=== PATIENT | female | born 1955 | race Caucasian/White ===

== ENCOUNTER 2024-03-03 15:13 | Emergency (ER) | payer MEDICARE, SELFPAY ==
[2024-03-03] VITALS (14 sets, daily range): BP systolic 80–101; BP diastolic 52–59; PULSE 56–80; RESP 18–20; TEMP 36.2–36.9; O2SAT 87–100; BMI 20.2
--- NOTE | 2024-03-03 17:17 | ED_ITS ---
HPI - General Adult General Time Seen by Provider: 17:17 Date Seen: 03/03/24 Chief complaint: Nausea/Vomiting Stated complaint: Vomiting blood, cough Time Seen by Provider: 03/03/24 17:17 Source: patient and RN notes reviewed Mode of arrival: ambulatory Limitations: no limitations History of Present Illness HPI narrative: Мария is a very pleasant 69-year-old female with a history of anxiety, hiatal hernia status post repair who comes to the emergency room for evaluation of vomiting of blood, epigastric pain and blood in stool. Patient notes the onset of vomiting and diarrhea 48 hours ago. She notes that she also has a cough and some phlegm when coughing. She states that she has had blood in her vomit and stool but when pressed for more details about how much she has a challenging historian. She states that she has had a history of surgeries for a hiatal hernia and even had to have her esophagus stretched. She notes that the discomfort in her upper abdomen is worse with lying down. She recently moved to [place] from [place]. She sees Dr. Dye and has been did [facility] 1 time. This is her 1st visit to [place]. She is supposed to follow-up with GI specialist in the next 2 weeks. Related Data Home Medications ?Medication ?Instructions ?Recorded ?Confirmed buspirone PO BID 03/03/24 levothyroxine 50 mcg capsule 50 mcg PO DAILY 03/03/24 03/03/24 metoprolol succinate PO DAILY 03/03/24 Allergies Allergy/AdvReac Type Severity Reaction Status Date / Time copper Allergy Mild rash Verified 03/03/24 15:35 rubén Allergy Mild rash Uncoded 03/03/24 15:34 Review of Systems Status of ROS: Reports: 10 or more systems reviewed and unremarkable except as noted in History and below Const: Reports: chills and fatigue; Denies: fever Eyes: Denies: change in vision ENMT: Denies: throat pain, neck pain, throat swelling or nasal congestion Cardio: Reports: chest pain and lightheadedness; Denies: swelling of feet/ankles or shortness of breath with exertion Resp: Reports: cough; Denies: shortness of breath GI: Reports: abdominal pain, nausea, vomiting, diarrhea and blood in stool : Denies: painful urination Musculo: Denies: back pain or neck pain Endo: Reports: fatigue Allergy/Immuno: Denies: throat swelling PFSH PFS Social History Smoking Status: Never smoker Do you use any of these nicotine containing products: None How often do you have a drink containing alcohol: never AUDIT-C Alcohol total score: 0 Non-prescribed substance use: denies use Exam Narrative: Exam Narrative: Мария is alert and oriented. She has good color in the room. External ears eyes nose clear. Oral cavity with moist mucous membranes. Neck is supple. Heart with regular rate and rhythm and lungs are clear. Abdomen is soft without significant tenderness. Lower extremities without edema or calf tenderness. Const: Vital Signs, click to edit/add: Vital Signs - 24 hr 03/03/24 15:28 03/03/24 17:22 03/03/24 17:24 Temperature 98.4 F 98.2 F Pulse Rate 56 L Pulse Rate [Pulse Oximeter] 66 67 Respiratory Rate 20 20 Blood Pressure 97/59 L Blood Pressure [Ri ght Upper Arm] 91/54 L 80/58 L Pulse Oximetry 97 96 97 Oxygen Delivery Me thod Room Air Room Air 03/03/24 17:25 03/03/24 17:27 03/03/24 18:00 Temperature Pulse Rate 74 57 L Pulse Rate [Pulse Oximeter] Respiratory Rate Blood Pressure Blood Pressure [Ri ght Upper Arm] 97/59 L Pulse Oximetry 98 97 Oxygen Delivery Me thod 03/03/24 18:13 03/03/24 18:15 03/03/24 19:00 Temperature Pulse Rate 59 L 62 57 L Pulse Rate [Pulse Oximeter] Respiratory Rate Blood Pressure 92/52 L Blood Pressure [Ri ght Upper Arm] Pulse Oximetry 97 97 98 Oxygen Delivery Me thod 03/03/24 19:15 03/03/24 19:39 03/03/24 19:43 Temperature 97.2 F L Pulse Rate 80 62 Pulse Rate [Pulse Oximeter] 57 L Respiratory Rate 18 Blood Pressure Blood Pressure [Ri ght Upper Arm] 88/57 L Pulse Oximetry 93 87 L 99 Oxygen Delivery Me thod Room Air 03/03/24 20:00 03/03/24 22:31 Temperature Pulse Rate 59 L 59 L Pulse Rate [Pulse Oximeter] Respiratory Rate Blood Pressure 101/59 L Blood Pressure [Ri ght Upper Arm] Pulse Oximetry 95 100 Oxygen Delivery Me thod Room Air Room Air Documenting provider has reviewed patient's vital signs: yes Course Course ED Course: Differential diagnosis includes but is not limited to or influenza, gastroenteritis, esophageal rupture, anxiety, will place IV give 1 L normal saline, Protonix 80 mg and Zofran 4 mg. Reevaluation(s) Reevaluation #1: Patient noted to have persistent low blood pressures 88 without any evidence of tachycardia. Patient is feeling better after morphine 4 mg. In fact she wants to eat and drink. We have not seen any vomiting while in the ER. Upon further discussion she notes that she only had some loose stools briefly and that normally she deals with constipation. She has not had any further stools in the ED. after CT of the chest abdomen and pelvis which is reassuring I do a rectal exam with significant stool in the rectal vault. Fecal occult test is accomplished. Awaiting 2nd hemoglobin check as it was 9.2 at 1744 hours. Chemistry panel reassuring as are LFTs. Patient is negative for RSV influenza and COVID and troponin is negative. Vital Signs Vital signs: Initial Vital Signs Temperature 98.4 F 03/03/24 15:28 Temperature Source Temporal Artery Scan 03/03/24 15:28 Pulse Rate 66 03/03/24 15:28 Respiratory Rate 20 03/03/24 15:28 Blood Pressure 91/54 L 03/03/24 15:28 Blood Pressure Mean 66 L 03/03/24 15:28 Blood Pressure Position Sitting 03/03/24 15:28 Pulse Oximetry 97 03/03/24 15:28 Oxygen Delivery Method Room Air 03/03/24 15:28 Vital Signs Temperature 98.4 F 03/03/24 15:28 Pulse Rate 66 03/03/24 15:28 Respiratory Rate 20 03/03/24 15:28 Blood Pressure 91/54 L 03/03/24 15:28 Pulse Oximetry 97 03/03/24 15:28 Oxygen Delivery Method Room Air 03/03/24 15:28 Temperature 97.2 F L 03/03/24 19:43 Pulse Rate 59 L 03/03/24 22:31 Respiratory Rate 18 03/03/24 19:43 Blood Pressure 101/59 L 03/03/24 22:31 Pulse Oximetry 100 03/03/24 22:31 Oxygen Delivery Method Room Air 03/03/24 22:31 Medications Administered Medications: Discontinued Medications Generic Name Dose Route Start Last Admin Trade Name Micheal PRN Reason Stop Dose Admin Sodium Chloride 1,000 mls @ 1,000 mls/hr 03/03/24 17:33 03/03/24 19:14 0.9 % Sodium Chloride 1000 Ml IV 03/03/24 18:32 Infused .Q1H MATHIEU Infusion Morphine Sulfate 4 mg 03/03/24 18:53 03/03/24 18:59 Morphine 4 Mg/Ml Inj IVP 03/03/24 18:54 4 mg ONCE ONE Administration Ondansetron HCl 4 mg 03/03/24 17:46 03/03/24 18:11 Ondansetron 2 Mg/Ml Inj IVP 03/03/24 17:47 4 mg ONCE ONE Administration Pantoprazole Sodium 80 mg 03/03/24 17:32 03/03/24 18:08 Pantoprazole Sodium 40 Mg Inj IVP 03/03/24 17:33 80 mg ONCE ONE Administration Medical Decision Making MDM Narrative Medical decision making narrative: 1. Anemia-patient describes 2 days of blood in vomit and stool but has not had any vomiting or diarrhea while in the ED. she had a fecal occult test of the stool which was negative. Hemoglobin in mid January 08 0.3 and upon arrival here today 9.2. Post 1 L of normal saline administration patient's hemoglobin was 8.7. Did recheck hemoglobin once again and a was 8.5 essentially unchanged. During her time here she never had any evidence of tachycardia. She does describe dizziness earlier today that has now resolved. Initial plan was to admit patient for serial hemoglobin checks. Hospitalist was able to look at past records in this does appear to be more of a chronic problem. Even though she was describing 2 days of vomiting we have not seen any thing here and again, fecal occult test negative. There was some low blood pressures noted but nursing staff states that patient was lying on that side or moving about. A recheck of blood pressure was 101/59. Patient certainly notes that she is feeling better at this time. 2. Nausea vomiting-patient describes significant GERD at times. Did give her Protonix 40 mg IV. Plan on Zofran 4 mg ODT Q 8 hours p.r.n. 10. With no refill via [facility] at this time. Also recommend continuing omeprazole 20 mg daily over the counter until seen by GI. Able to tolerate p.o. while in the ED. note EKG and troponin reassuring with no evidence of cardiac ischemia. 3. Disposition-home at this time. Patient agree she feels comfortable going home. No evidence of bleeding while in the ED. recommend follow-up with primary MD. May want to consider iron infusions while awaiting GI consult on March 16. Patient will return for worsening symptoms and as needed. Lab Data Lab results reviewed: Yes I reviewed the patient's lab results Labs: Lab Results 03/03/24 03/03/24 03/03/24 Range/Units 17:32 17:44 20:40 WBC 6.48 (4.50-11.00) K/uL RBC 4.76 (4.00-5.20) m/uL Hgb 9.2 L (12.0-16.0) gm/dL Hct 31.9 L (33.0-51.0) % MCV 67 L (80-100) fL MCH 19 L (26-34) pg MCHC 29 L (32-36) gm/dL RDW Coeff of Krissy 17.8 H (11.5-15.5) % Plt Count 344 (140-440) K/uL Neut % (Auto) 53.2 (42.0-72.0) % Lymph % (Auto) 36.1 (20-44) % Braxton % (Auto) 7.3 (0.0-11.0) % Eos % (Auto) 3.2 (0.0-7.0) % Baso % (Auto) 0.2 (0.0-3.0) % Neut # (Auto) 3.45 (1.7-7.0) K/uL Lymph # (Auto) 2.34 (0.90-2.90) K/uL Braxton # (Auto) 0.50 (0.00-0.90) K/UL Eos # (Auto) 0.21 (0.00-0.50) K/uL Baso # (Auto) 0.01 (0.00-0.30) K/uL Abs Immat Gran (auto) 0.00 (0.00-0.30) K/uL Imm/Tot Granulo (auto) 0.0 % Sodium 137 (135-149) mmol/L Potassium 3.9 (3.6-5.1) mmol/L Chloride 107 (96-114) mmol/L Carbon Dioxide 24 (20-32) mmol/L Anion Gap 6 L (7-15) mEq/L BUN 21 (7-30) mg/dL Creatinine 0.7 (0.5-1.5) mg/dL Estimated Creat Clear 48.19 Estimated GFR 94 ml/min Glucose 100 (60-115) mg/dL Lactate 0.7 (0.5-1.9) mmol/L Calcium 8.8 (8.4-10.6) mg/dL Magnesium 1.9 (1.5-2.6) mg/dL Total Bilirubin 0.4 (0.1-1.5) mg/dL AST 17 (12-35) U/L ALT 13 (4-35) U/L Alkaline Phosphatase 97 (40-150) U/L Total Protein 6.3 (6.0-8.3) g/dL Albumin 3.8 (3.3-5.0) g/dL Stool Occult Blood Negative (Negative) SARS-CoV-2 (PCR) Negative SARS-CoV-2 (Negative) Influenza Type A (PCR) Negative PCR FLU A (Negative) Influenza Type B (PCR) Negative PCR FLU B (Negative) RSV (PCR) Negative PCR RSV (Negative) POC Troponin I 0.00 L (0.01-0.04) ng/ml Blood Type Antibody Screen 03/03/24 03/03/24 Range/Units 20:45 23:36 WBC (4.50-11.00) K/uL RBC (4.00-5.20) m/uL Hgb 8.7 L 8.5 L (12.0-16.0) gm/dL Hct (33.0-51.0) % MCV (80-100) fL MCH (26-34) pg MCHC (32-36) gm/dL RDW Coeff of Krissy (11.5-15.5) % Plt Count (140-440) K/uL Neut % (Auto) (42.0-72.0) % Lymph % (Auto) (20-44) % Braxton % (Auto) (0.0-11.0) % Eos % (Auto) (0.0-7.0) % Baso % (Auto) (0.0-3.0) % Neut # (Auto) (1.7-7.0) K/uL Lymph # (Auto) (0.90-2.90) K/uL Braxton # (Auto) (0.00-0.90) K/UL Eos # (Auto) (0.00-0.50) K/uL Baso # (Auto) (0.00-0.30) K/uL Abs Immat Gran (auto) (0.00-0.30) K/uL Imm/Tot Granulo (auto) % Sodium (135-149) mmol/L Potassium (3.6-5.1) mmol/L Chloride (96-114) mmol/L Carbon Dioxide (20-32) mmol/L Anion Gap (7-15) mEq/L BUN (7-30) mg/dL Creatinine (0.5-1.5) mg/dL Estimated Creat Clear Estimated GFR ml/min Glucose (60-115) mg/dL Lactate (0.5-1.9) mmol/L Calcium (8.4-10.6) mg/dL Magnesium (1.5-2.6) mg/dL Total Bilirubin (0.1-1.5) mg/dL AST (12-35) U/L ALT (4-35) U/L Alkaline Phosphatase (40-150) U/L Total Protein (6.0-8.3) g/dL Albumin (3.3-5.0) g/dL Stool Occult Blood (Negative) SARS-CoV-2 (PCR) (Negative) Influenza Type A (PCR) (Negative) Influenza Type B (PCR) (Negative) RSV (PCR) (Negative) POC Troponin I (0.01-0.04) ng/ml Blood Type O Positive Antibody Screen NEGATIVE Imaging Data CT Chest/Ab/Pelvis: Attestation: I have reviewed the pertinent imaging results. Radiologist's impression: Cardiovascular structures: Heart size is normal. Thoracic aorta and main pulmonary artery are normal in caliber. Mediastinum and juliocesar: No mass or adenopathy. Moderate hiatal hernia. Lungs and pleura: Lungs and pleural spaces are clear. No suspicious nodules, infiltrates, or effusions. Chest wall and axilla: No mass or adenopathy. Bones: No suspicious bone lesions. Unremarkable for age. ABDOMEN AND PELVIS: Liver: Unremarkable. Gallbladder and bile ducts: Cholelithiasis without CT evidence of cholecystitis. Pancreas: Unremarkable. Spleen: Unremarkable. Adrenal glands: Unremarkable. Kidneys: Unremarkable. GI tract: Sigmoid diverticulosis without evidence of diverticulitis. Above average colonic stool volume. Appendix is within normal limits. No bowel obstruction. Moderate hiatal hernia. Vascular structures: Unremarkable. Lymph nodes: Unremarkable. Miscellaneous: Unremarkable. No free air or significant free fluid. Pelvic Organs: Unremarkable. Bones: No suspicious bone lesions. Unremarkable for age. IMPRESSION: 1. moderate hiatal hernia. Otherwise, no acute intra-abdominal process identified. 2. Cholelithiasis without CT evidence of cholecystitis. 3. Above average colonic stool volume, can be seen the setting of constipation. 4. Sigmoid diverticulosis without evidence of diverticulitis. ECG Data Attestation: I personally reviewed and interpreted this ECG as follows: Interpretation: EKG by my read shows sinus bradycardia at a rate of 53. I do not note any acute ST or T-wave changes. TX and QT intervals within normal limits. Discharge Plan Discharge Clinical Impression: Anemia, History of gastrointestinal bleeding Patient Disposition: Home, Self-Care Condition: Improved Additional Instructions: Zofran as needed for nausea. This was sent to [facility]. Omeprazole is an [id number] medication that inhibits acid production in the stomach. You should be taking this daily. 20 mg or 1 tablet. Follow-up with your primary MD to start iron infusions prior to seeing GI later this month. Return to the emergency room for worsening symptoms. Prescriptions: No Action levothyroxine 50 mcg capsule 50 mcg PO DAILY buspirone PO BID metoprolol succinate PO DAILY Follow Up/Referrals: Provider,Not a Local [Primary Care Provider] - Stand Alone Forms: [employer] Info Instructions
[2024-03-03 17:52] LABS: Lactate* 0.7 mmol/L (0.5-1.9)
[2024-03-03 17:55] LABS: Basophils Absolute Auto 0.01 K/uL (0.00-0.30); Basophils Percent Auto 0.2 % (0.0-3.0); Eosinophils Absolute Auto 0.21 K/uL (0.00-0.50); Eosinophils Percent Auto 3.2 % (0.0-7.0); Hematocrit 31.9 % (33.0-51.0); Hemoglobin* 9.2 gm/dL (12.0-16.0); Lymphocytes Absolute Auto 2.34 K/uL (0.90-2.90); Lymphocytes Percent Auto 36.1 % (20-44); Mean Corpuscular HGB Conc 29 gm/dL (32-36); Mean Corpuscular Hemoglobin 19 pg (26-34); Mean Corpuscular Volume 67 fL (80-100); Monocytes Percent Auto 7.3 % (0.0-11.0); Neutrophils Absolute Auto 3.45 K/uL (1.7-7.0); Neutrophils Percent Auto 53.2 % (42.0-72.0); Platelet Count* 344 K/uL (140-440); RDW Coefficient of Variation % 17.8 % (11.5-15.5); Red Blood Count 4.76 m/uL (4.00-5.20); White Blood Count* 6.48 K/uL (4.50-11.00)
[2024-03-03 17:56] LABS: Slide Review Reflex No
[2024-03-03] MEDS: 0.9 % SODIUM CHLORIDE 1000 ml 1,000 ML IV (18:07)
[2024-03-03] MEDS: PANTOPRAZOLE SODIUM 40 MG INJ 80 MG IVP (18:08)
[2024-03-03] MEDS: ONDANSETRON 2 MG/ML inj 4 MG IVP (18:11)
[2024-03-03 18:12] LABS: Albumin* 3.8 g/dL (3.3-5.0)
[2024-03-03 18:13] LABS: Chloride* 107 mmol/L (96-114); Potassium* 3.9 mmol/L (3.6-5.1); Sodium* 137 mmol/L (135-149)
[2024-03-03 18:15] LABS: Anion Gap 6 mEq/L (7-15); Aspartate Amino Transferase* 17 U/L (12-35); Bilirubin Total* 0.4 mg/dL (0.1-1.5); Carbon Dioxide* 24 mmol/L (20-32); Creatinine* 0.7 mg/dL (0.5-1.5); Est. Creatinine Clearance* 48.19; Estimated Glomerular Filt Rate 94 ml/min; Total Protein* 6.3 g/dL (6.0-8.3)
[2024-03-03 18:16] LABS: Alanine Aminotransferase* 13 U/L (4-35); Alkaline Phosphatase* 97 U/L (40-150); Blood Urea Nitrogen* 21 mg/dL (7-30); Calcium* 8.8 mg/dL (8.4-10.6); Glucose* 100 mg/dL (60-115)
[2024-03-03 18:30] LABS: Magnesium* 1.9 mg/dL (1.5-2.6)
[2024-03-03 18:31] LABS: PCR FLU A Negative PCR FLU A (Negative); PCR FLU B Negative PCR FLU B (Negative); PCR RSV Negative PCR RSV (Negative); SARS PCR* Negative SARS-CoV-2 (Negative)
--- OUTSIDE RECORDS SUMMARY | 2024-03-03 18:51 | XMS_ITS | Clinical Summary ---
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 4 Active ferrous sulfate 325 mg delayed release tablet Take 325 mg by mouth once daily. Active levothyroxine (SYNTHROID) 50 mcg tabletIndications:A cquired hypothyroidism Take 1 Tablet (50 mcg) by mouth once daily. 90 Tablet 2 4 Active escitalopram oxalate (LEXAPRO) 20 mg tabletIndications:A nxiety,Major depressive disorder with current active episode, unspecified depression episode severity, unspecified whether recurrent,Bipolar affective disorder in remission (HC) Take 1 Tablet (20 mg) by mouth once daily. 90 Tablet 4 Active ARIPiprazole (Abilify) 5 mg tabletIndications:A nxiety,Major depressive disorder with current active episode, unspecified depression episode severity, unspecified whether recurrent,Bipolar affective disorder in remission (HC) Take 1 Tablet (5 mg) by mouth once daily. 90 Tablet 4 Active busPIRone (BUSPAR) 30 mg tabletIndications:A nxiety Take 1 Tablet (30 mg) by mouth two times daily. 180 Tablet 4 Active sucralfate (CARAFATE) 1 gram tabletIndications:E sophageal stricture Take 1 Tablet (1 g) by mouth four times daily before meals and at bedtime. 120 Tablet 2 Active propranoloL (INDERAL) 20 mg tabletIndications:A nxiety,HTN (hypertension) Take 0.5 Tablets (10 mg) by mouth two times daily. 90 Tablet Active Active Problems Problem Noted Date Diagnosed Date Anxiety 01/04/2024 Hiatal hernia 01/04/2024 Iron deficiency anemia 01/04/2024 Major depressive disorder with current active ep isode 01/04/2024 HTN (hypertension) 01/04/2024 Paroxysmal atrial fibrillation 01/04/2024 Esophageal stricture 01/04/2024 History of repair of hiatal hernia 01/04/2024 Lactic acidosis 09/15/2023 Upper GI bleed 09/15/2023 Bipolar affective disorder in remission 09/15/19 24 Acquired hypothyroidism 09/15/2023 Encounters Date Type Department Care Team Description 02/07/2024 Telephone [facility] [address] [facility] [address] [place] [address] Kailash Batista MD Appointment Reminder (previsit intake call ) 01/10/2024 Telephone [facility] [address] [place] [address] Nancy Lucero NP Appointment 01/09/2024 3:04 PM WHOLESALE BUYER - 01/09/2024 7:11 PM WHOLESALE BUYER Emergency [facility] [address] [place] [address] Kevin Garcia PA Gastritis with hemorrhage, unspecified chronicity, unspecified gastritis type (Primary Dx); Esophagitis; Urinary tract infection with hematuria, site unspecified Discharge Disposition: Home Self Care 01/09/2024 Travel 01/06/2024 Refill [facility] [address] [place] [phone] Chelsea Dye NP Refill Request (Cephalexin) 01/06/2024 Nurse Triage [facility] Centralized Nurse Triage Pcp, No Error-please disregard 01/06/2024 Telephone [facility] [address] [place] [phone] Chelsea Dye NP Medication Management 01/05/[address] [phone] Chelsea Dye NP Results 01/04/2024 2:20 PM WHOLESALE BUYER Office Visit [address] [phone] Chelsea Dye NP Establish Care (renew medications, upcoming surgery) 01/04/2024 Travel 12/12/2023 Telephone [facility] [address] [place] [phone] Aleisha Paulino NP 12/10/2023 3:45 PM CDT Office Visit [facility] [address] [place] [phone] Katie Broderick NP UTI (x 1 day) 12/10/2023 Travel from Last 3 Months Family History Medical History Relation Name Comments Heart attack Brother Congenital heart disease Father Hypertension Father Arthritis Mother Cancer-breast Mother Cancer-ovarian Mother Relation Name Status Comments Brother Father Mother Social History Tobacco Use Types Packs/Day Years Used Date Smoking Tobacco: Never Smokeless Tobacco: Never Tobacco Cessation:Counseling Given: Not Answered Alcohol Use Standard Drinks/Week Comments Not Currently 0 (1 standard drink = 0.6 oz pur e alcohol) [facility] Utilities Answer Date Recorded Do you have trouble paying f or utilities (for example, heat, electricity, water, phone)? Yes 01/04/2024 PHQ-2 Answer Date Recorded PHQ-2 TOTAL SCORE 4 01/04/2024 Social Connections Answer Date Recorded Do you often feel lonely or isolated from those around you? 0 01/04/2024 Financial Resource Strain Answer Date R ecorded Difficulty of Paying Living Expenses 3 01/04/2024 Difficulty of Paying Living Expenses Not on file 01/04/2024 Food Insecurity Answer Date Recorded Do you worry your food will run out before you are able to buy more? 1 01/04/2024 Transportation Needs Answer Date Record ed Does lack of transportation keep you from medica l appointments? 1 01/04/2024 Does lack of transportation keep you from work, meetings or getting things that you need? 1 01/04/2024 Housing Stability Answer Date Recorded What is your housing situation today? 1 01/04/2024 Interpersonal Safety Answer Date Record ed Are you being hit, kicked, p ushed or yelled at (see row info)? No 01/09/2024 Interpersonal Safety Abuse 12 - 18 Not on file 01/09/2024 Interpersonal Safety Ambulatory Vulnerability No t on file 01/09/2024 Comments No Sex and Gender Information Value Date Recorded Sex Assigned at Not on file Legal Sex Female 1:31 PM CDT Gender Identity Not on file Sexual Orientation Not on file Occupation Industry Job Start Date Job End Date Not on file Not on file Not on file Not on file Obstetrics History Last Filed Vital Signs Vital Sign Reading Time Taken Comments Blood Pressure 110/61 01/09/2024 7:10 PM WHOLESALE BUYER Pulse 68 01/09/2024 7:10 PM WHOLESALE BUYER Temperature 36.9 C (98.4 F) 01/09/2024 3:16 PM WHOLESALE BUYER Respiratory Rate 16 01/09/2024 3:16 PM WHOLESALE BUYER Oxygen Saturation 98% 01/09/2024 7:10 PM WHOLESALE BUYER Inhaled Oxygen Concentration - - Weight 59.4 kg (130 lb 14.4 oz) 01/09/2024 3:16 PM WHOLESALE BUYER Height 167.6 cm (5' 6) 01/09/2024 3:16 PM WHOLESALE BUYER Body Mass Index 21.13 01/09/2024 3:16 PM WHOLESALE BUYER Plan of Treatment Upcoming Encounters Date Type Department Care Team (Late st Contact Info) Description 03/16/2024 2:30 PM WHOLESALE BUYER Office Visit [facility] [address] [place] [address] Didier Brink MD [address] [place] [address] Health Maintenance Due Date Last Done Comments Tdap 01/14/1967 Hepatitis C screening for ag e 18-79 01/14/1974 Pneumococcal series for age 50+ (1 of 2 - PCV) 01/14/1975 Tetanus booster 1976 Colonoscopy through age 75 01/14/2001 Lipids for age 45-75 01/14/2001 Mammogram for age 45-75 01/14/2001 Zoster (shingles) series for age 50+ (1 of 2) 01/14/2006 RSV vaccine for adults or (1 - Risk 60-74 years 1-dose series) 2016 DEXA/DXA scan for age 65+ 01/14/2021 Medicare Wellness for age 65+ 01/14/2021 COVID-19 vaccine series (1 - 2023- season) 2023 Influenza for age 65+ 10/31/2023 BMI (ht and wt on same day) for age 18+ 01/03/2025 01/04/2024 Depression screening for age 12+ 01/05/2025 01/06/2024, 01/06/2024, 01/05/2024, Additional history exists Procedures Procedure Name Priority Date/Time Associated Diagnosis Comments CT CHEST ABDOMEN PELVIS W STAT 01/09/2024 5:49 PM WHOLESALE BUYER TROPONIN T (HS) ONE TIME Timed 01/09/2024 5:49 PM WHOLESALE BUYER XR CHEST 2 VIEWS PA AND LATERAL STAT 01/09/2024 4:40 PM WHOLESALE BUYER EKG 12 LEAD STAT 01/09/2024 4:25 PM WHOLESALE BUYER URINE CULTURE TAYLOR 01/09/2024 4:07 PM WHOLESALE BUYER URINALYSIS MICROSCOPIC STAT 4:07 PM WHOLESALE BUYER UA W/ SEDIMENT EXAM REFLEXED PER CRITERIA STAT 01/09/2024 4:07 PM WHOLESALE BUYER TYPE & SCREEN STAT 01/09/2024 3:45 PM WHOLESALE BUYER CWS PATH REVIEW HEMATOLOGY STAT 01/09/2024 3:45 PM WHOLESALE BUYER RED CELL MORPHOLOGY STAT 01/09/2024 3 :45 PM WHOLESALE BUYER PLATELET ESTIMATE STAT 01/09/2024 3:4 5 PM WHOLESALE BUYER MANUAL DIFFERENTIAL STAT 01/09/2024 3 :45 PM WHOLESALE BUYER TROPONIN T (HS) ACUTE W/2HR REFLEX STAT 01/09/2024 3:45 PM WHOLESALE BUYER CBC WITH AUTO DIFFERENTIAL STAT 01/09/2024 3:45 PM WHOLESALE BUYER LIPASE STAT 01/09/2024 3:45 PM WHOLESALE BUYER CBC WITH AUTO DIFFERENTIAL STAT 01/09/2024 3:45 PM WHOLESALE BUYER COMP METABOLIC PANEL STAT 01/09/2024 3:45 PM WHOLESALE BUYER RETICULOCYTES Routine 01/04/2024 4:00 PM WHOLESALE BUYER Iron deficiency anemia, unspecified iron deficiency anemia type FERRITIN Routine 01/04/2024 4:00 PM WHOLESALE BUYER Iron deficiency anemia, unspecified iron deficiency anemia type IRON PLUS IRON BINDING CAP Routine 01/04/2024 4:00 PM WHOLESALE BUYER Iron deficiency anemia, unspecified iron deficiency anemia type BASIC METABOLIC PANEL Routine 01/04/2024 4:00 PM WHOLESALE BUYER HTN (hypertension) CBC WITH AUTO DIFFERENTIAL Routine 01/04/2024 4:00 PM WHOLESALE BUYER Iron deficiency anemia, unspecified iron deficiency anemia type URINALYSIS MICROSCOPIC STAT 4:00 PM CDT Dysuria URINE CULTURE STAT 12/10/2023 4:00 PM CDT Dysuria UA W/ SEDIMENT EXAM REFLEXED PER CRITERIA STAT 12/10/2023 4:00 PM CDT Dysuria from Last 3 Months Results * CT CHEST ABDOMEN PELVIS W (01/09/2024 5:49 PM WHOLESALE BUYER) Anatomical Region Laterality Modality Abdomen, Pelvis, AORTA, LIVER, SPLEEN, CHEST Computed Tomography 01/09/2024 6:16 PM WHOLESALE BUYER Impressions 01/09/2024 6:16 PM WHOLESALE BUYER 1. Small 4 millimeter pulmonary nodule follow-up per Fleischner society guidelines 2. Diffuse wall thickening of the esophagus could be seen with reflux or esophagitis. Moderate hiatal hernia. No free air in the upper abdomen or inflammatory changes. 3. There is bilateral urothelial thickening extending along the ureters. This can be seen with UTI. There is marked wall thickening and inflammatory stranding with mucosal enhancement of the urinary bladder. This could be correlated for possible cystitis. Please note that all CT scans at this facility use dose modulation, iterative reconstruction, and/or weight-based dosing when appropriate to reduce radiation dose to as low as reasonably achievable. Dictated by Kathi Veliz MD @ 01/09/2024 6:16:55 PM (Electronically Signed) Narrative 01/09/2024 6:16 PM WHOLESALE BUYER For Patients: As a result of the Cures Act, medical imaging exams and procedure reports are released immediately into your electronic medical record. You may view this report before your referring provider. If you have questions, please contact your health care provider. INDICATION: . Epigastric pain history of hiatal hernia and peptic ulcers TECHNIQUE: CT chest, abdomen and pelvis acquired with 100 mL Omnipaque 300 COMPARISON: None. FINDINGS: CHEST: Cardiovascular structures: Heart size is normal. Thoracic aorta and main pulmonary artery are normal in caliber. No pulmonary emboli. Mediastinum and juliocesar: No mass or adenopathy. Lungs and pleura: 4 millimeter peripheral right upper lobe nodule 3/78. Chest wall and axilla: No mass or adenopathy. ABDOMEN AND PELVIS: Liver: Unremarkable. Gallbladder and bile ducts: Cholelithiasis Pancreas: Unremarkable. Spleen: Unremarkable. Adrenal glands: Unremarkable. Kidneys: Urothelial thickening of both renal pelves and ureters slight prominence of the renal pelves series no obstructing calculi seen GI tract: Diffuse esophageal wall thickening moderate hiatal hernia. No free air or inflammatory change. Diverticulosis normal appendix bowel appears unremarkable Vascular structures: Abdominal aorta is normal in caliber. Lymph nodes: Unremarkable. Pelvic Organs: There is marked wall thickening of the urinary bladder with diffuse pericystic inflammatory change there is mucosal enhancement. Bones: No suspicious bone lesions. Procedure Note Kathi Veliz MD - 01/09/2024 For Patients: As a result of the Cures Act, medical imagingexams and procedure reports are released immediately into your electronicmedical record. You may view this report before your referring provider.If you have questions, please contact your health care provider. INDICATION: . Epigastric pain history of hiatal hernia and peptic ulcers TECHNIQUE: CT chest, abdomen and pelvis acquired with 100 mL Omnipaque 300 COMPARISON: None. FINDINGS: CHEST: Cardiovascular structures: Heart size is normal. Thoracic aorta and mainpulmonary artery are normal in caliber. No pulmonary emboli. Mediastinum and juliocesar: No mass or adenopathy. Lungs and pleura: 4 millimeter peripheral right upper lobe nodule . Chest wall and axilla: No mass or adenopathy. ABDOMEN AND PELVIS: Liver: Unremarkable. Gallbladder and bile ducts: Cholelithiasis Pancreas: Unremarkable. Spleen: Unremarkable. Adrenal glands: Unremarkable. Kidneys: Urothelial thickening of both renal pelves and ureters slightprominence of the renal pelves series no obstructing calculi seen GI tract: Diffuse esophageal wall thickening moderate hiatal hernia. Nofree air or inflammatory change. Diverticulosis normal appendix bowelappears unremarkable Vascular structures: Abdominal aorta is normal in caliber. Lymph nodes: Unremarkable. Pelvic Organs: There is marked wall thickening of the urinary bladder withdiffuse pericystic inflammatory change there is mucosal enhancement. Bones: No suspicious bone lesions. IMPRESSION: 1. Small 4 millimeter pulmonary nodule follow-up per Fleischner societyguidelines 2. Diffuse wall thickening of the esophagus could be seen with reflux oresophagitis. Moderate hiatal hernia. No free air in the upper abdomen or inflammatorychanges. 3. There is bilateral urothelial thickening extending along the ureters.This can be seen with UTI. There is marked wall thickening andinflammatory stranding with mucosal enhancement of the urinary bladder.This could be correlated for possible cystitis. Please note that all CT scans at this facility use dose modulation,iterative reconstruction, and/or weight-based dosing when appropriate toreduce radiation dose to as low as reasonably achievable. Dictated by Kathi Veliz MD @ 01/09/2024 6:16:55 PM (Electronically Signed) us Kevinyarely FONG CT Final Re sult * TROPONIN T (HS) ONE TIME (01/09/2024 5:49 PM WHOLESALE BUYER) TROPONIN T HS <6 6-10 ng/L ng/L 01/09/2024 6:12 PM WHOLESALE BUYER [facility] Blood BLOOD SPECIMEN / Unknown Venipuncture / Unknown 01/09/2024 5:49 PM WHOLESALE BUYER 01/09/2024 5:52 PM WHOLESALE BUYER us Kevin Liang Garcia PA CHEMISTRY Final Re sult [facility] [address] [place] [address] * XR CHEST 2 VIEWS PA AND LATERAL (01/09/2024 4:40 PM WHOLESALE BUYER) Anatomical Region Laterality Modality CHEST, THORAX, Lung, HEART Digit al Radiography 01/09/2024 5:07 PM WHOLESALE BUYER Impressions 01/09/2024 5:07 PM WHOLESALE BUYER 1. No focal consolidation. 2. Hyperinflated lungs, may reflect component of underlying emphysema. Dictated by Faustino Francois MD @ 01/09/2024 5:07:55 PM (Electronically Signed) Narrative 01/09/2024 5:07 PM WHOLESALE BUYER For Patients: As a result of the Cures Act, medical imaging exams and procedure reports are released immediately into your electronic medical record. You may view this report before your referring provider. If you have questions, please contact your health care provider. INDICATION: Chest pain. TECHNIQUE: Chest 2 view(s) COMPARISON: None available. FINDINGS: Cardiomediastinal silhouette and pulmonary vasculature are normal. Hyperinflated lungs, may reflect component of underlying emphysema. Peripheral calcifications in the central airways are noted. No focal consolidation. No layering pleural effusion. No pneumothorax. Multilevel degenerative changes of the visualized spine. Procedure Note Faustino Francois MD - 01/09/2024 For Patients: As a result of the Cures Act, medical imagingexams and procedure reports are released immediately into your electronicmedical record. You may view this report before your referring provider.If you have questions, please contact your health care provider. INDICATION: Chest pain. TECHNIQUE: Chest 2 view(s) COMPARISON: None available. FINDINGS: Cardiomediastinal silhouette and pulmonary vasculature are normal. Hyperinflated lungs, may reflect component of underlying emphysema.Peripheral calcifications in the central airways are noted. No focalconsolidation. No layering pleural effusion. No pneumothorax. Multilevel degenerative changes of the visualized spine. IMPRESSION: 1. No focal consolidation. 2. Hyperinflated lungs, may reflect component of underlying emphysema. Dictated by Faustino Francois MD @ 01/09/2024 5:07:55 PM (Electronically Signed) Kevin FONG GENERAL IMAGING Final Re sult * EKG 12 LEAD (01/09/2024 4:25 PM WHOLESALE BUYER) Pathologist [facility] Interpretation Normal sinus rhythm Normal ECG No stemi, No prior BEYOND NOW Ventricular Rate 76 BPM BEYOND NOW Atrial Rate 76 BPM BEYOND NOW P-R Interval 144 ms BEYOND NOW QRS Duration 76 ms BEYOND NOW QT 424 ms BEYOND NOW QTc 477 ms BEYOND NOW P [place] 61 degrees BEYOND NOW R [place] 67 degrees BEYOND NOW T [place] 62 degrees BEYOND NOW 01/09/2024 4:25 PM WHOLESALE BUYER 01/09/2024 9:15 PM WHOLESALE BUYER Kevin FONG EKG ORD Final Re sult BEYOND NOW [place], [place] * (ABNORMAL) URINALYSIS MICROSCOPIC (01/09/2024 4:07 PM WHOLESALE BUYER) Only the most recent of2 resultswithin the time period is included. RBC 6-10(A) 0-2, None Seen /HPF 01/09/2024 4:41 PM WHOLESALE BUYER [facility] WBC >100(A) 0-2, 3-5, None Seen /HPF 01/09/2024 4:41 PM WHOLESALE BUYER [facility] BACTERIA Many(A) None Seen, Rare, Few Bacteria/ HPF 01/09/2024 4:41 PM WHOLESALE BUYER [facility] EPITHELIAL CELLS Many(A) None Seen, Few Epi/HPF 01/09/2024 4:41 PM WHOLESALE BUYER [facility] WHITE CELL CLUMPS Present(A) (none) 01/09/2024 4:41 PM WHOLESALE BUYER [facility] Urine URINE SPECIMEN / Unknown Non-Blood / Unknown 01/09/2024 4:07 PM WHOLESALE BUYER 01/09/2024 4:33 PM WHOLESALE BUYER us Kevinyarely FONG URINE Final Re sult [facility] [address] [place] [address] * (ABNORMAL) URINE CULTURE (01/09/2024 4:07 PM WHOLESALE BUYER) Only the most recent of2 resultswithin the time period is included. CULTURE RESULT(A) 01/11/2024 12:45 PM WHOLESALE BUYER [facility] CULTURE >100,000 CFU/mL Klebsiella pneumoniae 01/11/2024 12:45 PM WHOLESALE BUYER [facility] Urine URINE SPECIMEN / Unknown Non-Blood / Unknown 01/09/2024 4:07 PM WHOLESALE BUYER 01/09/2024 4:33 PM WHOLESALE BUYER Narrative Organism Antibiotic Method Susceptibility Klebsiella pneumoniae TRIMETHOPRIM/SULF <=/19: S Klebsiella pneumoniae AMPICILLIN >=32: R Klebsiella pneumoniae CEFAZOLIN 2: S Klebsiella pneumoniae CEFAZOLIN-UC 2: S Comment:Cefazolin-UC interpretations are for therapy of uncomplicated UTIs due to E.coli, K.pneumoniae, or P.mirablis. Cefazolin breakpoint is used as a surrogate to predict results for the oral agents - cefdinir, cefuroxime, and cephalexin, when used for therapy of uncomplicated UTIs due to E coli, K, pneumoniae, and P. mirabilis. The FDA recommends cefadroxil susceptibility can be deduced from cefazolin. Klebsiella pneumoniae GENTAMICIN <=1: S Klebsiella pneumoniae CEFTRIAXONE <=0.25: S Klebsiella pneumoniae CEFTAZIDIME <=0.5: S Klebsiella pneumoniae LEVOFLOXACIN <=0.12: S Klebsiella pneumoniae CIPROFLOXACIN <=0.06: S Klebsiella pneumoniae PIPERACILLIN/TAZO <=4: S Klebsiella pneumoniae AMPICILLIN/SULBACTAM 4: S Klebsiella pneumoniae CEFEPIME <=0.12: S Klebsiella pneumoniae MEROPENEM <=0.25: S Klebsiella pneumoniae NITROFURANTOIN 128: R us Kevin FONG MICROBIOLOGY Final Re sult [facility] [address] [place] [address], [place] * (ABNORMAL) UA W/ SEDIMENT EXAM REFLEXED PER CRITERIA (01/09/2024 4:07 PM WHOLESALE BUYER) Only the most recent of2 resultswithin the time period is included. COLOR Yellow Yellow Color 01/09/2024 4:41 PM [facility] CLARITY Cloudy(A) Clear Clarity 01/09/2024 4:41 PM [facility] SPECIFIC GRAVITY,URINE 1.025 1.010, 1.015, 1.020, 1.025 01/09/2024 4:41 PM [facility] PH,URINE 6.5 6.0, 7.0, 8.0, 5.5, 6.5, 7.5, 8.5 01/09/2024 4:41 PM [facility] UROBILINOGEN, QUALITATIVE Normal Normal EU/dl 01/09/2024 4:41 PM [facility] PROTEIN, URINE 100(A) Negative mg/dL 01/09/2024 4:41 PM [facility] GLUCOSE, URINE Negative Negative mg/dL 01/09/2024 4:41 PM [facility] KETONES,URINE Trace(A) Negative mg/dL 01/09/2024 4:41 PM [facility] BILIRUBIN,URI NE Negative Negative 01/09/2024 4:41 PM [facility] OCCULT BLOOD,URINE Small(A) Negative 01/09/2024 4:41 PM [facility] NITRITE Negative Negative 01/09/2024 4:41 PM [facility] LEUKOCYTE ESTERASE Large(A) Negative 01/09/2024 4:41 PM [facility] Urine URINE SPECIMEN / Unknown Non-Blood / Unknown 01/09/2024 4:07 PM WHOLESALE BUYER 01/09/2024 4:33 PM WHOLESALE BUYER us Kevin FONG URINE Final Re sult Performing Organization Address City/[facility]/ZIP Co de Phone Number [facility] [address] [place] [address] * CWS PATH REVIEW HEMATOLOGY (01/09/2024 3:45 PM WHOLESALE BUYER) PATH COMMENT Reviewed by BB on 01/11/2024 01/11/2024 11:00 AM WHOLESALE BUYER [facility] Blood BLOOD SPECIMEN / Unknown Venipuncture / Unknown 01/09/2024 3:45 PM WHOLESALE BUYER 01/09/2024 3:51 PM WHOLESALE BUYER us Kevin FONG LABORATORY Final Re sult Performing Organization Address City/[facility]/ZIP Co de Phone Number [facility] [address] [address], * TROPONIN T (HS) ACUTE W/2HR REFLEX (01/09/2024 3:45 PM WHOLESALE BUYER) TROPONIN T HS <6 6-10 ng/L ng/L 01/09/2024 4:12 PM WHOLESALE BUYER [facility] Blood BLOOD SPECIMEN / Unknown Venipuncture / Unknown 01/09/2024 3:45 PM WHOLESALE BUYER 01/09/2024 3:51 PM WHOLESALE BUYER Narrative [facility] - 01/09/2024 4:12 PM WHOLESALE BUYER hs-cTnT (Elecsys Troponin T Gen 5) concentration (s) above the sex-specific 99th percentile (16 ng/L or greater for males or 11 ng/L or greater for females) are indicative of myocardial injury. If initial hs-cTnT <=100 ng/L at presentation, a 0h/2h ABSOLUTE (ng/L) delta change (rising or falling) of >=10 ng/L suggests a significant change, whereas a 0h/2h delta change <=3 ng/L suggests no significant change. If initial hs-cTnT >100 ng/L at presentation, a 0h/2h/ RELATIVE (percent, %) delta change of 20% is suggested to distinguish patients with acute vs. chronic myocardial injury. There are multiple etiologies that can cause hs-cTnT increases above the 99th percentile (myocardial injury) other than acute myocardial infarction. Clinical context and careful clinical evaluation are critical for diagnosis and risk-stratification. The diagnosis of acute myocardial infarction requires a rising and/or falling pattern in hs-cTnT concentrations with at least one value above the sex-specific 99th percentile PLUS at least one of the following clinical criteria: ischemic symptoms, new or presumed new significant ST-T wave changes or new LBBB, development of pathological Q waves, imaging evidence of new loss of viable myocardium or new regional wall motion abnormality, or identification of intracoronary atherothrombosis or an acute angiographic culprit on coronary angiography. In appropriate low-risk patients with a non-ischemic electrocardiogram without active chest pain with a symptom onset >3-hours without recurrence, a single initial hs-cTnT<6 ng/L identifies patient with a very low risk in emergency department patient population. Kevin FONG CHEMISTRY Final Re sult [facility] [address] [place] [address] * (ABNORMAL) CBC WITH AUTO DIFFERENTIAL (01/09/2024 3:45 PM WHOLESALE BUYER) Pathologist [facility] WHITE BLOOD COUNT 8.1 4.5 - 11.0 thou/cu mm 01/09/2024 4:30 PM [facility] RED BLOOD COUNT 5.25(H) 4.00 - 5.20 mil/cu mm 01/09/2024 4:30 PM [facility] HEMOGLOBIN 10.3(L) 12.0 - 16.0 g/dL 01/09/2024 4:30 PM [facility] HEMATOCRIT 34.7 33.0 - 51.0 % 01/09/2024 4:30 PM [facility] MCV 66(L) 80 - 100 fL 01/09/2024 4:30 PM [facility] MCH 19.6(L) 26.0 - 34.0 pg 01/09/2024 4:30 PM [facility] MCHC 29.7(L) 32.0 - 36.0 g/dL 01/09/2024 4:30 PM [facility] RDW 19.6(H) 11.5 - 15.5 % 01/09/2024 4:30 PM [facility] PLATELET COUNT 349 140 - 440 thou/cu mm 01/09/2024 4:30 PM [facility] MPV 9.8 6.5 - 11.0 fL 01/09/2024 4:30 PM [facility] Blood BLOOD SPECIMEN / Unknown Venipuncture / Unknown 01/09/2024 3:45 PM WHOLESALE BUYER 01/09/2024 3:51 PM WHOLESALE BUYER Kevin FONG HEMATOLOGY Final Re sult Performing Organization Address City/[facility]/ZIP Co de Phone Number [facility] [address] [place] [address] * (ABNORMAL) RED CELL MORPHOLOGY (01/09/2024 3:45 PM WHOLESALE BUYER) ELLIPTOCYTES Few 01/09/2024 4:30 PM [facility] RBC COMMENT Present(A ) RBC morphology appears normal, RBC morphology within normal limits for newborns. 01/09/2024 4:30 PM [facility] Blood BLOOD SPECIMEN / Unknown Venipuncture / Unknown 01/09/2024 3:45 PM WHOLESALE BUYER 01/09/2024 3:51 PM WHOLESALE BUYER Kevin FONG HEMATOLOGY Final Re sult [facility] [address] [place] [address] * PLATELET ESTIMATE (01/09/2024 3:45 PM WHOLESALE BUYER) PLATELET ESTIMATE Adequate Adequate, No estimate 01/09/2024 4:30 PM [facility] Blood BLOOD SPECIMEN / Unknown Venipuncture / Unknown 01/09/2024 3:45 PM WHOLESALE BUYER 01/09/2024 3:51 PM WHOLESALE BUYER Kevin FONG HEMATOLOGY Final Re sult [facility] [address] [place] [address] * MANUAL DIFFERENTIAL (01/09/2024 3:45 PM WHOLESALE BUYER) % NEUTROPHILS 62.0 % 01/09/2024 4:30 PM WHOLESALE BUYER [facility] % LYMPHOCYTES 29.0 % 01/09/2024 4:30 PM WHOLESALE BUYER [facility] % MONOCYTES 6.0 % 01/09/2024 4:30 PM [facility] % EOSINOPHILS 3.0 % 01/09/2024 4:30 PM [facility] % BASOPHILS 0.0 % 01/09/2024 4:30 PM [facility] NEUTROPHILS ABSOLUTE 5.0 1.7 - 7.0 thou/cu mm 01/09/2024 4:30 PM [facility] LYMPHOCYTES ABSOLUTE 2.3 0.9 - 2.9 thou/cu mm 01/09/2024 4:30 PM [facility] MONOCYTES ABSOLUTE 0.5 <0.9 thou/cu mm 01/09/2024 4:30 PM [facility] EOSINOPHILS ABSOLUTE 0.2 <0.5 thou/cu mm 01/09/2024 4:30 PM [facility] BASOPHILS ABSOLUTE 0.0 <0.3 thou/cu mm 01/09/2024 4:30 PM [facility] Blood BLOOD SPECIMEN / Unknown Venipuncture / Unknown 01/09/2024 3:45 PM WHOLESALE BUYER 01/09/2024 3:51 PM WHOLESALE BUYER Kevin FONG HEMATOLOGY Final Re sult [facility] [address] [place] [address] * TYPE AND SCREEN ONLY (01/09/2024 3:45 PM WHOLESALE BUYER) ABORH O Rh Positive 01/09/2024 4:43 PM WHOLESALE BUYER [facility] BLOOD BANK ANTIBODY SCREEN Negative Negative 01/09/2024 4:43 PM WHOLESALE BUYER [facility] BLOOD BANK SPECIMEN EXPIRATION DATE/TIME 01/12/24 23:59 01/09/2024 4:43 PM WHOLESALE BUYER [facility] BLOOD BANK Blood BLOOD SPECIMEN / Unknown Venipuncture / Unknown 01/09/2024 3:45 PM WHOLESALE BUYER 01/09/2024 3:51 PM WHOLESALE BUYER Kevin FONG BLOOD BANK Final Re sult Performing Organization Address City/[facility]/ZIP Co de Phone Number [facility] BLOOD BANK [address] [place] [address] * LIPASE (01/09/2024 3:45 PM WHOLESALE BUYER) Pathologist [facility] LIPASE 30.7 13.0 - 60.0 IU/L 01/09/2024 4:12 PM WHOLESALE BUYER [facility] Blood BLOOD SPECIMEN / Unknown Venipuncture / Unknown 01/09/2024 3:45 PM WHOLESALE BUYER 01/09/2024 3:51 PM WHOLESALE BUYER us Kevin FONG CHEMISTRY Final Re sult [facility] [address] [place] [address] * (ABNORMAL) COMP METABOLIC PANEL (01/09/2024 3:45 PM WHOLESALE BUYER) Pathologist [facility] SODIUM 141 136 - 145 mmol/L 01/09/2024 4:50 PM [facility] POTASSIUM 3.5 3.5 - 5.1 mmol/L 01/09/2024 4:50 PM [facility] CHLORIDE 103 98 - 107 mmol/L 01/09/2024 4:50 PM [facility] CO2,TOTAL 27 22 - 29 mmol/L 01/09/2024 4:50 PM [facility] ANION GAP 11 5 - 18 01/09/2024 4:50 PM [facility] GLUCOSE 115(H) 70 - 99 mg/dL 01/09/2024 4:50 PM [facility] CALCIUM 9.3 8.8 - 10.4 mg/dL 01/09/2024 4:50 PM [facility] Comment: Reference ranges for this test were updated on 01/04/2024 to reflect our healthy population more accurately. Reference range changes are not retroactively applied to results, but previous results using the same methodology can be interpreted in the context of the new reference range. BUN 14 8 - 23 mg/dL 01/09/2024 4:50 PM [facility] CREATININE 0.61 0.50 - 0.90 mg/dL 01/09/2024 4:50 PM [facility] BUN/CREAT RATIO 23(H) 10 - 20 4:50 PM [facility] eGFR >90 >90 mL/min/1. 73m2 01/09/2024 4:50 PM [facility] Comment:As of 2021, eG FR is calculated by the CKD-EPI creatinine equation without race adjustment. eGFR can be influenced by muscle mass, exercise, and diet. The reported eGFR is an estimation only and is only applicable if the renal function is stable. ALBUMIN 4.1 4.0 - 4.9 g/dL 01/09/2024 4:50 PM [facility] PROTEIN,TOTAL 6.8 6.0 - 8.0 g/dL 01/09/2024 4:50 PM [facility] BILIRUBIN,TOTAL 0.6 0.0 - 1.2 mg/dL 01/09/2024 4:50 PM [facility] ALK PHOSPHATASE 103 35 - 104 IU/L 01/09/2024 4:50 PM [facility] ALT (SGPT) <5(L) 10 - 35 IU/L 01/09/2024 4:50 PM [facility] AST (SGOT) 13 10 - 35 IU/L 01/09/2024 4:50 PM [facility] Blood BLOOD SPECIMEN / Unknown Venipuncture / Unknown 01/09/2024 3:45 PM WHOLESALE BUYER 01/09/2024 3:51 PM WHOLESALE BUYER Kevin FONG CHEMISTRY Final Re sult Performing Organization Address City/[facility]/ZIP Co de Phone Number [facility] [address] [place] [address] * (ABNORMAL) IRON PLUS IRON BINDING CAP (01/04/2024 4:00 PM WHOLESALE BUYER) IRON, TOTAL 13(L) 45 - 160 mcg/dL [facility] IRON BINDING CAPACITY 405 250 - 450 mcg/dL (calc) [facility] % SATURATION 3(L) 16 - 45 % (calc) [facility] Blood BLOOD SPECIMEN / Unknown 01/04/2024 4:00 PM WHOLESALE BUYER 01/04/2024 4:00 PM WHOLESALE BUYER Narrative [facility] - 01/05/2024 5:30 AM WHOLESALE BUYER FASTING:NO FASTING: NO us Chelsea Dye NP CHEMISTRY Final Result Performing Organization Address [facility] Co de Phone Number [facility] [address] [place] [address], [facility] [address] [place] [address] * RETICULOCYTES (01/04/2024 4:00 PM WHOLESALE BUYER) RETICULOCYTE COUNT, AUTOMATED 1.2 % [facility] RETICULOCYTE, ABSOLUTE 66,480 20,000 - 80,000 cells/uL [facility] Blood BLOOD SPECIMEN / Unknown 01/04/2024 4:00 PM WHOLESALE BUYER 01/04/2024 4:00 PM WHOLESALE BUYER Narrative [facility] - 01/05/2024 4:28 AM WHOLESALE BUYER FASTING:NO FASTING: NO us Chelsea Dye NP HEMATOLOGY Final Result [facility] [address] [place] [address], [facility] [address] [place] [address] * (ABNORMAL) CBC AND DIFFERENTIAL (01/04/2024 4:00 PM WHOLESALE BUYER) [facility] WHITE BLOOD CELL COUNT 8.6 3.8 - 10.8 Thousand/u L [facility] RED BLOOD CELL COUNT 5.54(H) 3.80 - 5.10 Million/uL [facility] HEMOGLOBIN 11.1(L) 11.7 - 15.5 g/dL [facility] HEMATOCRIT 38.6 35.0 - 45.0 % [facility] MCV 69.7(L) 80.0 - 100.0 fL [facility] MCH 20.0(L) 27.0 - 33.0 pg [facility] MCHC 28.8(L) 32.0 - 36.0 g/dL [facility] Comment: For adults, a slight decrease in the calculated MCHC value (in the range of 30 to 32 g/dL) is most likely not clinically significant; however, it should be interpreted with caution in correlation with other red cell parameters and the patient's clinical condition. RDW 17.0(H) 11.0 - 15.0 % [facility] PLATELET COUNT 427(H) 140 - 400 Thousand/u L [facility] MPV 9.7 7.5 - 12.5 fL [facility] ABSOLUTE NEUTROPHILS 4,051 1,500 - 7,800 cells/uL [facility] ABSOLUTE LYMPHOCYTES 3,621 850 - 3,900 cells/uL [facility] ABSOLUTE MONOCYTES 817 200 - 950 cells/uL [facility] ABSOLUTE EOSINOPHILS 77 15 - 500 cells/uL [facility] ABSOLUTE BASOPHILS 34 0 - 200 cells/uL [facility] NEUTROPHILS 47.1 % [facility] LYMPHOCYTES 42.1 % [facility] MONOCYTES 9.5 % [facility] EOSINOPHILS 0.9 % [facility] BASOPHILS 0.4 % [facility] CBC (INCLUDES DIFF/PLT) COMMENTS [facility] Comment: Review of peripheral smear confirms automated results. Blood BLOOD SPECIMEN / Unknown 01/04/2024 4:00 PM WHOLESALE BUYER 01/04/2024 4:00 PM WHOLESALE BUYER Narrative [facility] - 01/05/2024 4:28 AM WHOLESALE BUYER FASTING:NO FASTING: NO us Chelsea Dye NP HEMATOLOGY Final Result Performing Organization Address [facility]/ZIP Co de Phone Number [facility] [address] [place] [address], [place] [phone] [facility] [address] [place] [address] * (ABNORMAL) FERRITIN (01/04/2024 4:00 PM WHOLESALE BUYER) Pathologist [facility] FERRITIN 4(L) 16 - 288 ng/mL [facility] Blood BLOOD SPECIMEN / Unknown 01/04/2024 4:00 PM WHOLESALE BUYER 01/04/2024 4:00 PM WHOLESALE BUYER Narrative [facility] - 01/05/2024 4:12 AM WHOLESALE BUYER FASTING:NO FASTING: NO us Chelsea Dye NP CHEMISTRY Final Result [facility] [address] [place] [address], [place] [phone] [facility] [address] [place] [address] * BASIC METABOLIC PANEL (01/04/2024 4:00 PM WHOLESALE BUYER) GLUCOSE 99 65 - 139 mg/dL [facility] Comment: Non-fasting reference interval UREA NITROGEN (BUN) 14 7 - 25 mg/dL [facility] CREATININE 0.64 0.50 - 1.05 mg/dL [facility] EGFR 97 > OR = 60 mL/min/1. 73m2 [facility] BUN/CREATININE RATIO SEE NOTE: 6 - 22 (calc) [facility] Comment: Not Reported: BUN and Creatinine are within reference range. SODIUM 137 135 - 146 mmol/L [facility] POTASSIUM 4.3 3.5 - 5.3 mmol/L [facility] CHLORIDE 100 98 - 110 mmol/L [facility] CARBON DIOXIDE 29 20 - 32 mmol/L [facility] ELECTROLYTE BALANCE 8 7 - 17 mmol/L (calc) [facility] CALCIUM 9.5 8.6 - 10.4 mg/dL [facility] Blood BLOOD SPECIMEN / Unknown 01/04/2024 4:00 PM WHOLESALE BUYER 01/04/2024 4:00 PM WHOLESALE BUYER Narrative [facility] - 01/05/2024 5:30 AM WHOLESALE BUYER FASTING:NO FASTING: NO Chelsea Dye NP CHEMISTRY Final Result Performing Organization Address City/State/[facility] Co de Phone Number [facility] [address] [place] [address], [facility] [address] [place] [address] from Last 3 Months Insurance [facility] Care Teams [employer] Operator Relationship Specialty Start Date End Date Chelsea Dye NP [address] [place] [id number] PCP - General Nurse Practitioner - Family 01/09/24
[2024-03-03] MEDS: MORPHINE 4 MG/ML INJ IVP (18:59)
--- NOTE | 2024-03-03 19:10 | CRLHL7_ITS ---
For Patients: As a result of the Century Cures Act, medical imaging exams and procedure reports are released immediately into your electronic medical record. You may view this report before your referring provider. If you have questions, please contact your health care provider. INDICATION: PAIN IN LOWER CHEST, EPIGASTRUM, BLOOD IN STOOL TECHNIQUE: CT chest, abdomen and pelvis acquired with 62 milliliters of Isovue 370 IV contrast. COMPARISON: None. FINDINGS: CHEST: Cardiovascular structures: Heart size is normal. Thoracic aorta and main pulmonary artery are normal in caliber. Mediastinum and juliocesar: No mass or adenopathy. Moderate hiatal hernia. Lungs and pleura: Lungs and pleural spaces are clear. No suspicious nodules, infiltrates, or effusions. Chest wall and axilla: No mass or adenopathy. Bones: No suspicious bone lesions. Unremarkable for age. ABDOMEN AND PELVIS: Liver: Unremarkable. Gallbladder and bile ducts: Cholelithiasis without CT evidence of cholecystitis. Pancreas: Unremarkable. Spleen: Unremarkable. Adrenal glands: Unremarkable. Kidneys: Unremarkable. GI tract: Sigmoid diverticulosis without evidence of diverticulitis. Above average colonic stool volume. Appendix is within normal limits. No bowel obstruction. Moderate hiatal hernia. Vascular structures: Unremarkable. Lymph nodes: Unremarkable. Miscellaneous: Unremarkable. No free air or significant free fluid. Pelvic Organs: Unremarkable. Bones: No suspicious bone lesions. Unremarkable for age. IMPRESSION: 1. moderate hiatal hernia. Otherwise, no acute intra-abdominal process identified. 2. Cholelithiasis without CT evidence of cholecystitis. 3. Above average colonic stool volume, can be seen the setting of constipation. 4. Sigmoid diverticulosis without evidence of diverticulitis. Please note that all CT scans at this facility use dose modulation, iterative reconstruction, and/or weight-based dosing when appropriate to reduce radiation dose to as low as reasonably achievable. Dictated by Aminta Blair MD @ 03/03/2024 8:27:36 PM (Electronically Signed)
[2024-03-03 20:50] LABS: Hemoglobin* 8.7 gm/dL (12.0-16.0)
[2024-03-03 21:14] LABS: Fecal Occult Blood* Negative (Negative)
--- NOTE | 2024-03-03 23:18 | PC.NURSE ---
Pt asking for more food-sandwich. Primary RN said it was of. Also wanted some muscle milk. 2nd sandwich provided with a juice box.
[2024-03-03 23:38] LABS: Hemoglobin* 8.5 gm/dL (12.0-16.0)
== END 2024-03-04 00:23 | disposition home or self-care (01) ==
PROVIDERS: Emergency Provider Family Medicine
DX: D64.9 Anemia, unspecified (principal); Z87.19 Personal history of other diseases of the digestive system
CPT/HCPCS: 36415; 71260; 74177; 80053; 82270; 83605; 83735; 84484; 85018; 85025; 86850; 86900; 86901; 87631; 93005; 96361; 96374; 96375; 99284; 99285; J2270; J2405; J2470; J7030; Q9967

== ENCOUNTER 2024-08-14 08:10 | Outpatient (CLI) | payer MEDICARE, SELFPAY | END 2024-08-14 08:11 | disposition home or self-care (01) | LOC: AMB 08-16 08:43 | PROVIDERS: Visit Provider Emergency Medicine | DX: R42 Dizziness and giddiness (principal) | CPT/HCPCS: A0425; A0427 ==

== ENCOUNTER 2024-08-14 08:35 | Emergency (ER) | payer MEDICARE, SELFPAY ==
--- OUTSIDE RECORDS SUMMARY | 2015-04-22 10:50 | XMS_ITS | Continuity of Care Document ---
Author Organization [facility] Address [address] [place] [address] Phone Care Team Providers Care Analytics Analyst Name Role Phone Field Rudy OD, Sandra [...] Date Provider Providers Copied on Encounter [facility], [address] [place], [id number], [place] tel:[phone] [place] dilated exam (chief complaint) Age-related nuclear cataract, bilateralOther subjective visual disturbances 6 Field Rudy Flores. [address], [place], [place], [address] , . tel:[phone] Referring Provider: Sandramarlo Tena, [address], [place], [address] . tel:[phone] [facility] [place], [facility] [address] [place], [id number], tel:[phone] [place] Senile nuclear sclerosisDiplop iaConjunctiviti s, unspecified 4 Field Rudy Flores. [address], [place], [place], [address] , [place]. tel:[phone] Referring Provider: Sandra Tena, [address], [place], [address] . tel:[phone] [facility] [place], [address] [place] [address] [place], [id number], tel:[phone] [place] Senile nuclear sclerosisConjun ctivitis, unspecified 1 Field Rudy Flores. [address], [place], [place], [address] , . tel:[phone] [facility] [place], [address] [place] [address] [place], [id number], tel:[phone] [place] Foreign body in conjunctival sac 0200 9 Field Rudy Flores. [address], [place], [place], [address] , . tel:[phone] Family History Family Member Type Diagnosis Age At Onset Father Problem (finding) degenerative disorder o f macula Multiple Problem (finding) heart problems Problem (finding) cancer Multiple Problem (finding) mental problmes Payers Payer name Insurance type Covered green party ID Mehul canales(s) [employer] CI [id number] [facility] Health Choice [id number] Pa per Referral Social History Type Description [...]
--- OUTSIDE RECORDS SUMMARY | 2024-08-14 08:38 | XMS_ITS | Clinical Summary ---
Author Organization [employer] [facility] Address [address] [place] [id number] Care Team Providers Care Tumbling Instructor Name Role Phone Chelsea Dye NP Primary Care Provider [phone] Nancy Lucero CARDIO CLINICIAN Unavailable Allergies Active Allergy Reactions Criticality Noted Date Comments Copper Rash,Fever 01/04/2024 Medications pantoprazole (PROTONIX) 40 mg delayed-release tabletIndications: Esophagitis determined by endoscopy Take 1 Tablet (40 mg) by mouth two times daily before meals. 180 Tablet 3 03/27/19 25 Active levothyroxine (SYNTHROID) 50 mcg tabletIndications: Acquired hypothyroidism Take 1 Tablet (50 mcg) by mouth once daily. 90 Tablet 2 03/27/19 25 Active aluminum-magnesium hydroxide-simethic one (MAALOX PLUS) 200-200-20 mg/5 mL suspensionIndicati ons:Gastroesophage al reflux disease, unspecified whether esophagitis present Take 15 mL by mouth 4 times daily if needed for GI Upset. Shake Well. 355 mL 5 9:01 PM CDT 05/11/19 25 Active ondansetron (ZOFRAN ODT) 4 mg disintegrating tabletIndications: Nausea and vomiting, unspecified vomiting type,Gastroesophag eal reflux disease, unspecified whether esophagitis present Place 1 Tablet (4 mg) on the tongue every 8 hours if needed for Nausea/Vomitin g. 15 Tablet 05/11/19 25 Active sucralfate (CARAFATE) 100 mg/mL suspensionIndicati ons:Esophagitis determined by endoscopy Take 10 mL (1,000 mg) by mouth three times daily before meals. Take on empty stomach. 420 mL 05/13/19 25 Active magic mouthwash 1:1:1 (diphen 12.5mg/5mL-lidocai ne 2%-maalox 449-782-26gv/5ml) (AMB MIX)Indications:Ca nker sore Swish and spit 5-10 mL by mouth 4 times daily if needed for Mouth Sores. 240 mL 07/23/19 25 Active sennosides 8.6 mg tabletIndications: Constipation, unspecified constipation type Take 2 Tablets (17.2 mg) by mouth once daily if needed for Constipation. 180 Tablet 1 07/26/19 25 Active srfdi-7-scm-epa-dp a-fish oil 1,050-1,200 mg cap capsule Take 1 Capsule by mouth once daily. 07/26/19 25 Active zinc gluconate 50 mg tablet Take 1 Tablet (50 mg) by mouth once daily. 07/26/19 25 Active cyanocobalamin (Vitamin B-12) 1,000 mcg tablet Take 1 Tablet (1,000 mcg) by mouth once daily. 07/26/19 25 Active Coenzyme Q10 10 mg cap Take 1 Capsule (10 mg) by mouth once daily. 07/26/19 25 Active sodium chloride 0.65 % nasal solutionIndication s:Stuffy nose Inhale 2 Sprays in both nostrils every hour if needed for Nasal Dryness or Nasal Congestion. 45 mL 1 07/26/19 25 Active carboxymethylcellu lose 0.5% (Refresh Tears) 0.5 % drop ophthalmic dropsIndications:D ry eye of left side,Dry eye of right side Place 1-2 Drops into both eyes every 2 hours if needed for Dry Eyes (dry itchy eyes). 30 mL 1 07/26/19 25 Active QUEtiapine 25 mg tabletIndications: Generalized anxiety disorder with panic attacks,Moderate episode of recurrent major depressive disorder (HC),Insomnia, unspecified type Take 1 tablet -25 mg -by mouth in the morning and take 2 tabs -50 mg at bedtime 90 Tablet 1 08/02/19 25 Active PARoxetine 30 mg tabletIndications: Generalized anxiety disorder with panic attacks,Moderate episode of recurrent major depressive disorder (HC) Take 1 Tablet (30 mg) by mouth once daily in the morning. 30 Tablet 1 08/02/19 25 Active busPIRone 15 mg tabletIndications: Generalized anxiety disorder with panic attacks Take 1 Tablet (15 mg) by mouth two times daily. 60 Tablet 1 08/15/19 25 Active polyethylene glycoL (MIRALAX) 17 gram/scoop powderIndications: Constipation, unspecified constipation type Take 1 scoop (17 g) in 8oz liquid by mouth or nasogastric tube once daily if needed for Constipation. 510 g 5 1:54 PM ACCOUNT RESOLUTION ANALYST 03/19/19 25 025 Discontinu ed(Duplica te therapy (E-cancel not sent)) sennosides (SENNA) 8.6 mg tabletIndications: Constipation, unspecified constipation type Take 2 Tablets (17.2 mg) by mouth 2 times daily if needed for Constipation. 60 Tablet 5 1:54 PM ACCOUNT RESOLUTION ANALYST 03/19/19 25 025 Discontinu ed(Reorder (E-cancel not sent)) bjysr-2-qof-epa-dp a-fish oil (FISH OIL) 1,050-1,200 mg cap capsule Take 1 Capsule by mouth once daily. 025 Discontinu ed(Reorder (E-cancel not sent)) cyanocobalamin (Vitamin B-12) 1,000 mcg tablet Take 1,000 mcg by mouth once daily. 025 Discontinu ed(Reorder (E-cancel not sent)) aluminum-magnesium hydroxide-simethic one (MAALOX PLUS) 200-200-20 mg/5 mL suspensionIndicati ons:Nausea and vomiting, unspecified vomiting type,Gastroesophag eal reflux disease, unspecified whether esophagitis present Take 15 mL by mouth 4 times daily if needed for GI Upset. Shake Well. 355 mL 05/11/19 25 025 Discontinu ed(Duplica te therapy (E-cancel not sent)) polyethylene glycoL (MIRALAX) 17 gram/scoop powderIndications: Nausea and vomiting, unspecified vomiting type Mix 1 capful (17 Gm) in liquid then take by mouth once daily. 510 g 5 9:01 PM CDT 05/11/19 Discontinu ed(*Med complete/R egimen complete/L evel of care change) zinc gluconate 50 mg tablet Take 50 mg by mouth once daily. Discontinu ed(Reorder (E-cancel not sent)) diphenhydrAMINE (ZzzQuiL) 50 mg/30 mL oral liquid Take 50 mg by mouth at bedtime if needed. Discontinu ed(*IP Discontinu ed) busPIRone 30 mg tabletIndications: Anxiety Take 1 Tablet (30 mg) by mouth two times daily. 180 Tablet 06/09/19 Discontinu ed(*IP Discontinu ed) metoprolol succinate 50 mg sustained-release tabletIndications: SVT (supraventricular tachycardia) (HC) Take 1 Tablet (50 mg) by mouth once daily. 90 Tablet 2 06/13/19 Discontinu ed(*IP Discontinu ed) PARoxetine 30 mg tabletIndications: Generalized anxiety disorder with panic attacks,Moderate episode of recurrent major depressive disorder (HC) Take 1 Tablet (30 mg) by mouth once daily in the morning. 30 Tablet 1 06/30/19 25 Discontinu ed(Reorder (E-cancel not sent)) nortriptyline 10 mg capsuleIndications :Generalized anxiety disorder with panic attacks,Insomnia, unspecified type Take 1 Capsule (10 mg) by mouth at bedtime. 30 Capsule 1 06/30/19 Discontinu ed(*IP Discontinu ed) hydrOXYzine HCL 10 mg tabletIndications: Anxiety Take 1 Tablet (10 mg) by mouth every 6 hours if needed for Anxiety. 20 Tablet 07/21/19 25 Discontinu ed(*Med complete/R egimen complete/L evel of care change) QUEtiapine 25 mg tabletIndications: Bipolar affective disorder, remission status unspecified (HC),Moderate cognitive impairment,Polypha rmacy,Acute encephalopathy 12.5 mg by mouth twice daily as needed for anxiety and 50 mg at bedtime for sleep. 30 Tablet 07/21/19 25 Discontinu ed(Reorder (E-cancel not sent)) escitalopram oxalate 20 mg tablet Take 1 Tablet by mouth once daily. 07/05/19 Discontinu ed(*Med complete/R egimen complete/L evel of care change) amoxicillin 500 mg tabletIndications: Canker sore Take 1 Tablet (500 mg) by mouth two times daily for 7 days. 14 Tablet 07/23/19 sodium chloride 0.65 % nasal solutionIndication s:Stuffy nose Inhale 2 Sprays in both nostrils every 2 hours. 45 mL 11 07/23/19 25 Discontinu ed(Reorder (E-cancel not sent)) QUEtiapine 25 mg tabletIndications: Bipolar affective disorder, remission status unspecified (HC),Moderate cognitive impairment,Polypha rmacy,Acute encephalopathy 25 mg by mouth in the morning and 50 mg at bedtime 30 Tablet 07/26/19 Discontinu ed(Reorder (E-cancel not sent)) Active Problems Problem Noted Date Diagnosed Date Moderate cognitive impairment 07/18/2024 Polypharmacy 07/18/2024 Bipolar disorder 07/18/2024 Overview (07/18/2024): AI Summary: As of 07/18/24: The patient has a history of bipolar affective disorder, mentioned in remission on multiple occasions from 09/15/2023 to 07/18/2024. The patient was prescribed escitalopram oxalate (LEXAPRO) 20 mg tablet for bipolar affective disorder in remission on 03/27/2024. The patient also has a history of anxiety and major depressive disorder, with medications including buspirone, escitalopram, and gabapentin mentioned in the context of home medications. 07/17/24: TSH 1.94 uIU/mL Recent encounter dx: 03/27/24: Support OP Encounter - [facility] 03/27/24: Appointment - [facility] 01/04/24: Appointment - [facility] 09/15/23: Hospital Encounter - Med/Surg, [facility] S[facility] 4 Oncology (from [facility]) Recent notes: 07/18/24: Consults - [facility] Telepsychiatry Consult Note by Keyon Sullivan, DO ... [+] ? Bipolar depression (HC) 07/18/24: Initial Assessments - SPEECH LANGUAGE PATHOLOGY EVALUATION by Aye Weeks, MIKE ... [-] ? Bipolar depression (HC) 05/12/24: H&P - Preoperative Consultation by Mary Nelson MD ... [+] Мария Miller is a 69 y.o. female with known HTN, hypothyroidism, afib CHADsVASC of 3, hiatal hernia, upper GI bleed, esophagitis, bipolar depression ... [+] ? Bipolar affective disorder in remission (HC) F31.70 05/10/24: ED Provider Note by Tha Chakraborty MD ... [+] Bipolar affective disorder in remission (HC) 05/09/24: Progress Notes by Sindi Prasad MD ... [+] ? Bipolar affective disorder in remission (HC) 09/15/2023 Depression 07/17/2024 Acute encephalopathy 07/17/2024 UTI (urinary tract infection) 07/17/2024 Gastroesophageal reflux dise ase with esophagitis and hemorrhage 05/23/2024 Esophagitis 04/01/2024 Acute on chronic anemia 03/17/2024 Anxiety 01/04/2024 Hiatal hernia 01/04/2024 Iron deficiency anemia 01/04/2024 Major depressive disorder with current active ep isode 01/04/2024 HTN (hypertension) 01/04/2024 Paroxysmal atrial fibrillation 01/04/2024 Esophageal stricture 01/04/2024 History of repair of hiatal hernia 01/04/2024 Upper GI bleed 09/15/2023 Acquired hypothyroidism 09/15/2023 Resolved Problems Problem Noted Date Diagnosed Date Resolved Date Lactic acidosis 09/15/2023 03/28/2024 Encounters Date Type Department Care Team Description 08/14/2024 7:30 AM CDT Office Visit [facility] [address] [place] [address] Lily Silva NP Medication Management (Very tired/Mood is good, anxiety is good, sleep is good/Hospital took her off Buspar approx 1.5 month ago) 08/14/2024 Travel 08/07/2024 Telephone [facility] [address] [place] [address] Lily Silva NP Concerns (Tired/) 08/07/2024 Telephone [facility] [address] [place] [address] Netta Dawson MD Error-please disregard 08/01/2024 2:00 PM CDT Office Visit [facility] [address] [place] [address] Lily Silva NP Medication Management (F/u hospital stay in [place], nortiptyline stopped, buspar was stopped, /Was put on seroquel, has really helped anxiety, would like buspar back for energy) 08/01/2024 Travel 07/26/[address] [phone] Chelsea Dye NP Results 07/25/2024 2:20 PM CDT Office Visit [address] [phone] Chelsea Dye NP Medicare ANNUAL (subsequent) Visit (Psychiatrist is requesting an EKG.); Hospital F/U (Fell last Wednesday, broke nose, concussion, in pain 8/10 on pain scale. Has been taking a large amount of Aleve (16-20 tablets a day). Has been having migraines headaches since.); Immunization/Injectio n 07/25/2024 Orders Only [address] [phone] Chelsea Dye NP <No scans attached> 07/25/2024 Travel 07/22/2024 12:40 PM CDT Office Visit [facility] [address] [place] [phone] Emily Ayala NP Palpitations 07/22/2024 Travel 07/21/2024 Patient Outreach [address] [phone] Chayo Squires, RN Primary RN Care Management (Hospital DC: 07/20/24/LACE: 64/Acute Encephalopathy ); Hospital F/U 07/17/2024 7:18 PM CDT - 07/20/2024 11:14 AM CDT Hospital Encounter [facility] [address] [facility] [address] Jordan Hernandez, Hospitalist, Wilfredo Galo Md, MD Drevlow, Kris Wempen, DO Altered mental status, unspecified altered mental status type (Primary Dx); Hypomagnesemia; Hypokalemia; Urinary tract infection without hematuria, site unspecified; Bipolar affective disorder, remission status unspecified (HC); Moderate cognitive impairment; Polypharmacy; Acute encephalopathy; Anxiety Discharge Disposition: Home Self Care 07/17/2024 Travel 07/03/[address] [address] Lily Silva NP Follow Up 06/29/2024 1:00 PM CDT Office Visit [facility] [address] [place] [address] Lily Silva NP Medication Management ( would like something to help anxiety and sleep); Follow Up 06/29/2024 Travel 06/18/[address] [phone] Chelsea Dye NP Medicare ANNUAL (subsequent) Visit 06/16/2024 Telephone [facility] [address] [place] [address] Lily Silva NP Questions 06/09/2024 Telephone [facility] [address] [place] [address] Lily Silva NP Questions 06/08/2024 Telephone [facility] [address] [place] [address] Lily Silva NP Follow Up 06/08/2024 Telephone [facility] [address] [place] [address] Lily Silva NP Appointment 06/05/2024 3:06 PM CDT - 06/05/2024 11:59 PM CDT Hospital Encounter [facility] [address] [place] [address] Iron deficiency anemia, unspecified iron deficiency anemia type [D50.9] 06/05/2024 2:45 PM CDT Office Visit [facility] [address] [place] [phone] Nancy Lucero, CARDIO CLINICIAN Follow Up (Iron deficiency anemia) 06/05/2024 Travel 06/02/2024 Telephone [facility] [address] [place] [address] Nancy Lucero, CARDIO CLINICIAN Appointment 06/01/2024 Telephone [place] [phone] [place] [address] Sb Concepcion MD Medication Management 06/01/2024 Telephone [facility] [address] [place] [address] Lily Silva NP Questions 05/29/2024 Telephone [facility] [address] [place] [phone] Nancy Lucero CARDIO CLINICIAN Appointment 05/26/2024 Telephone [facility] [address] [place] [address] Care Coordination- Post-op Call 05/25/2024 Phone Office Visit [facility] [address] [place] [address] Chelo Reinoso NP Surgical Followup 05/25/2024 Telephone [facility] [address] [place] [address] Chelo Reinoso NP 05/25/2024 Telephone [facility] [address] [place] [address] Chelo Reinoso NP Post-op 05/24/2024 Telephone [facility] [address] [place] [address] Nhung Rey MD Refill Request 05/23/2024 8:03 AM CDT Anesthesia Event [facility] [address] [place] [address] Nate Erickson MD Forbes, Fiona B, CLINICAL TRIALS MANAGER Student 05/23/2024 7:30 AM CDT - 05/23/2024 11:06 AM CDT Surgery [facility] [address] [place] [address] Nhung Rey MD Robotic assisted hiatal hernia repair, Toupet fundoplication, esophagopexy, upper endoscopy 05/23/2024 5:27 AM CDT - 05/23/2024 2:35 PM CDT Hospital Encounter [facility] [address] [place] [address] Nhung Rey MD Esophagitis (Primary Dx); Gastroesophageal reflux disease with esophagitis and hemorrhage Discharge Disposition: Home Self Care 05/22/2024 Travel 05/18/2024 9:00 AM CDT Office Visit [facility] [address] [place] [address] Lily Silva NP Mental Health Intake (lots of loss recently, mom and dad, brother, . lost home. all in the past 5 years or so.) 05/18/2024 Travel 05/16/2024 11:00 AM CDT Office Visit [facility] at [address] [address] Sb Concepcion MD Establish Care (July 23 [facility]- surgery) 05/16/[address] [place] [address] Sb Concepcion MD Medication Management 05/16/2024 Orders Only [facility] [address] [place] [phone] Mary Nelson MD 1 scan: (1-Ord) 05/12/2024 05/16/2024 Telephone [facility] - [address] [address] Nancy Lucero NP Appointment from Last 3 Months Immunizations Immunization Administration Dates Next Due Pneumococcal Conj 20-valent (Prevnar 20) 025 Family History Medical History Relation Name Comments Heart attack Brother Congenital heart disease Father Hypertension Father Arthritis Mother Cancer-breast Mother Cancer-ovarian Mother Cancer-breast Paternal Grandmother Relation Name Status Comments Brother Father Mother Paternal Grandmother Social History Tobacco Use Types Packs/Day Years Used Date Smoking Tobacco: Never Smokeless Tobacco: Never Tobacco Cessation:Counseling Given: Not Answered Alcohol Use Standard Drinks/Week Comments Not Currently 0 (1 standard drink = 0.6 oz pur e alcohol) PHQ-2 Answer Date Recorded PHQ-2 TOTAL SCORE 3 08/14/2024 Social Connections Answer Date Recorded Do you often feel lonely or isolated from those around you? 0 07/18/2024 Financial Resource Strain Answer Date R ecorded Difficulty of Paying Living Expenses 3 01/04/2024 Difficulty of Paying Living Expenses Not on file 01/04/2024 Food Insecurity Answer Date Recorded Do you worry your food will run out before you are able to buy more? 1 07/18/2024 Transportation Needs Answer Date Record ed Does lack of transportation keep you from medica l appointments? 1 07/18/2024 Does lack of transportation keep you from work, meetings or getting things that you need? 1 07/18/2024 Housing Stability Answer Date Recorded What is your housing situation today? 1 07/18/2024 Interpersonal Safety Answer Date Record ed Are you being hit, kicked, p ushed or yelled at (see row info)? No 07/18/2024 Interpersonal Safety Abuse 12 - 18 Not on file 07/18/2024 Interpersonal Safety Ambulatory Vulnerability No t on file 07/18/2024 Utilities Answer Date Recorded Do you have trouble paying f or utilities (for example, heat, electricity, water, phone)? 1 07/18/2024 Comments No Sex and Gender Information Value Date Recorded Sex Assigned at Female 03/14/2024 1:48 PM ACCOUNT RESOLUTION ANALYST Legal Sex Female 1:31 PM CDT Gender Identity Female 03/14/2024 1:48 PM ACCOUNT RESOLUTION ANALYST Sexual Orientation Straight 05/06/2024 5: 03 PM ACCOUNT RESOLUTION ANALYST Occupation Industry Job Start Date Job End Date Not on file Not on file Not on file Not on file Obstetrics History Last Filed Vital Signs Vital Sign Reading Time Taken Comments Blood Pressure 104/65 08/14/2024 8:02 AM CDT Pulse 46 08/14/2024 8:27 AM CDT Temperature 36.8 C (98.3 F) 07/22/2024 12:56 PM CDT Respiratory Rate 14 07/22/2024 12:56 PM CDT Oxygen Saturation 98% 07/25/2024 2:48 PM CDT Inhaled Oxygen Concentration - - Weight 64.5 kg (142 lb 4.8 oz) 08/14/2024 7:30 A M CDT Height 167.6 cm (5' 6) 07/25/2024 2:48 PM CDT Body Mass Index 22.97 07/25/2024 2:48 PM CDT Plan of Treatment Upcoming Encounters Date Type Department Care Team (Late st Contact Info) Description 09/18/2024 2:30 PM CDT Appointment [facility] [address] [place] [address] 09/19/2024 2:00 PM CDT Office Visit [facility] [address] [place] [address] Lily Silva NP [address] [place] [address] 09/20/2024 3:15 PM CDT Office Visit [facility] [address] [place] [phone] Nancy Lucero, CARDIO CLINICIAN [address] [place] [address] Health Maintenance Due Date Last Done Comments Tdap 01/14/1967 Tetanus booster 1976 Colonoscopy through age 75 01/14/2001 Zoster (shingles) series for age 50+ (1 of 2) 01/14/2006 RSV vaccine for adults or (1 - Risk 60-74 years 1-dose series) 2016 DEXA/DXA scan for age 65+ 01/14/2021 COVID-19 vaccine series ( season) 2023 Influenza Vaccine (Season Ended) 2024 BMI (ht and wt on same day) for age 18+ 07/25/2025 07/25/2024, 05/18/2024, 04/13/2024, Additional history exists Medicare Wellness for age 65+ 07/26/2025 07/25/2024 Depression screening for age 12+ 08/14/2025 08/14/2024, 08/01/2024, 07/25/2024, Additional history exists Lipids for age 45-75 07/25/2029 07/25/2024 Hepatitis C screening for age 18-79 Completed 07/25/2024 Pneumococcal series for age 50+ Completed 07/25/2024 Hepatitis B series for 19+ Aged Out N o longer eligible based on patient's age to complete this topic Mammogram for age 45-75 Discontinued Procedures Procedure Name Priority Date/Time Associated Diagnosis Comments LIPID PANEL W REFLEX MEASURED LDL Routine 07/25/2024 4:01 PM CDT Screening for cardiovascular condition MAGNESIUM Routine 07/25/2024 4:01 PM CDT Hypomagnesemia HEMOGLOBIN A1C Routine 07/25/2024 4:01 PM CDT Encounter for medication monitoring Other trimming press operator (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) drug therapy ANTI HCV Routine 07/25/2024 4:01 PM CDT Encounter for hepatitis C screening test for low risk patient URINALYSIS MICROSCOPIC STAT 1:29 PM CDT UTI symptoms URINE CULTURE Routine 07/22/2024 1:29 PM CDT UTI symptoms UA W/ SEDIMENT EXAM REFLEXED PER CRITERIA STAT 07/22/2024 1:29 PM CDT UTI symptoms WHITE BLOOD COUNT Early AM 07/20/2024 5:2 7 AM CDT MAGNESIUM Early AM 07/20/2024 5:27 AM CDT POTASSIUM Early AM 07/20/2024 5:[address] HEAD BRAIN WO STAT 07/19/2024 1:[address] FACIAL BONES WO STAT 07/19/2024 1: 55 PM CDT POTASSIUM Early AM 07/19/2024 4:59 AM CDT MAGNESIUM Early AM 07/19/2024 4:59 AM CDT C-REACTIVE PROTEIN STAT 07/18/2024 1: 04 PM CDT BLOOD GAS,VENOUS STAT 07/18/2024 1:04 PM CDT PROCALCITONIN STAT 07/18/2024 1:04 PM CDT AMMONIA STAT 07/18/2024 1:04 PM CDT POTASSIUM STAT 07/18/2024 1:04 PM CDT MAGNESIUM Early AM 07/18/2024 5:45 AM CDT MAGNESIUM Timed 07/18/2024 12:37 AM CDT POTASSIUM STAT 07/18/2024 12:37 AM CDT GLUCOSE METER Routine 07/18/2024 12:[address] CHEST ABDOMEN PELVIS W STAT 07/17/2024 9:[address] SPINE CERVICAL WO STAT 07/17/2024 9:[address] HEAD BRAIN WO STAT 07/17/2024 9:05 PM CDT BLOOD CULTURE STAT 07/17/2024 9:03 PM CDT BLOOD CULTURE STAT 07/17/2024 8:00 PM CDT LACTATE VENOUS STAT 07/17/2024 8:00 PM CDT URINE CULTURE TAYLOR 07/17/2024 7:44 PM CDT DRUG SCREEN RAPID URINE INHOUSE STAT 07/17/2024 7:44 PM CDT URINALYSIS MICROSCOPIC STAT 7:43 PM CDT UA W/ SEDIMENT EXAM REFLEXED PER CRITERIA STAT 07/17/2024 7:43 PM CDT EKG 12 LEAD STAT 07/17/2024 7:28 PM CDT CBC WITH AUTO DIFFERENTIAL STAT 07/17/2024 7:26 PM CDT ETHANOL SERUM OR PLASMA STAT 07/18/19 7:26 PM CDT T4,FREE STAT 07/17/2024 7:26 PM CDT TSH STAT 07/17/2024 7:26 PM CDT MAGNESIUM STAT 07/17/2024 7:26 PM CDT COMP METABOLIC PANEL STAT 07/17/2024 7:26 PM CDT CBC WITH AUTO DIFFERENTIAL STAT 07/17/2024 7:26 PM CDT CBC WITH AUTO DIFFERENTIAL Timed 06/05/2024 3:15 PM CDT Iron deficiency anemia, unspecified iron deficiency anemia type [D50.9] IRON PLUS IRON BINDING CAP Today 06/05/2024 3:15 PM CDT Iron deficiency anemia, unspecified iron deficiency anemia type [D50.9] FERRITIN Today 06/05/2024 3:15 PM CDT Iron deficiency anemia, unspecified iron deficiency anemia type [D50.9] CBC WITH AUTO DIFFERENTIAL Today 06/05/2024 3:15 PM CDT Iron deficiency anemia, unspecified iron deficiency anemia type [D50.9] ENDOTRACHEAL TUBE Routine 05/23/2024 8:2 1 AM CDT ENDOSCOPY Tier 3 05/23/2024 7:30 AM CDT Upper GI bleed ROBOTIC ASSISTED PARAESOPHAGEAL HIATAL HERNIORRHAPHY XI Tier 3 05/23/2024 7:30 AM CDT Upper GI bleed OR IMAGE CAPTURE Routine 05/23/2024 7:07 AM CDT SCAN-CARDIAC STRIP 05/23/2024 12 :00 AM CDT AMB CONSULT TO GASTROENTEROLOGY Routine 05/18/2024 7:34 PM CDT Hiatal hernia Anemia, unspecified type Esophagitis Gastroesophageal reflux disease with esophagitis, unspecified whether hemorrhage from Last 3 Months Results * HEMOGLOBIN A1C (07/25/2024 4:01 PM CDT) HEMOGLOBIN A1C 5.6 <5.7 % [facility] Wiseman Comment: For the purpose of screening for the presence of diabetes: <5.7% Consistent with the absence of diabetes 5.7-6.4% Consistent with increased risk for diabetes (prediabetes) > or =6.5% Consistent with diabetes This assay result is consistent with a decreased risk of diabetes. Currently, no consensus exists regarding use of hemoglobin A1c for diagnosis of diabetes in children. According to [place] [employer] (ADA) guidelines, hemoglobin A1c <7.0% represents optimal control in non- diabetic patients. Different metrics may apply to specific patient populations. Standards of Medical Care in Diabetes(ADA). Blood BLOOD SPECIMEN / Unknown 07/25/2024 4:01 PM CDT 07/25/2024 4:01 PM CDT Narrative [facility] - 07/26/2024 4:18 AM CDT FASTING:NO FASTING: NO Chelsea Dye NP CHEMISTRY Final Result [employer] [facility] [address] [place] [address], [facility] [address] [place] [address] * (ABNORMAL) LIPID PANEL W REFLEX MEASURED LDL [[id number]] (07/25/2024 4:01 PM CDT) [facility] CHOLESTEROL, TOTAL 250(H) <200 mg/dL [facility] HDL CHOLESTEROL 60 > OR = 50 mg/dL [facility] TRIGLYCERIDES 187(H) <150 mg/dL [facility] LDL-CHOLESTEROL 156(H) mg/dL (calc) [facility] Comment: Reference range: <100 Desirable range <100 mg/dL for primary prevention; <70 mg/dL for patients with CHD or diabetic patients with > or = 2 CHD risk factors. LDL-C is now calculated using the Jeane calculation, which is a validated novel method providing better accuracy than the Friedewald equation in the estimation of LDL-C. Didier SS et al. TATYANA. 2013;310(19): 5709-4107 (http://education.[employer]faq/XRL812) CHOL/HDLC RATIO 4.2 <5.0 (calc) [facility] NON HDL CHOLESTEROL 190(H) <130 mg/dL (calc) [facility] Comment: For patients with diabetes plus 1 major ASCVD risk factor, treating to a non-HDL-C goal of <100 mg/dL (LDL-C of <70 mg/dL) is considered a therapeutic option. Blood BLOOD SPECIMEN / Unknown 07/25/2024 4:01 PM CDT 07/25/2024 4:01 PM CDT Narrative [facility] - 07/26/2024 4:49 AM CDT FASTING:NO FASTING: NO Chelsea Dye NP CHEMISTRY Final Result Performing Organization Address [facility] Co de Phone Number [employer] [facility] [address] [place] [address], [facility] [address] [place] [address] * ANTI HCV (07/25/2024 4:01 PM CDT) HEPATITIS C ANTIBODY NON-REACTI VE NON-REACT JUNIOR [facility] Comment: HCV antibody was non-reactive. There is no laboratory evidence of HCV infection. In most cases, no further action is required. However, if recent HCV exposure is suspected, a test for HCV RNA (test code 94918) is suggested. For additional information please refer to http://education.broadbandchoices/faq/MAI65l2 (This link is being provided for informational/ educational purposes only.) Blood BLOOD SPECIMEN / Unknown 07/25/2024 4:01 PM CDT 07/25/2024 4:01 PM CDT Narrative [facility] - 07/26/2024 12:40 PM CDT FASTING:NO FASTING: NO Chelsea Dye NP SEND OUTS Final Result Performing Organization Address [facility] de Phone Number [employer] [facility] [address] [place] [address], [facility] [address] [place] [address] * MAGNESIUM (07/25/2024 4:01 PM CDT) Only the most recent of6 resultswithin the time period is included. Pathologist [facility] MAGNESIUM 1.8 1.5 - 2.5 mg/dL [facility] Blood BLOOD SPECIMEN / Unknown 07/25/2024 4:01 PM CDT 07/25/2024 4:01 PM CDT Narrative [facility] - 07/26/2024 4:49 AM CDT FASTING:NO FASTING: NO Chelsea Lorenzahue CARDIO CLINICIAN CHEMISTRY Final Result [facility] [address] [place] [address], [place] [phone] [facility] [address] [place] [address] * URINALYSIS MICROSCOPIC (07/22/2024 1:29 PM CDT) Only the most recent of2 resultswithin the time period is included. RBC 0-2 0-2, None Seen /HPF 07/22/2024 1:46 PM CDT [facility] WBC 0-2 0-2, 3-5, None Seen /HPF 07/22/2024 1:46 PM CDT [facility] BACTERIA Rare None Seen, Rare, Few Bacteria/H PF 07/22/2024 1:46 PM CDT [facility] EPITHELIAL CELLS Few None Seen, Few Epi/HPF 07/22/2024 1:46 PM CDT [facility] Urine URINE SPECIMEN / Unknown Non-Blood / Unknown 07/22/2024 1:29 PM CDT 07/22/2024 1:33 PM CDT Emily Netimoteo Radha Casillas CARDIO CLINICIAN URINE Final Resu lt [facility] [address] [place] [address] * URINE CULTURE [11635.2] - routine (07/22/2024 1:29 PM CDT) Only the most recent of2 resultswithin the time period is included. CULTURE <10,000 CFU/mL multiple organisms 07/23/2024 7:19 PM CDT [facility] Urine URINE SPECIMEN / Unknown Non-Blood / Unknown 07/22/2024 1:29 PM CDT 07/22/2024 1:33 PM CDT Emily Casillas CARDIO CLINICIAN MICROBIOLOGY Final Resu lt [facility] [address] [place] [address], [place] * (ABNORMAL) UA W/ SEDIMENT EXAM REFLEXED PER CRITERIA [57125.2] - STAT (07/22/2024 1:29 PM CDT) Only the most recent of2 resultswithin the time period is included. COLOR Yellow Yellow Color 07/22/2024 1:42 PM [facility] CLARITY Clear Clear Clarity 07/22/2024 1:42 PM [facility] SPECIFIC GRAVITY,URINE 1.015 1.010, 1.015, 1.020, 1.025 07/22/2024 1:42 PM [facility] PH,URINE 8.5 6.0, 7.0, 8.0, 5.5, 6.5, 7.5, 8.5 07/22/2024 1:42 PM [facility] UROBILINOGEN, QUALITATIVE Normal Normal EU/dl 07/22/2024 1:42 PM [facility] PROTEIN, URINE Trace(A) Negative mg/dL 07/22/2024 1:42 PM [facility] GLUCOSE, URINE Negative Negative mg/dL 07/22/2024 1:42 PM [facility] KETONES,URINE Negative Negative mg/dL 07/22/2024 1:42 PM [facility] BILIRUBIN,URI NE Negative Negative 07/22/2024 1:42 PM [facility] OCCULT BLOOD,URINE Negative Negative 07/22/2024 1:42 PM [facility] NITRITE Negative Negative 07/22/2024 1:42 PM [facility] LEUKOCYTE ESTERASE Small(A) Negative 07/22/2024 1:42 PM [facility] Urine URINE SPECIMEN / Unknown Non-Blood / Unknown 07/22/2024 1:29 PM CDT 07/22/2024 1:33 PM CDT Emily Alcocer Radha Vinny CARDIO CLINICIAN URINE Final Resu lt Performing Organization Address [facility] Co de Phone Number [facility] [address] [place] [address] * (ABNORMAL) WHITE BLOOD COUNT (07/20/2024 5:27 AM CDT) WHITE BLOOD COUNT 3.6(L) 4.5 - 11.0 thou/cu mm 07/20/2024 6:[address] [facility] Blood BLOOD SPECIMEN / Unknown Venipuncture / Unknown 07/20/2024 5:27 AM CDT 07/20/2024 6:06 AM CDT Deshawn Paredes DO HEMATOLOGY Final Res ult Performing Organization Address [facility] Co de Phone Number [facility] [address] [address] * POTASSIUM (07/20/2024 5:27 AM CDT) Only the most recent of4 resultswithin the time period is included. POTASSIUM 4.5 3.5 - 5.1 mmol/L 07/20/2024 6:[address] [facility] Blood BLOOD SPECIMEN / Unknown Venipuncture / Unknown 07/20/2024 5:27 AM CDT 07/20/2024 6:05 AM CDT Deshawn Quirosvsherie DO CHEMISTRY Final Res ult Performing Organization Address [facility] Co de Phone Number [facility] [address] [address] * CT HEAD BRAIN WO (07/19/2024 1:55 PM CDT) Only the most recent of2 resultswithin the time period is included. Anatomical Region Laterality Modality HEAD, BRAIN Computed Tomogra phy Deshawn Wempen Drevlow DO CT Final Res ult * CT FACIAL BONES WO (07/19/2024 1:55 PM CDT) Anatomical Region Laterality Modality FACIAL BONES Computed Tomogra phy us Deshawn Wempen Drevlow DO CT Final Res ult * PROCALCITONIN (07/18/2024 1:04 PM CDT) PROCALCITONIN 0.06 ng/ml 07/18/2024 1:[address] [facility] Blood BLOOD SPECIMEN / Unknown Venipuncture / Unknown 07/18/2024 1:04 PM CDT 07/18/2024 1:15 PM CDT [facility] - 07/18/2024 1:51 PM CDT Procalcitonin for initial assessment of Lower Respiratory Tract Infection: Results Interpretation <0.10 ng/mL Antibiotic therapy strongly discoraged. Indicates absent of bacterial infection. * 0.10 - 0.25 ng/mL Antibiotic therapy discouraged. Bacterial infection unlikely. * 0.26 - 0.50 ng/mL Antibiotic therapy encouraged. Bacterial infection possible. >0.50 ng/mL Antibiotic therapy strongly encouraged. Suggestive of presence of bacterial infection. *Antibiotic therapy should be considered regardless of PCT result if the patient is clinically unstable, is at high risk for adverse outcome, has strong evidence of bacterial pathogen, or the clinical context indicates antibiotic therapy is warranted. If antibiotics are withheld, reassess if symptoms persist/worsen and/or repeat PCT measurement within 6-24 hours. In order to assess treatment success and to support a decision to discontinue antibiotic therapy, follow up samples should be tested once every 1-2 days, based upon physician discretion taking into account patient's evolution and progress. Procalcitonin for initial assessment of severe sepsis risk: Results Interpretation <0.5 ng/ml A PCT level below 0.5 ng/ml on the first day of ICU admission is associated with a low risk for progression to severe sepsis and/or septic shock. > 2.0 ng/mL A PCT level above 2.0 ng/mL on the first day of ICU admission is associated with a high risk for progression to severe sepsis and/or septic shock. Note: Concentrations < 0.5 ng/mL do not exclude an infection, on account of localized infections (without systemic signs) which can be associated with such low concentrations, or a systemic infection in its initial stages(< 6 hours). Furthermore, increased procalcitonin can occur without infection. PCT concentrations between 0.5 and 2.0 ng/mL should be interpreted taking into account the patient's history. It is recommended to retest PCT within 6-24 hours if any concentrations < 2 ng/mL are obtained. us Deshawn Paredes DO SEND OUTS Final Res ult Performing Organization Address City/[facility]/ZIP Co de Phone Number [facility] [address] [address] * (ABNORMAL) BLOOD GAS,VENOUS (07/18/2024 1:04 PM CDT) [facility] PH, VENOUS 7.41 7.32 - 7.43 07/18/2024 1:[address] [facility] PCO2, VENOUS 42 41 - 51 mmHg 07/18/2024 1:18 PM [facility] PO2, VENOUS 66(H) 35 - 40 mmHg 07/18/2024 1:18 PM [facility] HCO3,VENOUS 27 22 - 29 mmol/L 07/18/2024 1:18 PM [facility] BASE EXCESS, VENOUS, POCT 1.7 -2.0 - 3.0 07/18/2024 1:18 PM [facility] O2 SATURATION, VENOUS 95(H) 70 - 75 % 07/18/2024 1:[address] [facility] PATIENT TEMPERATURE 37.0 Degrees C 07/18/2024 1:18 PM [facility] Blood VENOUS BLOOD SPECIMEN / Unknown Venipuncture / Unknown 07/18/2024 1:04 PM CDT 07/18/2024 1:15 PM CDT ActBlueedmund AriasSaiguo DO CHEMISTRY Final Res ult Performing Organization Address City/[facility] Co de Phone Number [facility] [address] [place] [phone] * (ABNORMAL) C-REACTIVE PROTEIN (07/18/2024 1:04 PM CDT) C-REACTIVE PROTEIN 0.7(H) <0.5 mg/dL 07/18/2024 1:[address] [facility] Blood BLOOD SPECIMEN / Unknown Venipuncture / Unknown 07/18/2024 1:04 PM CDT 07/18/2024 1:15 PM CDT us Deshawn Paredes DO CHEMISTRY Final Res ult Performing Organization Address [facility] de Phone Number [address] [address] * AMMONIA (07/18/2024 1:04 PM CDT) AMMONIA 38 16 - 60 umol/L 07/18/2024 1:[address] [facility] Blood BLOOD SPECIMEN / Unknown Venipuncture / Unknown 07/18/2024 1:04 PM CDT 07/18/2024 1:[address] [facility] - 07/18/2024 1:37 PM CDT 1. Sulfasalazine and its metabolite Sulfapyridine at therapeutic concentrations may lead to falsely low results. 2. Temozolomide and its metabolite MTIC may lead to falsely elevated results, and its metabolite AIC may lead to falsely low results. us Deshawn Paredes DO CHEMISTRY Final Res ult Performing Organization Address [facility] Co de Phone Number [address] [address] * (ABNORMAL) GLUCOSE METER (07/18/2024 12:02 AM CDT) GLUCOSE METER 171(H) 65 - 100 mg/dL 07/18/2024 12:[address] [facility] Blood BLOOD SPECIMEN / Unknown 07/18/2024 12:02 AM CDT 07/18/2024 12:03 AM CDT us Maria Ines Edwards Hospitalist CHEMISTRY Final Result Performing Organization Address [facility]/ZIP Co de Phone Number [facility] [address] [address] * CT CHEST ABDOMEN PELVIS W (07/17/2024 9:14 PM CDT) Anatomical Region Laterality Modality Abdomen, Pelvis, AORTA, LIVER, SPLEEN, CHEST Computed Tomography us Jordan Hernandez DO CT Final Result * CT SPINE CERVICAL WO (07/17/2024 9:13 PM CDT) Anatomical Region Laterality Modality CERVICAL SPINE, NECK, Spine Comp uted Tomography us Jordan Hernandez DO CT Final Result * BLOOD CULTURE (07/17/2024 9:03 PM CDT) Only the most recent of2 resultswithin the time period is included. CULTURE No Growth. 07/23/2024 4:[address] [facility] Blood BLOOD SPECIMEN / Unknown Butterfly / Unknown 07/17/2024 9:03 PM CDT 07/17/2024 9:04 PM CDT us Jordan Hernandez DO MICROBIOLOGY Final Result Performing Organization Address City/[facility]/ZIP Co de Phone Number [facility] [address] [address] * LACTATE VENOUS (07/17/2024 8:00 PM CDT) LACTATE,VENOUS 1.4 0.5 - 2.0 mmol/L 07/17/2024 8:[address] [facility] Blood BLOOD SPECIMEN / Unknown Butterfly / Unknown 07/17/2024 8:00 PM CDT 07/17/2024 8:03 PM CDT us Jordan Hernandez DO CHEMISTRY Final Result [facility] [address], [place] [address] * (ABNORMAL) DRUG SCREEN RAPID URINE INHOUSE (07/17/2024 7:44 PM CDT) [facility] THC METABOLITES,MOY L Not Detected Not Detected 07/17/2024 8:13 PM [facility] PCP,QUAL Not Detected Not Detected 07/17/2024 8:13 PM [facility] COCAINE,QUAL Not Detected Not Detected 07/18/19 8:13 PM [facility] METHAMPHETAMINE , QUALITATIVE Not Detected Not Detected 07/17/2024 8:13 PM [facility] OPIATES,QUAL Not Detected Not Detected 07/18/19 8:13 PM [facility] AMPHETAMINE, QUALITATIVE Not Detected Not Detected 07/17/2024 8:13 PM [facility] BENZODIAZEPINES ,QUAL Not Detected Not Detected 07/17/2024 8:13 PM [facility] TRICYCLICS,QUAL Non-negative , consider further testing if indicated(A) Not Detected 07/17/2024 8:13 PM [facility] METHADONE, QUALITATIVE Not Detected Not Detected 07/17/2024 8:13 PM [facility] BARBITURATES,QU AL Not Detected Not Detected 07/17/2024 8:13 PM [facility] OXYCODONE, QUALITATIVE Not Detected Not Detected 07/17/2024 8:13 PM [facility] BUPRENORPHINE, QUALITATIVE Not Detected Not Detected 07/17/2024 8:13 PM [facility] Urine URINE SPECIMEN / Unknown Non-Blood / Unknown 07/17/2024 7:44 PM CDT 07/17/2024 7:56 PM CDT [facility] - 07/17/2024 8:13 PM CDT Please Note: This is a screening test only, all results are unconfirmed and should be used for medical purposes only. Unconfirmed results must not be used for non-medical purposes (e.g., employment testing, legal testing). Suggest analyte specific confirmation for all non-negative results. Specimens will be held for 24 hours if additional testing is needed. The following threshold concentrations are used for this analysis: Drug Screening Threshold Buprenorphine 10 ng/mL PCP 25 ng/mL THC Metabolites 50 ng/mL *Opiates 100 ng/mL Oxycodone 100 ng/mL Cocaine 150 ng/mL Benzodiazepines 150 ng/mL Methadone 200 ng/mL Barbiturates 200 ng/mL Tricyclic Antidepressants 300 ng/mL Amphetamines 500 ng/mL Methamphetamines 500 ng/mL *Includes related compounds: Codeine 50 ng/mL Heroin 100 ng/mL Morphine 100 ng/mL Hydrocodone 400 ng/mL Hydromorphone 800 ng/mL Venlafaxine (Effexor) is a known cross reactant in the PCP assay. If clinically indicated, order PCP confirmation. us Jordan Hernandez DO URINE Final Result Performing Organization Address City/[facility] Co de Phone Number [facility] [address] [address] * EKG 12 LEAD (07/17/2024 7:28 PM CDT) Interpretation Sinus rhythm with Premature atrial complexes Septal infarct , age undetermined QTcB >= 480 msec Abnormal ECG When compared with ECG of 11-Mar-2024 21:55, Premature atrial complexes are now Present Nonspecific T wave abnormality now evident in Anterior leads BEYOND NOW Ventricular Rate 81 BPM BEYOND NOW Atrial Rate 81 BPM BEYOND NOW P-R Interval 190 ms BEYOND NOW QRS Duration 78 ms BEYOND NOW QT 424 ms BEYOND NOW QTc 492 ms BEYOND NOW P Wanette 90 degrees BEYOND NOW R Wanette 74 degrees BEYOND NOW T Wanette 76 degrees BEYOND NOW 07/17/2024 7:28 PM CDT 07/18/2024 7:08 PM CDT us Jordan Hernandez DO EKG ORD Final Result Performing Organization Address City/[facility] Co de Phone Number BEYOND NOW [place], [place] * (ABNORMAL) CBC WITH AUTO DIFFERENTIAL (07/17/2024 7:26 PM T) Only the most recent of2 resultswithin the time period is included. WHITE BLOOD COUNT 6.8 4.5 - 11.0 thou/cu mm 07/17/2024 7:50 PM [facility] RED BLOOD COUNT 5.39(H) 4.00 - 5.20 mil/cu mm 07/17/2024 7:50 PM [facility] HEMOGLOBIN 13.6 12.0 - 16.0 g/dL 07/17/2024 7:50 PM [facility] HEMATOCRIT 40.5 33.0 - 51.0 % 07/17/2024 7:50 PM [facility] MCV 75(L) 80 - 100 fL 07/17/2024 7:50 PM [facility] MCH 25.2(L) 26.0 - 34.0 pg 07/17/2024 7:50 PM [facility] MCHC 33.6 32.0 - 36.0 g/dL 07/17/2024 7:50 PM [facility] RDW 17.3(H) 11.5 - 15.5 % 07/17/2024 7:50 PM [facility] PLATELET COUNT 168 140 - 440 thou/cu mm 07/17/2024 7:50 PM [facility] MPV 9.8 6.5 - 11.0 fL 07/17/2024 7:50 PM [facility] % NEUT 53.0 % 07/17/2024 7:50 PM [facility] % LYMPH 33.3 % 07/17/2024 7:50 PM [facility] % MONO 12.6 % 07/17/2024 7:50 PM [facility] % EOS 1.0 % 07/17/2024 7:50 PM [facility] % BASO 0.1 % 07/17/2024 7:50 PM [facility] ABSOLUTE NEUTROPHILS 3.6 1.7 - 7.0 thou/cu mm 07/17/2024 7:[address] [facility] ABSOLUTE LYMPHOCYTES 2.3 0.9 - 2.9 thou/cu mm 07/17/2024 7:[address] [facility] ABSOLUTE MONOCYTES 0.9(H) <0.9 thou/cu mm 07/17/2024 7:[address] [facility] ABSOLUTE EOSINOPHILS 0.1 <0.5 thou/cu mm 07/17/2024 7:[address] [facility] ABSOLUTE BASOPHILS 0.0 <0.3 thou/cu mm 07/17/2024 7:[address] [facility] Blood BLOOD SPECIMEN / Unknown IV Start / Unknown 07/17/2024 7:26 PM CDT 07/17/2024 7:44 PM CDT us Jaremestefania Hernandez DO HEMATOLOGY Final Result Performing Organization Address [facility] de Phone Number [address] [address] * TSH (07/17/2024 7:26 PM CDT) TSH 1.94 0.27 - 4.20 uIU/mL 07/17/2024 8:[address] [facility] Blood BLOOD SPECIMEN / Unknown IV Start / Unknown 07/17/2024 7:26 PM CDT 07/17/2024 7:[address] [facility] - 07/17/2024 8:08 PM CDT In Adults, TSH values between 5.00 and 10.00 uIU/ml do not necessarily indicate the presence of Hypothyroidism. Correlation with clinical findings such as presence of goiter and/or Thyroperoxidase (TPO) Antibody may be helpful. For more information please refer to TATYANA 2004; 291: 228-238. us Jaremestefania Hernandez DO CHEMISTRY Final Result Performing Organization Address [facility] Co de Phone Number [address] [address] * ETHANOL SERUM OR PLASMA (07/17/2024 7:26 PM CDT) Pathologist [facility] ETHANOL <0.010 <0.010 g/dL 07/17/2024 8:[address] [facility] Blood BLOOD SPECIMEN / Unknown IV Start / Unknown 07/17/2024 7:26 PM CDT 07/17/2024 7:44 PM CDT Jordan Hernandez DO CHEMISTRY Final Result [facility] [address] [place] [phone] * T4,FREE (07/17/2024 7:26 PM CDT) [facility] T4,FREE 1.64 0.93 - 1.70 ng/dL 07/18/2024 11:35 AM CDT [facility] Blood BLOOD SPECIMEN / Unknown IV Start / Unknown 07/17/2024 7:26 PM CDT 07/17/2024 7:44 PM CDT Jordan Hernandez DO CHEMISTRY Final Result Performing Organization Address City/[facility]/ZIP Co de Phone Number [facility] [address] [place] [id number], * (ABNORMAL) COMP METABOLIC PANEL (07/17/2024 7:26 PM CDT) [facility] SODIUM 136 136 - 145 mmol/L 07/17/2024 8:[address] [facility] POTASSIUM 2.9(L) 3.5 - 5.1 mmol/L 07/17/2024 8:[address] [facility] CHLORIDE 96(L) 98 - 107 mmol/L 07/17/2024 8:[address] [facility] CO2,TOTAL 24 22 - 29 mmol/L 07/17/2024 8:[address] [facility] ANION GAP 16 5 - 18 07/17/2024 8:[address] [facility] GLUCOSE 119(H) 70 - 99 mg/dL 07/17/2024 8:13 PM [facility] CALCIUM 9.3 8.8 - 10.4 mg/dL 07/17/2024 8:13 PM [facility] Comment: Reference ranges for this test were updated on 01/04/2024 to reflect our healthy population more accurately. Reference range changes are not retroactively applied to results, but previous results using the same methodology can be interpreted in the context of the new reference range. BUN 22 8 - 23 mg/dL 07/17/2024 8:13 PM [facility] CREATININE 0.72 0.50 - 0.90 mg/dL 07/17/2024 8:13 PM [facility] BUN/CREAT RATIO 31(H) 10 - 20 8:13 PM [facility] eGFR >90 >90 mL/min/1.7 3m2 07/17/2024 8:13 PM [facility] Comment:As of 2021, eG FR is calculated by the CKD-EPI creatinine equation without race adjustment. eGFR can be influenced by muscle mass, exercise, and diet. The reported eGFR is an estimation only and is only applicable if the renal function is stable. ALBUMIN 4.3 4.0 - 4.9 g/dL 07/17/2024 8:13 PM [facility] PROTEIN,TOTAL 6.9 6.0 - 8.0 g/dL 07/17/2024 8:13 PM [facility] BILIRUBIN,TOTAL 1.4(H) 0.0 - 1.2 mg/dL 07/17/2024 8:13 PM [facility] ALK PHOSPHATASE 118(H) 35 - 104 IU/L 07/17/2024 8:13 PM [facility] ALT (SGPT) 19 10 - 35 IU/L 07/17/2024 8:13 PM [facility] AST (SGOT) 35 10 - 35 IU/L 07/17/2024 8:13 PM [facility] Blood BLOOD SPECIMEN / Unknown IV Start / Unknown 07/17/2024 7:26 PM CDT 07/17/2024 7:44 PM CDT us Jordan Wiseman Mary CHEMISTRY Final Result Performing Organization Address City/[facility]/ZIP Co de Phone Number [facility] [address] [address] * (ABNORMAL) IRON PLUS IRON BINDING CAP (06/05/2024 3:15 PM CDT) IRON 41 37 - 145 ug/dL 06/06/2024 12:51 PM CDT [facility] UIBC (UNSATURATED) 270 112 - 347 ug/dL 06/06/2024 12:51 PM CDT [facility] IRON BINDING CAPACITY 311 250 - 400 ug/dL 06/06/2024 12:51 PM CDT [facility] IRON,% SATURATION 13(L) 14 - 50 % 06/06/2024 12:51 PM CDT [facility] Blood BLOOD SPECIMEN / Unknown Venipuncture / Unknown 06/05/2024 3:15 PM CDT 06/05/2024 3:18 PM CDT us Nancy Lucero CARDIO CLINICIAN CHEMISTRY Final Result Performing Organization Address [facility] Co de Phone Number [facility] [address] [address], [place] * FERRITIN (06/05/2024 3:15 PM CDT) FERRITIN 84.7 15.0 - 150.0 ng/mL 06/06/2024 12:51 PM CDT [facility] Blood BLOOD SPECIMEN / Unknown Venipuncture / Unknown 06/05/2024 3:15 PM CDT 06/05/2024 3:18 PM CDT us Nancy Lucero CARDIO CLINICIAN CHEMISTRY Final Result Performing Organization Address City/[facility]/ZIP Co de Phone Number [facility] [address] [place] [id number], [place] * ETT (05/23/2024 8:21 AM CDT) Narrative Sima Streeter CRNA Student - 05/23/2024 8:21 AM CDT Sima Streeter CRNA Student 05/23/2024 8:22 AM Procedure: ETT Patient location during procedure: OR ETT Properties Mask Ventilation: oral airway and easy Final Technique: direct laryngoscopy Type: straight Location: oral Tube Size: 7.0 mm Stylet: yes Laryngoscope Blade: Patel Blade Size: 2 Cormack-Lehane Grade View: 1 Insertion Attempts: 1 Placement Verification: auscultation, end tidal CO2 and symmetrical chest wall movement Assessment: atraumatic, pharynx clear and dentition unchanged Secured at: 20 Measured From: gums Pre-intubation dentition check: n/a edentulous. Difficulty: 0 (not difficult) us Nate Erickson MD ANESTHESIA PX NOTE ORDERA BLES Final Result * SCAN-CARDIAC STRIP (05/23/2024 12:00 AM CDT) Narrative 05/23/2024 12:00 AM CDT Ordered by an unspecified provider. 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 Ivory Polisher 07/19/2024 07/19/2024 Healthcare Directive 07/19/2024 025 * Full Code (Latest Code Status on File) Date Activated Date Inactivated Comments 07/17/2024 11:53 PM 07/20/2024 1:20 PM Question Answer Comments Code Status Discussion: Unable to Assess Preferences, Provider to review later * DNR Date Activated Date Inactivated Comments 05/23/2024 8:28 AM 05/23/2024 4:35 PM Question Answer Comments Code Status Discussion: Reviewed Preferences * Full Code Date Activated Date Inactivated Comments 05/23/2024 6:22 AM 05/23/2024 8:27 AM Question Answer Comments Code Status Discussion: Unable to Assess Preferences, Provider to review later * Full Code Date Activated Date Inactivated Comments 03/30/2024 3:52 PM 04/01/2024 6:22 PM Question Answer Comments Code Status Discussion: Reviewed Preferences * DNR Date Activated Date Inactivated Comments 03/17/2024 2:21 AM 03/20/2024 4:43 PM Question Answer Comments Code Status Discussion: Reviewed Preferences Care Teams Tumbling Instructor Relationship Specialty Start Date End Date Chelsea Dye NP [address] [place] [address] PCP - General Nurse Practitioner - Family 01/09/24 Nancy Lucero NP [address] [place] [address] Nurse Practitioner Hematology 04/21/24
--- OUTSIDE RECORDS SUMMARY | 2024-08-14 08:38 | XMS_ITS | Clinical Summary ---
Author Organization [facility] Address [address] [place] [address] Care Team Providers Care Patient Service Specialist Name Role Phone Marnie Libia ARNOLDO Primary Care Provider [phone] Allergies Active Allergy Reactions Criticality Noted Date Comments Copper Itching,Rash Low 09/08/2022 Fever Medications alum & mag hydroxide-simet hicone (MAALOX) 200-200-20 MG/5ML SUSP suspension Take 30 mLs by mouth every 4 hours as needed for indigestion. Active ARIPiprazole (ABILIFY) 5 MG tablet Take 5 mg by mouth daily. Active busPIRone HCl (BUSPAR) 30 MG tablet Take 15 mg by mouth 2 times daily. Active cyanocobalamin [address] under the tongue daily. Active diphenhydrAMINE HCl, Sleep, (ZZZQUIL) 50 MG/30ML LIQD Take by mouth. Active escitalopram (LEXAPRO) 10 MG tablet Take 10 mg by mouth daily. Active ferrous sulfate (FEROSUL) 325 (65 Fe) MG tablet Take 325 mg by mouth daily (with breakfast). Active HYDROcodone-hanna taminophen (NORCO) 5-325 MG tablet Take 1 tablet by mouth every 6 hours as needed for severe pain. Active levothyroxine (SYNTHROID/LEVO THROID) 50 MCG tablet Take 50 mcg by mouth every morning (before breakfast). Active [place]-3 Fatty Acids (FISH OIL PO) Take by mouth. Active ondansetron (ZOFRAN ODT) 4 MG ODT tab Take 4 mg by mouth every 8 hours as needed for nausea. Active pantoprazole (PROTONIX) 40 MG EC tablet Take 40 mg by mouth daily. Active polyethylene glycol (MIRALAX) 17 GM/Dose powder Take 1 Capful by mouth daily. Active propranolol (INDERAL) 10 MG tablet Take 10 mg by mouth 3 times daily. Active Sucralfate (CARAFATE PO) Take by mouth. Active sennosides (SENOKOT) 8.6 MG tablet Take 1 tablet by mouth daily. Active zinc gluconate 50 MG tablet Take 50 mg by mouth daily. Active QUEtiapine (SEROQUEL) 50 MG tablet Take 50 mg by mouth 2 times daily. Active Encounters Date Type Department Care Team Description 05/19/2024 2:57 PM CDT - 05/19/2024 4:12 PM [facility]T [facility] [address] [place] [address] Berkley Fowler MD Endoscopic ultrasound upper tract with 05/19/2024 2:53 PM CDT Anesthesia Event [facility] [address], [address] [place] [address] Monty Colon MD 05/19/2024 1:48 PM CDT - 05/19/2024 4:41 PM CDT Hospital Encounter [facility] PreOP/Phase II [address] [place] [address] Berkley Fowler MD Discharge Disposition: Home or Self Care from Last 3 Months Social History Tobacco Use Types Packs/Day Years Used Date Smoking Tobacco: Never Smokeless Tobacco: Never Tobacco Cessation:Counseling Given: Not Answered Alcohol Use Standard Drinks/Week Comments Not Currently 0 (1 standard drink = 0.6 oz pur e alcohol) Interpersonal Safety Answer Date Record ed Do you feel physically and e motionally safe where you currently live? Yes 05/19/2024 Within the past 12 months, h ave you been hit, slapped, kicked or otherwise physically hurt by someone? No 05/19/2024 Within the past 12 months, h ave you been humiliated or emotionally abused in other ways by your partner or ex-partner? 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 Gender Identity Not on file Sexual Orientation Not on file Last Filed Vital Signs Vital Sign Reading Time Taken Comments Blood Pressure 119/83 05/19/2024 4:00 PM CDT Pulse 82 05/19/2024 4:00 PM CDT Temperature 37.3 C (99.1 F) 05/19/2024 2:20 PM CDT Respiratory Rate 12 05/19/2024 4:00 PM CDT Oxygen Saturation 96% 05/19/2024 3:45 PM CDT Inhaled Oxygen Concentration - - Weight 65.4 kg (144 lb 1.6 oz) 05/19/2024 2:20 P M CDT Height 167.6 cm (5' 6) 05/19/2024 2:20 PM CDT Body Mass Index 23.26 05/19/2024 2:20 PM CDT Plan of Treatment Health Maintenance Due Date Last Done Comments ADVANCE CARE PLANNING 1955 ANNUAL REVIEW OF HM ORDERS 1955 CT COLONOGRAPHY 1955 DEXA 1955 DIABETES SCREENING 1955 FIT 1955 FLEX SIG 1955 MAMMO SCREENING 1956 TSH W/FREE T4 REFLEX 1956 sDNA (Cologuard) 1955 COLONOSCOPY 01/14/1966 COLORECTAL CANCER SCREENING 01/14/1966 HEPATITIS C SCREENING 01/14/1974 DTAP/TDAP/TD VACCINE (1 - Tdap) 01/14/1981 LIPID 1996 PNEUMOCOCCAL VACCINE 50+ YEA RS (1 of 1 - PCV) 01/14/2006 ZOSTER VACCINE (1 of 2) 01/14/2006 FALL RISK ASSESSMENT 01/14/2021 MEDICARE ANNUAL WELLNESS VISIT 01/14/2021 COVID-19 VACCINE ( - 2023-2 5 season) 2023 PHQ-2 (once per calendar year) 2024 INFLUENZA VACCINE (Season Ended) 2024 RSV VACCINE (1 - 1-dose 75+ series) 01/14/2031 HPV VACCINE Aged Out No longer eligi ble based on patient's age to complete this topic MENINGITIS VACCINE Aged Out No longer eligible based on patient's age to complete this topic Procedures Procedure Name Priority Date/Time Associated Diagnosis Comments ESOPHAGOGASTRODUODENOSC OPY, WITH DILATION 05/19/2024 2:55 PM CDT Dilated cbd, acquired Esophagitis Special Needs *htn, s/p afib ablations x2 (2022)-adhd, bipolar affective disorder ENDOSCOPIC ULTRASOUND, ESOPHAGOSCOPY / UPPER GASTROINTESTINAL TRACT (GI) 05/19/2024 2:55 PM CDT Dilated cbd, acquired Esophagitis Special Needs *htn, s/p afib ablations x2 (2022)-adhd, bipolar affective disorder UPPER EUS Routine 05/19/2024 2:30 PM CDT from Last 3 Months Results * UPPER EUS (05/19/2024 2:30 PM CDT) Upper EUS [place] [address] [place] [address] Patient Name: Мария Miller Procedure Date: 05/19/2024 2:30 PM Date of : 1955 Admit Type: Outpatient Age: 69 Room: [place] [id number] Note Status: Finalized Attending MD: BERKLEY FOWLER MD, Instrument Name: [id number] Gastroscope,[id number] [id number] Linear Procedure: Upper EUS Indications: Common bile duct dilation (acquired) seen on CT scan Providers: BERKLEY FOWLER MD, Kya Sanchez RN, Zain West RN Referring MD: AJIT TARANGO, LIBIA ROSS, ARNOLDO, MONIQUE VIERA Medicines: Monitored Anesthesia Care Complications: No immediate complications. Procedure: Pre-Anesthesia Assessment: - Prior to the procedure, a History and Physical was performed, and patient medications and allergies were reviewed. The patient is competent. The risks and benefits of the procedure and the sedation options and risks were discussed with the patient. All questions were answered and informed consent was obtained. Patient identification and proposed procedure were verified by the physician in the procedure room. Mental Status Examination: alert and oriented. Airway Examination: normal oropharyngeal airway and neck mobility. Respiratory Examination: clear to auscultation. CV Examination: normal. Prophylactic Antibiotics: The patient does not require prophylactic antibiotics. Prior Anticoagulants: The patient has taken no anticoagulant or antiplatelet agents. ASA Grade Assessment: III - A patient with severe systemic disease. After reviewing the risks and benefits, the patient was deemed in satisfactory condition to undergo the procedure. The anesthesia plan was to use monitored anesthesia care (MAC). Immediately prior to administration of medications, the patient was re-assessed for adequacy to receive sedatives. The heart rate, respiratory rate, oxygen saturations, blood pressure, adequacy of pulmonary ventilation, and response to care were monitored throughout the procedure. The physical status of the patient was re-assessed after the procedure. After obtaining informed consent, the endoscope was passed under direct vision. Throughout the procedure, the patient's blood pressure, pulse, and oxygen saturations were monitored continuously. The Endosonoscope was introduced through the mouth, and advanced to the second part of duodenum. The endoscope 508 was introduced through the mouth, and advanced to the second part of duodenum. The upper EUS was accomplished with ease. The patient tolerated the procedure fairly well. Findings: ENDOSCOPIC FINDING: : One benign-appearing, intrinsic mild stenosis was found at the gastroesophageal junction. This stenosis measured 1.5 cm (inner diameter) x less than one cm (in length). The stenosis was traversed. A TTS dilator was passed through the scope. Dilation with a 15-16.5-18 mm balloon dilator was performed to 18 mm. GEJ at 32 cm. Large superficial ulcer in mid esophagus about 2 cm in diameter. Grade C esophagitis A large hiatal hernia was present. The ampulla and examined duodenum were normal. ENDOSONOGRAPHIC FINDING: : There was dilation in the common bile duct which measured up to 9 mm. No stones/sludge. Gallbladder absent There was no sign of significant endosonographic abnormality in the pancreatic head, pancreatic body, pancreatic tail, main pancreatic duct and ampulla. The pancreatic duct measured up to 3 mm in diameter. The pancreas was well visualized, no pathologic lymphadenopathy, no masses, no cysts, the pancreatic duct was well visualized from ampulla to tail, the pancreatic duct was thin in caliber, the pancreatic duct was regular in contour. Normal celiac axis and left adrenal gland Benign appearing subcarinal nodes, likely due to esophagitis Impression: - Benign-appearing esophageal stenosis. Dilated. - Large hiatal hernia. - Esophageal ulcer/esophagitis, likley related to hiatal hernia Recommendation: - Discharge patient to home (ambulatory). - Resume regular diet today. - Perform an upper GI endoscopy in 2 months to evaluate healing of esophagus after HH repair. - Pt continue BID PPI and carafate. Berkley Fowler MD BERKLEY FOWLER MD 05/19/2024 3:32:00 PM I was physically present for the entire viewing portion of the exam. BERKLEY FOWLER MD Number of Addenda: 0 Note Initiated On: 05/19/2024 2:30 PM Total Procedure Duration: 0 hours 13 minutes 22 seconds Estimated Blood Loss: Estimated blood loss was minimal. Scope In: 3:04:35 PM Scope Out: 3:17:57 PM RADIOLOGY RESULTS 05/19/2024 2:30 PM CDT us Katie Nuno PA-C PROCEDURES Final R esult RADIOLOGY RESULTS from Last 3 Months Insurance [place]ICAID [place] [employer] MEDICARE ADVANTAGE MEDICAID [place] [employer] MEDICARE ADVANTAGE Care Teams Patient Service Specialist Relationship Specialty Start Date End Date Libia Ross NP [address] [place] [id number] PCP - General Nurse Practitioner 04/25/24
[2024-08-14 08:40] VITALS: BP 127/73; PULSE 50; RESP 16; TEMP 36.6; O2SAT 98; BMI 23.0
[2024-08-14 08:51] VITALS: PULSE 48; RESP 16; O2SAT 97
[2024-08-14 08:52] VITALS: O2SAT 97
[2024-08-14 09:00] VITALS: BP 103/64; BP 105/63; BP 109/66; PULSE 48; PULSE 49
[2024-08-14 09:11] LABS: Appearance Urine Clear (Clear); Bilirubin Urine Negative (Negative); Blood Urine Trace-lysed (Negative); Color Urine Yellow (Yellow); Glucose Urine Negative (Negative); Ketones Urine Negative (Negative); Leukocyte Esterase Urine Trace (Negative); Nitrite Urine Negative (Negative); Protein Urine Negative (Negative); Urobilinogen Urine 0.2 (0.2-1.0); pH Urine 5.5 (5.0-8.5)
[2024-08-14] MEDS: 0.9 % SODIUM CHLORIDE 1000 ml 1,000 ML IV (09:16)
[2024-08-14 09:19] LABS: Basophils Absolute Auto 0.03 K/uL (0.00-0.30); Basophils Percent Auto 0.5 % (0.0-3.0); Eosinophils Absolute Auto 0.31 K/uL (0.00-0.50); Hematocrit 43.3 % (33.0-51.0); Hemoglobin* 13.5 gm/dL (12.0-16.0); Immature Granulocytes Abs Auto 0.01 K/uL (0.00-0.30); Immature Granulocytes Pct Auto 0.2 %; Lymphocytes Absolute Auto 2.55 K/uL (0.90-2.90); Lymphocytes Percent Auto 41.1 % (20-44); Mean Corpuscular HGB Conc 31 gm/dL (32-36); Mean Corpuscular Hemoglobin 25 pg (26-34); Mean Corpuscular Volume 81 fL (80-100); Neutrophils Absolute Auto 2.69 K/uL (1.7-7.0); Neutrophils Percent Auto 43.2 % (42.0-72.0); Platelet Count* 254 K/uL (140-440); RDW Coefficient of Variation % 17.7 % (11.5-15.5); Red Blood Count 5.37 m/uL (4.00-5.20); White Blood Count* 6.21 K/uL (4.50-11.00)
[2024-08-14 09:22] LABS: Amorphous Sediment Urine Few; RBC Urine 0-2 (0-2); Squamous Epithelial Cell Urine Few (None-Few); WBC Urine 0-2 (0-5)
--- NOTE | 2024-08-14 09:24 | ED.GENADULT ---
HPI - General Adult General Chief complaint: Dizziness/Vertigo Stated complaint: Pre-Cardia Time Seen by Provider: 08/14/24 08:43 Source: patient Mode of arrival: EMS Limitations: no limitations History of Present Illness HPI narrative: Patient is a 69-year-old female presenting today with dizziness. Patient had a clinic appointment today and was found to be quite dizzy when she stood up so they sent her to the ER for evaluation. Patient states she has been dizzy on and off for a couple of weeks. It is always when she goes from a sitting to a standing position. She states that for the last 2 days she has had significant diarrhea, yesterday was the worst of it. She has been trying to stay hydrated but she feels like she has lost the bottle. She denies any blood in her stool. No nausea or vomiting. No fevers or chills. States that she has not had a bowel movement today, so Feels that symptoms are likely improving. She denies chest pain or shortness of breath. Denies vertiginous symptoms such as the room spinning. The dizziness that she feels when she stands up lasts a few seconds and then passes. She denies headache, changes in her vision or ringing in her ears. Related Data Home Medications ?Medication ?Instructions ?Recorded ?Confirmed buspirone PO BID 03/03/24 levothyroxine 50 mcg capsule 50 mcg PO DAILY 03/03/24 08/14/24 aluminum-mag hydroxide-simethicone ml 08/14/24 200 mg-200 mg-20 mg/5 mL oral susp (Antacid-Antigas) carboxymethylcellulose sodium 0.5 drp ophthalmic (eye) 08/14/24 % eye drops (Refresh Tears) ondansetron 4 mg disintegrating 4 mg PO Q8H PRN 08/14/24 08/14/24 tablet pantoprazole 40 mg tablet,delayed 40 mg PO BID 08/14/24 08/14/24 release paroxetine HCl 10 mg tablet PO 08/14/24 quetiapine 25 mg tablet mg PO 08/14/24 sennosides 8.6 mg tablet (senna) 17.2 mg PO DAILY 08/14/24 08/14/24 sodium chloride 0.65 % nasal spray intranasal 08/14/24 aerosol (Deep Sea Nasal) sucralfate 100 mg/mL oral ml PO 08/14/24 suspension Allergies Allergy/AdvReac Type Severity Reaction Status Date / Time copper Allergy Mild rash Verified 08/14/24 08:49 rubén Allergy Mild rash Uncoded 03/03/24 15:34 Review of Systems Status of ROS: Reports: 10 or more systems reviewed and unremarkable except as noted in History and below [facility] Social History Smoking Status: Never smoker Do you use any of these nicotine containing products: None How often do you have a drink containing alcohol: never AUDIT-C Alcohol total score: 0 Non-prescribed substance use: denies use Exam Narrative: Exam Narrative: Well-nourished well-developed patient in no acute distress. Alert and oriented X3. Answers questions appropriately. Mood and affect are appropriate. Thoughts are goal oriented and rational. No tangential or magical thinking noted. Patient speaks in full sentences without needing to catch Her breath. HEENT: Normocephalic atraumatic. Pupils are equally round reactive to light. Extraocular muscles are intact. Conjunctivae are moist without any icterus noted , slightly pale. Moist mucous membranes. Posterior pharynx is normal. Cardiovascular: bradycardic, regular rhythm. No murmurs are appreciated. Lungs: Clear to auscultation bilaterally no wheezes rhonchi or rales are appreciated. Patient takes deep breaths without any discomfort. Abdomen: Soft and nontender nondistended with normal bowel sounds. Extremities: Bilateral lower extremities are without edema. Skin: Well perfused . Strength is 5/5 of the upper and lower extremities. Reflexes are 2+ and symmetric at the knees. Cranial nerves 3-12 are grossly normal. There is no nystagmus either horizontally or vertically. Const: Vital Signs, click to edit/add: Vital Signs - 24 hr 08/14/24 08:40 08/14/24 08:51 08/14/24 08:52 Temperature 97.8 F Pulse Rate 48 L Pulse Rate [Right Pulse Oximeter] 50 L Pulse Rate [orthos tatic lying] Pulse Rate [orthos tatic sitting] Pulse Rate [orthos tatic standing] Respiratory Rate 16 16 Blood Pressure Blood Pressure [Ri ght Upper Arm] 127/73 Blood Pressure [or thostatic lying] Blood Pressure [or thostatic sitting] Blood Pressure [or thostatic standing ] Pulse Oximetry 98 97 97 Oxygen Delivery Me thod Room Air 08/14/24 09:00 08/14/24 09:45 08/14/24 10:02 Temperature Pulse Rate 51 L Pulse Rate [Right Pulse Oximeter] Pulse Rate [orthos tatic lying] 48 L Pulse Rate [orthos tatic sitting] 49 L Pulse Rate [orthos tatic standing] 48 L Respiratory Rate 16 Blood Pressure 104/55 L Blood Pressure [Ri ght Upper Arm] Blood Pressure [or thostatic lying] 105/63 Blood Pressure [or thostatic sitting] 103/64 Blood Pressure [or thostatic standing ] 109/66 Pulse Oximetry 97 Oxygen Delivery Me thod Course Course ED Course: IV established. Patient started on 1 L of normal saline. Patient had no evidence of orthostatic hypotension, was not symptomatic while in the ER. Patient is chronically bradycardic, this is not new for her. EKG, read by me, shows sinus bradycardia with a pulse of 47. No significant changes from previous EKG. She does have a new T-wave inversion in V2. Patient stated that she did not have her morning medications today and so those were given to her: Levothyroxine 50 mcg, paroxetine 10 mg and Seroquel 25 mg. Lab work is unremarkable. TSH pending at this time. UA showing trace leukocyte esterase. Culture pending. Patient feeling better after fluids, requesting to be discharged home at this time. Vital Signs Vital signs: Initial Vital Signs Temperature 97.8 F 08/14/24 08:40 Temperature Source Temporal Artery Scan 08/14/24 08:40 Pulse Rate 50 L 08/14/24 08:40 Pulse Rhythm Regular 08/14/24 08:40 Pulse Strength 3+ Normal 08/14/24 08:40 Respiratory Rate 16 08/14/24 08:40 Blood Pressure 127/73 08/14/24 08:40 Blood Pressure Mean 91 08/14/24 08:40 Blood Pressure Position Sitting 08/14/24 08:40 Pulse Oximetry 98 08/14/24 08:40 Oxygen Delivery Method Room Air 08/14/24 08:40 Vital Signs Temperature 97.8 F 08/14/24 08:40 Pulse Rate 50 L 08/14/24 08:40 Respiratory Rate 16 08/14/24 08:40 Blood Pressure 127/73 08/14/24 08:40 Pulse Oximetry 98 08/14/24 08:40 Oxygen Delivery Method Room Air 08/14/24 08:40 Temperature 97.8 F 08/14/24 08:40 Pulse Rate 51 L 08/14/24 10:02 Respiratory Rate 16 08/14/24 10:02 Blood Pressure 104/55 L 08/14/24 10:02 Pulse Oximetry 97 08/14/24 09:45 Oxygen Delivery Method Room Air 08/14/24 08:40 Medications Administered Medications: Discontinued Medications Generic Name Dose Route Start Last Admin Trade Name Micheal PRN Reason Stop Dose Admin Sodium Chloride 1,000 mls @ 1,000 mls/hr 08/14/24 09:00 08/14/24 10:08 0.9 % Sodium Chloride 1000 Ml IV 08/14/24 09:59 Infused .Q1H MATHIEU Infusion Levothyroxine Sodium 50 mcg 08/14/24 09:29 08/14/24 09:55 Levothyroxine 25 Mcg Tablet PO 08/14/24 09:30 50 mcg ONCE ONE Administration Paroxetine HCl 10 mg 08/14/24 09:30 08/14/24 09:55 Paroxetine 20 Mg Tablet PO 08/14/24 09:31 10 mg ONCE ONE Administration Quetiapine Fumarate 25 mg 08/14/24 09:30 08/14/24 09:56 Quetiapine 25 Mg Tablet PO 08/14/24 09:31 25 mg ONCE ONE Administration Medical Decision Making MDM Narrative Medical decision making narrative: 69-year-old female presenting with lightheadedness upon standing. We discussed maintaining hydration, moving slowly and following up with primary care as needed. Lab Data Lab results reviewed: Yes I reviewed the patient's lab results Labs: Lab Results 08/14/24 08/14/24 Range/Units 09:00 09:10 WBC 6.21 (4.50-11.00) K/uL RBC 5.37 H (4.00-5.20) m/uL Hgb 13.5 (12.0-16.0) gm/dL Hct 43.3 (33.0-51.0) % MCV 81 (80-100) fL MCH 25 L (26-34) pg MCHC 31 L (32-36) gm/dL RDW Coeff of Krissy 17.7 H (11.5-15.5) % Plt Count 254 (140-440) K/uL Neut % (Auto) 43.2 (42.0-72.0) % Lymph % (Auto) 41.1 (20-44) % [place] % (Auto) 10.0 (0.0-11.0) % Eos % (Auto) 5.0 (0.0-7.0) % Baso % (Auto) 0.5 (0.0-3.0) % Neut # (Auto) 2.69 (1.7-7.0) K/uL Lymph # (Auto) 2.55 (0.90-2.90) K/uL [place] # (Auto) 0.60 (0.00-0.90) K/UL Eos # (Auto) 0.31 (0.00-0.50) K/uL Baso # (Auto) 0.03 (0.00-0.30) K/uL Abs Immat Gran (auto) 0.01 (0.00-0.30) K/uL Imm/Tot Granulo (auto) 0.2 % Sodium 136 (135-149) mmol/L Potassium 4.2 (3.6-5.1) mmol/L Chloride 101 (96-114) mmol/L Carbon Dioxide 26 (20-32) mmol/L Anion Gap 9 (7-15) mEq/L BUN 19 (7-30) mg/dL Creatinine 0.6 (0.5-1.5) mg/dL Estimated Creat Clear 50.41 Estimated GFR 98 ml/min Glucose 84 (60-115) mg/dL Lactate 1.0 (0.5-1.9) mmol/L Calcium 9.6 (8.4-10.6) mg/dL Magnesium 1.9 (1.5-2.6) mg/dL Total Bilirubin 0.6 (0.1-1.5) mg/dL Direct Bilirubin 0.1 (0.0-0.5) mg/dL AST 37 H (12-35) U/L ALT 29 (4-35) U/L Alkaline Phosphatase 127 (40-150) U/L Troponin I < 0.01 (0.01-0.04) ng/mL C-Reactive Protein < 0.5 L (0.5-1.0) mg/dL Total Protein 7.4 (6.0-8.3) g/dL Albumin 4.4 (3.3-5.0) g/dL Urine Color Yellow (Yellow) Urine Appearance Clear (Clear) Urine pH 5.5 (5.0-8.5) Ur Specific [place] 1.020 (1.000-1.030) Urine Protein Negative (Negative) Urine Glucose (UA) Negative (Negative) Urine Ketones Negative (Negative) Urine Blood Trace-lysed A (Negative) Urine Nitrite Negative (Negative) Urine Bilirubin Negative (Negative) Urine Urobilinogen 0.2 (0.2-1.0) Ur Leukocyte Esterase Trace A (Negative) Urine RBC 0-2 (0-2) Urine WBC 0-2 (0-5) Ur Squamous Epith Cells Few (None-Few) Amorphous Sediment Few A (None) Urine Bacteria None (None) ECG Data Attestation: I personally reviewed and interpreted this ECG as follows: Discharge Plan Discharge Clinical Impression: Positional lightheadedness Patient Disposition: Home, Self-Care Condition: Stable Additional Instructions: Make sure to stay well hydrated. Follow-up with primary care as needed. Prescriptions: No Action quetiapine 25 mg tablet PO sennosides [senna] 8.6 mg tablet 17.2 mg PO DAILY paroxetine HCl 10 mg tablet PO sucralfate 100 mg/mL suspension PO carboxymethylcellulose sodium [Refresh Tears] 0.5 % drops ophthalmic (eye) pantoprazole 40 mg tablet,delayed release (DR/EC) 40 mg PO BID alum-mag hydroxide-simeth [Antacid-Antigas] 200-200-20 mg/5 mL suspension Patient Comments: [NO ORIGINAL SIG] ondansetron 4 mg tablet,disintegrating 4 mg PO Q8H PRN Deep Sea Nasal 0.65 % aerosol,spray INTRANASAL Patient Comments: [NO ORIGINAL SIG] levothyroxine 50 mcg capsule 50 mcg PO DAILY buspirone PO BID Follow Up/Referrals: Provider,Not a Local [Primary Care Provider, Family Practice] Stand Alone Forms: The Author Hubth Info Instructions
[2024-08-14 09:37] LABS: Albumin* 4.4 g/dL (3.3-5.0); Chloride* 101 mmol/L (96-114); Sodium* 136 mmol/L (135-149)
[2024-08-14 09:38] LABS: Potassium* 4.2 mmol/L (3.6-5.1)
[2024-08-14 09:40] LABS: Alanine Aminotransferase* 29 U/L (4-35); Alkaline Phosphatase* 127 U/L (40-150); Anion Gap 9 mEq/L (7-15); Aspartate Amino Transferase* 37 U/L (12-35); Bilirubin Direct* 0.1 mg/dL (0.0-0.5); Bilirubin Total* 0.6 mg/dL (0.1-1.5); Blood Urea Nitrogen* 19 mg/dL (7-30); Calcium* 9.6 mg/dL (8.4-10.6); Carbon Dioxide* 26 mmol/L (20-32); Creatinine* 0.6 mg/dL (0.5-1.5); Est. Creatinine Clearance* 50.41; Estimated Glomerular Filt Rate 98 ml/min; Glucose* 84 mg/dL (60-115); Total Protein* 7.4 g/dL (6.0-8.3)
[2024-08-14 09:41] LABS: Magnesium* 1.9 mg/dL (1.5-2.6)
[2024-08-14 09:42] LABS: Slide Review Reflex No
[2024-08-14 09:45] VITALS: O2SAT 97
[2024-08-14 09:54] LABS: C Reactive Protein* < 0.5 mg/dL (0.5-1.0); Troponin I* < 0.01 ng/mL (0.01-0.04)
[2024-08-14] MEDS: LEVOTHYROXINE 25 MCG TABLET 50 MCG PO (09:55)
[2024-08-14] MEDS: PARoxetine 20 MG TABLET 10 MG PO (09:55)
[2024-08-14] MEDS: QUETIAPINE 25 MG TABLET PO (09:56)
[2024-08-14 10:02] VITALS: BP 104/55; PULSE 51; RESP 16
== END 2024-08-14 10:43 | disposition home or self-care (01) ==
PROVIDERS: Emergency Provider Family Medicine
DX: R42 Dizziness and giddiness (principal)
CPT/HCPCS: 36415; 80048; 80076; 81001; 83605; 83735; 84443; 84484; 85025; 86140; 87086; 93005; 94761; 96360; 99284; A9270; J7030

== ENCOUNTER 2024-11-03 19:46 | Emergency (ER) | payer MEDICARE, SELFPAY ==
--- OUTSIDE RECORDS SUMMARY | 2015-04-22 10:50 | XMS_ITS | Continuity of Care Document ---
Author Organization [facility] Address [address] [place] [address] Phone Care Team Providers Care Emotional Support Teacher Name Role Phone Field Rudy OD, Sandra Unavailable Unavaila ble Allergies, Adverse Reactions, Alerts Substance Reaction Status Criticality latex Hives - Rash Active No Information copper Sick Active No Information codeine nausea Active No Information morphine nausea,anxiety Active No Informatio n Medications Medication Instructions Dosage Effective Dates (start - stop) Status Comments Pataday 0.2 % Eye Drops instill 1 drop by ophthalmic route every day into affected eye(s) - Active tobramycin 0.3 % Eye Drops instill 1 drop by ophthalmic route every 4 hours into affected eye(s) 1.00 drop - Active alprazolam 0.5 mg Tab take 1 tablet (0.5MG) by oral route 3 times every day 0.5 MG - Active Zyprexa 5 mg Tab take 1 tablet (5MG) by oral route every day 5 MG - Active Levothyroxine 50 mcg Tab - Active Adderall 30 mg Tab - Active Zyprexa 5 mg Tab Use as directed by prescribing physician - Active Bupropion HCl SR 150 mg Tab - Active Procedures Procedure Date EYE EXAM & TREATMENT EYE EXAM & TREATMENT Advance Directives Directive Yes / No Effective Date File Name No Information Encounters Encounter Description Practice Location Reason(s) For Visit Diagnoses Date Provider Providers Copied on Encounter [facility], [address] [place], [id number], [place] tel:[phone] [place] dilated exam (chief complaint) Age-related nuclear cataract, bilateralOther subjective visual disturbances 6 Field Rudy Flores. [address], [place], [place], [id number] , . tel:[phone] Referring Provider: Sandramarlo Tena, [address], [place], [address] . tel:[phone] [facility] [place], [facility] [address] [place], [id number], tel:[phone] [place] Senile nuclear sclerosisDiplop iaConjunctiviti s, unspecified 4 Field Rudy Flores. [address], [place], [place], [id number] , [place]. tel:[phone] Referring Provider: Sandra Tena, [address], [place], [address] . tel:[phone] [facility] [place], [address] [place] [address] [place], [id number], tel:[phone] [place] Senile nuclear sclerosisConjun ctivitis, unspecified 1 Field Rduy Flores. [address], [place], [place], [id number] , . tel:[phone] [facility] [place], [address] [place] [address] [place], [id number], tel:[phone] [place] Foreign body in conjunctival sac 0200 9 Field Rudy Flores. [address], [place], [place], [id number] , . tel:[phone] Family History Family Member Type Diagnosis Age At Onset Father Problem (finding) degenerative disorder o f macula Multiple Problem (finding) heart problems Problem (finding) cancer Multiple Problem (finding) mental problmes Payers Payer name Insurance type Covered green party ID Mehul canales(s) [employer] CI [id number] [facility] Health Choice [id number] Pa per Referral Social History Type Description Quantity Date Captured Comments Alcohol Use Details No Caffeine Use Details No Tobacco Use Status No Information Smoking Status Never smoker Non-Smoking Tobacco Use Details : No Details Available : No Details Available Sex Female Chief Complaint And Reason For Visit From encounter dated '04/22/2015 15:50'. dilated exam (chief complaint). Description: The 60 year old female presents for evaluation of dilated exam in the right eye and left eye. It started about 2 year(s) ago. The symptom is frequent. Thecondition is described as seeing floaters, glare, fuzzy vision and double vision. Pt uses erythramycin ointment TID OU for the past 4 years. Reason For Referral Reason For Referral No Information History Of Present Illness Encounter Date Complaint History Of Prese nt Illness dilated exam The 60 year old female presents for evaluation of dilated exam in the right eye and left eye. It started about 2 year(s) ago. The symptom is frequent. The condition is described as seeing floaters, glare, fuzzy vision and double vision. Pt uses erythramycin ointment TID OU for the past 4 years. Functional Status Date Functional Assessmen t No Information Instructions Date Instruction Additional Infor mation Related to Age-r elated nuclear cataract, bilateral - Discussed diagnosi s in detail with patient. Will continue to observe condition and or symptoms. Recommend refraction with Dr Stallings Related to Age-related nuclear cataract, bilateral - Return in 1 year w catina Brown, OD for Complete Exam Related to Age-related nuclear cataract, bilateral - Fu with PCP if sym ptoms continue after receiving glasses Rx Related to Other subjective visual disturbances - Return in 1 year w catina Brown, OD for Complete Exam. Related to Senile nuclear sclerosis Senile nuclear scler osis OU - Discussed diagnosis in detail with patient. Will continue to observe condition and or symptoms. Related to Senile nuclear sclerosis History of Conjuncti vitis quiet today. Patient reports possible MRSA - Continue to follow with PCP Related to Conjunctivitis, unspecified C/O Diplopia, unable to elicit in office - Refraction with Dr Stallings recommended Related to Diplopia Conjunctivitis, OU - New sample medication(s) Rx given today. Can have Rx if desires. Related to Conjunctivitis - Return in 1 year(s for Complete Exam, C/O headaches and na usea, patient reports diplopia, unable to elicite in office - Continue to follow with PCP, possible neurological consult. Cataract, Nuclear Sc lerosis, OU - Discussed cataract diagnosis with the patient. Will continue to observe condition and symptoms. Related to Cataract, Nuclear Sclerosis The patient did not bring in her new glasses. Reports problems seeing with them. - If continued problems recommend glasses recheck with Dr. Stallings. FB-Conjunctival, OS - FB removal OS, pressure patch OS x 24 hours, new medication given today Related to FB-Conjunctival - Return in PRN or if problems R elated to FB-Conjunctival Assessments Type Assessment Date assessment Age-related nuclear cataract, bi lateral impression impression assessment Other subjective visual disturba nces Patient Care Teams Name Effective Dates (start - stop) Status Members No Information
--- OUTSIDE RECORDS SUMMARY | 2015-04-22 10:50 | XMS_ITS | Continuity of Care Document ---
Author Organization [facility] Address [address] [place] [address] Phone Care Team Providers Care Meat Cutter Name Role Phone Field Rudy OD, Sandra [...] Diagnoses Date Provider Providers Copied on Encounter [facility], [address] [place], [id number], [place] tel:[phone] [place] dilated exam (chief complaint) Age-related nuclear cataract, bilateralOther subjective visual disturbances 6 Field Rudy Flores. [address], [place], [place], [id number] , . tel:[phone] Referring Provider: Sandramarlo Tena, [address], [place], [address] . tel:[phone] [facility] [place], [facility] [address] [place], [id number], tel:[phone] [place] Senile nuclear sclerosisDiplop iaConjunctiviti s, unspecified 4 Field Rudy Flores. [address], [place], [place], [id number] , [place]. tel:[phone] Referring Provider: Sandra Tena, [address], [place], [address] . tel:[phone] [facility], [address] [place] [address] [place], [id number], tel:[phone] [place] Senile nuclear sclerosisConjun ctivitis, unspecified 1 Field Rudy Flores. [address], [place], [place], [id number] , . tel:[phone] [facility], [address] [place] [address] [place], [id number], tel:[phone] [place] Foreign body in conjunctival sac 0200 9 Field Rudy Flores. [address], [place], [place], [id number] , . tel:[phone] Family History Family Member Type Diagnosis Age At Onset Father Problem (finding) degenerative disorder o f macula Multiple Problem (finding) heart problems Problem (finding) cancer Multiple Problem (finding) mental problmes Payers Payer name Insurance type Covered alliance party ID Mehul canales(s) [employer] CI [id number] [facility] Health Choice [id number] Pa per Referral Social History Type Description [...]
--- OUTSIDE RECORDS SUMMARY | 2020-04-25 06:47 | XMS_ITS | Continuity of Care Document ---
Author Organization [facility] Address [address] [place] [address] Phone Care Team Providers Care Nursery Manager Name Role Phone Unavailable Unavailable Unavailable Allergies, Adverse Reactions, Alerts Substance Reaction Status Criticality copper Active No Information Medications Medication Instructions Dosage Effective Dates (start - stop) Status Comments OXYCODONE HCL (unknown strength) take 1 tablet by oral route every 6 hours Not Available - Active cefdinir 300 mg capsule take 1 capsule by oral route 2 times every day 300 MG - Active Adderall 5 mg tablet - Active Synthroid 50 mcg tablet take 1 tablet by oral route every day 50 MCG - Active Procedures Procedure Date Offic/outpt E&m Estab Mod-ma 4 20 Service(s) provided in the office during regularly Ua Dip Stik/tablet; Wo Micro A 18 Offic/outpt E&m Estab Mod-hi 2 18 Service(s) provided in the office during regularly Inj Ceftriaxone Sodium Per 250 MG Therapeutic, Prophylactic, Or Diagnostic Inj Sub Q Offic/outpt E&m Estab Mod-hi 2 18 Ua Dip Stik/tablet; Wo Micro A 17 Handl/convey Specmn-offic To L 17 Offic/outpt E&m Estab Mod-hi 2 17 Offic/outpt E&m Estab Mod-hi 2 15 Offic/outpt E&m Estab Mod-hi 2 14 Offic/outpt E&m Estab Mod-hi 2 12 Services provided in an urgent care [place] Offic/outpt E&m Estab Mod-hi 2 12 Services provided in an urgent care [place] Offic/outpt E&m Estab Mod-ma 2 12 Offic/outpt E&m Estab Mod-hi 2 11 Services provided in an urgent care [place] er Therapeutic, Prophylactic, Or Diagnostic Inj Sub Q Inj Ketorolac Tromethamine Per 15 Mg Jan Offic/outpt E&m Estab Mod-hi 2 11 Rad Exam Ribs Unilat; 2 Views 1 Rad Exam Spine Lumbosacr; Ap & 11 Service(s) provided in the office during regularly Services provided in an urgent care [place] Offic/outpt E&m Estab Mod-ma 2 11 Services provided in an urgent care [place] Offic/outpt E&m Estab Mod-hi 2 11 Offic/outpt E&m Estab Mod-ma 2 11 Offic/outpt E&m Estab Mod-hi 2 10 Service(s) provided in the office during regularly Noninvas Oximetry-o2 Sat; 1 De 10 Offic/outpt E&m Estab Mod-hi 2 10 Offic/outpt E&m Estab Mod-hi 2 10 Service(s) provided in the office during regularly Therapeutic, Prophylactic, Or Diagnostic Inj Sub Q Inj Ketorolac Tromethamine Per 15 Mg Oct Ecg-routine 12 Lead; W/intrpt 0 Noninvas Oximetry-o2 Sat; 1 De 10 Offic/outpt E&m Estab Mod-hi 2 10 Noninvas Oximetry-o2 Sat; 1 De 10 Offic/outpt E&m Estab Mod-hi 2 10 Offic/outpt E&m Estab Mod-hi 4 10 Offic/outpt E&m Estab Mod-ma 4 10 Offic/outpt E&m Estab Mod-ma 4 10 Service(s) provided in the office during regularly Routine Venipunct/finger/heel 0 Ua Dip Stik/tablet; Wo Micro A 10 Handl/convey Specmn-offic To L 10 Ecg-routine 12 Lead; W/intrpt 0 Offic/outpt E&m Estab Mod-ma 4 10 Service(s) provided in the office during regularly Ua Dip Stik/tablet; Andria Micro A 10 Offic/outpt E&m Estab Mod-ma 4 10 Service(s) provided in the office during regularly Noninvas Oximetry-o2 Sat; 1 De 10 Offic/outpt E&m Estab Mod-ma 4 09 Service(s) provided in the office during regularly Offic/outpt E&m Estab Mod-ma 4 09 Offic/outpt E&m Estab Mod-ma 4 09 Service(s) provided in the office during regularly Offic/outpt E&m Estab Mod-ma 2 07 Offic/outpt E&m Estab Mod-ma 2 07 Specimen Handling Ua Dip Stik/tablet; Andria Micro A 07 Offic/outpt E&m Estab Mod-ma 4 07 Offic/outpt E&m Estab Mod-ma 4 07 Agt-immunassay Dir Obs; Strep 7 Ua Dip Stik/tablt;wo Micro Non 07 Offic/outpt E&m Estab Mod-ma 2 06 Noninvas Oximetry-o2 Sat; 1 De 06 Offic/outpt E&m Estab Mod-ma 2 06 Offic/outpt E&m New Mod Sever 5 Offic/outpt E&m Estab Low-mod 5 Offic/outpt E&m New Mod Sever 5 Advance Directives Directive Yes / No Effective Date File Name No Information Encounters Encounter Description Practice Location Reason(s) For Visit Diagnoses Date Provider Providers Copied on Encounter [facility], [address], [place], [place], [id number] , [place] tel: [phone] [facility] No Information 1 No Information Offic/outpt E&m Estab Mod-hi 4 [facility], [address], [place], [place], [id number] , [place] tel: [phone] [facility] Chest pain (chief complaint) Paroxysmal A-fibChest pain, unspecified type 0 No Information Offic/outpt E&m Estab Mod-hi 2 [facility], [address], [place], [place], [id number] , [place] tel: [phone] [facility] urinary problems (chief complaint) Acute cystitis with hematuria 8 Linda Menjivar. [address], [place], [address], [place]. tel:[phone] Referring Provider: Tiara MEYERS, [address], [place], [address]. tel:[phone] Offic/outpt E&m Estab Mod-hi 2 [facility], [address], [place], [place], [id number] , [place] tel: [phone] [facility] laceration (chief complaint) Cellulitis of finger of right hand 8 Charlemont MANAGER SAP Arti. [address], [place], [address], [place]. tel:[phone] Offic/outpt E&m Estab Mod-hi 2 [facility], [address], [place], [place], [id number] , [place] tel: [phone] [facility] urinary problems (chief complaint) DysuriaUrinary tract infection without hematuria, site un 7 No Information Offic/outpt E&m Estab Mod-ma 2 [facility], [address], [place], [place], [address] , [place] tel: [phone] [facility] eye problem (chief complaint) Sensation of foreign body in eye 5 Arabella Cash. [address], [place], [address], [place]. tel:[phone] Referring Provider: Shailesh RUDOLPH, [address], [place], [address]. tel:[phone] Offic/outpt E&m Estab Mod-ma 2 [facility], [address], [place], [place], [id number] , [place] tel: [phone] [facility] other (chief complaint) Dental abscess 4 No Information Offic/outpt E&m Estab Mod-ma 2 [facility], [address], [place], [place], [id number] , [place] tel: [phone] [facility] eye discomfort (chief complaint)r pedro (chief complaint)c ough (chief complaint) ACUTE BRONCHITISCOUGHDE RMATITIS NOSACUTE CONJUNCTIVITIS NOS 2 No Information Offic/outpt E&m Estab Mod-ma 2 [facility], [address], [place], [place], [address] , [place] tel: [phone] [facility] mouth/gum/l ip pain (chief complaint) Stomatitis And Mucositis UnspStomatitis And Mucositis Unsp 2 No Information Offic/outpt E&m Estab Mod-ma 2 [facility], [address], [place], [place], [address] , [place] tel: [phone] [facility] eye discomfort (chief complaint)m uscle aches (chief complaint) Acute Sinusitis NosAcute Sinusitis NosAllergic Rhinitis NosAllergic Rhinitis NosBipolar Affective NosBipolar Affective NosAc Atopic ConjunctivitisAc Atopic Conjunctivitis 2 No Information Offic/outpt E&m Estab Mod-hi 2 [facility], [address], [place], [place], [address] , [place] tel: [phone] [facility] back pain (chief complaint)h eadache (chief complaint)m outh/gum/li p pain (chief complaint) CHRONIC PAIN NECCHRONIC PAIN NEC 1 Hernán RUDOLPH Stephanie. [address], [place], [address], [place]. tel: [phone] Offic/outpt E&m Estab Mod-hi 2 [facility], [address], [place], [place], [id number] , [place] tel: [phone] [facility] muscle aches (chief complaint) Gingiv/periodont Dis NosGingiv/periodo nt Dis Nos 1 No Information Offic/outpt E&m Estab Mod-hi 2 [facility], [address], [place], [place], [address] , [place] tel: [phone] [facility] back pain (chief complaint) Contusion Of BackContusion Of BackBackache NosBackache Nos 1 No Information Offic/outpt E&m Estab Mod-hi 2 [facility], [address], [place], [place], [address] , [place] tel: [phone] [facility] mouth/gum/l ip pain (chief complaint) No Information 1 Hernán Brown. [address], [address], [place], [address], [place]. tel: [phone] Offic/outpt E&m Estab Mod-hi 2 [facility], [address], [place], [place], [address] , [place] tel: [phone] [facility] mouth/gum/l ip pain (chief complaint) No Information 1 No Information Offic/outpt E&m Estab Mod-hi 2 [facility], [address], [place], [place], [address] , [place] tel: [phone] [facility] other (chief complaint) No Information Nov- 0- 0 No Information Offic/outpt E&m Estab Mod-hi 2 [facility], [address], [place], [place], [address] , tel: [phone] [facility] other (chief complaint) No Information 0 No Information Offic/outpt E&m Estab Mod-hi 2 [facility], [address], [place], [place], [address] , [place] tel: [phone] [facility] other (chief complaint) No Information 0 Hernán Brown. [address], [address], [place], [address], [place]. tel:[phone] Offic/outpt E&m Estab Mod-hi 2 [facility], [address], [place], [place], [address] , tel: [phone] [facility] other (chief complaint) No Information 0 No Information Offic/outpt E&m Estab Mod-hi 2 [facility], [address], [place], [place], [address] , tel: [phone] [facility] mouth/gum/l ip pain (chief complaint) No Information 0 No Information Offic/outpt E&m Estab Mod-hi 4 [facility], [address], [place], [place], [address] , [place] tel: [phone] [facility] mouth/gum/l ip pain (chief complaint) No Information 0 No Information Offic/outpt E&m Estab Mod-hi 4 [facility], [address], [place], [place], [address] , [facility]: [phone] [facility] mouth/gum/l ip pain (chief complaint) No Information 0 No Information Offic/outpt E&m Estab Mod-hi 4 [facility], [address], [place], [place], [address] , [place] tel: [phone] [facility] pain- not chest, back, neck (chief complaint) No Information 0 No Information Offic/outpt E&m Estab Mod-hi 4 [facility], [address], [place], [place], [address] , [place] tel: [phone] [facility] urinary tract problem (chief complaint)m outh/gum/li p pain (chief complaint) No Information 0 Dilip Arnoldin. [address], [place], [place], [address], [place]. tel:[phone] Offic/outpt E&m Estab Mod-hi 4 [facility], [address], [place], [place], [address] , [place] tel: [phone] [facility] burn (chief complaint) No Information 0 Hernán Brown. [address], [address], [place], [address], [place]. tel:[phone] Offic/outpt E&m Estab Mod-hi 4 [facility], [address], [place], [place], [address] , [place] tel: [phone] [facility] toothache (chief complaint) No Information 9 No Information Offic/outpt E&m Estab Mod-hi 4 [facility], [address], [place], [place], [address] , [place] tel: [phone] [facility] eye discomfort (chief complaint) No Information 9 No Information Offic/outpt E&m Estab Mod-hi 4 [facility], [address], [place], [place], [address] , [place] tel: [phone] [facility] eye discomfort (chief complaint) No Information 9 No Information Offic/outpt E&m Estab Mod-hi 2 [facility], [address], [place], [place], [address] , tel: [phone] [facility] pain (chief complaint) No Information 7 No Information Offic/outpt E&m Estab Mod-hi 2 [facility], [address], [place], [place], [address] , tel: [phone] [facility] UTI (chief complaint) No Information 7 No Information Referring Provider: Nate RUDOLPH, [address], [place], [address] . tel:[phone] Offic/outpt E&m Estab Mod-hi 4 [facility], [address], [place], [place], [address] , tel: [phone] [facility] ear discomfort (chief complaint) No Information 7 No Information Offic/outpt E&m Estab Mod-hi 4 [facility], [address], [place], [place], [address] , tel: [phone] [facility] sore throat (chief complaint) No Information 7 No Information Offic/outpt E&m Estab Mod-hi 2 [facility], [address], [place], [place], [address] , tel: [phone] [facility] COUGHING WITH MUCUS/ GREEN, B/L EARS ACHE X1WK (chief complaint) No Information 6 No Information Offic/outpt E&m Estab Mod-hi 2 [facility], [address], [place], [place], [address] , tel: [phone] [facility] R hand cuts/lip swollen (chief complaint) No Information 6 No Information Offic/outpt E&m [facility], [address], [place], [place], [address] , tel: [phone] [facility] finger injury (chief complaint) No Information 5 No Information Offic/outpt E&m New Mod Sever [facility], [address], [place], [place], [address] , [place] tel:[phone] [facility] No Information No Information Family History Family Member Type Diagnosis Age At Onset Father Problem (finding) Family history of hyper tension Mother Problem (finding) Cancer Father Problem (finding) Family history of coronary arteriosclerosis Payers Payer name Insurance type Covered green party ID Authoriza tion(s) No Information Social History Type Description Quantity Date Captured Comments Alcohol Use Details Unknown Caffeine Use Details Unknown Tobacco Use Status No Information Smoking Status No Information Sex Female Chief Complaint And Reason For Visit No Information Reason For Referral Reason For Referral No Information Plan Of Treatment Date Type Action Status Referral Ordered: Referrals: Emergency Medicine. Evaluate and treat Appointment date/timeframe: now ordered Referral Ordered: CULTURE URINE Appointment date/timeframe: today ordered History Of Present Illness Encounter Date Complaint History Of Prese nt Illness Chest pain The patient pres ents with a complaint of Chest pain. The symptoms began 3 weeks ago and began suddenly. The problem occurs every 5 minutes. The patient rates the severity of the chest pain as moderate to severe and the symptoms have worsened. The pain is in the mid sternum. The patient also complains of chest discomfort, dyspnea, fatigue and palpitations. The patient denies diaphoresis, nausea and vomiting. Relevant history for this patient includes family history of coronary artery disease but excludes excessive alcohol, diabetes, drug use, hyperlipidemia, hypertension, obesity, medication(s), personal history of coronary artery disease or recent travel. The symptoms are aggravated by exertion. The Chest pain is associated with dyspnea on exertion, lightheadedness and malaise. The patient denies any abdominal pain, anorexia, claudication, chronic cough, dependent edema, dysphagia, generalized weakness, headache, hemoptysis, myalgia, nocturia, nocturnal dyspnea, syncope or weight gain. Prior diagnostics/procedures that have not been performed CABG, heart catheterization, pacemaker or stress test. Additional information: c/o chest pain, sob x 3 weeks, worsening now, unable to walk 5 min without sob, h/o afib and taking meds but not helping. Functional Status Date Functional Assessmen t No Information Instructions Date Instruction Additional Infor adrian REFERRED TO ER AND F/U WITH [facility] Related to Paroxysmal A-fib Assessments Type Assessment Date No Information Patient Care Teams Name Effective Dates (start - stop) Status Members No Information
--- OUTSIDE RECORDS SUMMARY | 2024-03-29 19:00 | XMS_ITS | Continuity of Care Document ---
Author Organization [facility] Address [address] [address] [place] [address] Phone Care Team Providers Care Orthotic Finish Grinding Technician Name Role Phone Lidia CHAVEZ, Bud Unavailable Unavailable Advance Directives Directive Yes / No Effective Date File Name No Information Encounters Encounter Description Practice Location Reason(s) For Visit Diagnoses Date Provider Providers Copied on Encounter [facility], [address] [address], [place], [place], [id number], [place] tel:[phone] [facility] No Information Lidia Farrell. [address] [facility], [facility] [address], [place], [place], [id number] , [place]. tel:[phone] Family History Family Member Type Diagnosis Age At Onset No Information Payers Payer name Insurance type Covered constitution party ID Authoriza tion(s) No Information Social History Type Description Quantity Date Captured Comments Sex Female Smoking Status No Information Chief Complaint And Reason For Visit No Information Reason For Referral Reason For Referral No Information History Of Present Illness Encounter Date Complaint History Of Prese nt Illness No Information Functional Status Date Functional Assessmen t No Information Instructions Date Instruction Additional Infor mation No Information Assessments Type Assessment Date No Information Patient Care Teams Name Effective Dates (start - stop) Status Members No Information
--- OUTSIDE RECORDS SUMMARY | 2024-03-29 19:00 | XMS_ITS | Continuity of Care Document ---
Author Organization [facility] Address [address] [address] [place] [address] Phone Care Team Providers Care Movie Star Name Role Phone Lidia CHAVEZ, Bud Unavailable Unavailable Advance Directives Directive Yes / No Effective Date File Name No Information Encounters Encounter Description Practice Location Reason(s) For Visit Diagnoses Date Provider Providers Copied on Encounter [facility], [address] [address], [place], [place], [id number], [place] tel:[phone] [facility] No Information Lidia Farrell. [address] [facility], [facility] [address], [place], [place], [id number] , [place]. tel:[phone] Family History Family Member Type Diagnosis Age [...]
--- OUTSIDE RECORDS SUMMARY | 2024-05-31 23:30 | XMS_ITS | Continuity of Care Document ---
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 Name Role Phone No Information Unavailable Unavailable Allergies, Adverse Reactions, Alerts Substance Reaction Status Criticality copper Active No Information Medications Medication Instructions Dosage Effective Dates (start - stop) Status Comments Abilify 5 mg tablet take 1 tablet by oral route every day 5 MG - Active buspirone 30 mg tablet take 1 tablet by oral route 2 times every day 30 MG - Active Lexapro 20 mg tablet take 1 tablet by oral route every day 20 MG - Active ferrous sulfate 325 mg (65 mg iron) tablet take 1 tablet by oral route every day 325 MG - Active Synthroid 50 mcg tablet take 1 tablet by oral route every day 50 MCG - Active ondansetron [address] 2 tablet by translingual route 2 times every day on top of the tongue where they will dissolve, then swallow 8 MG - Active ROXICODONE (unknown strength) take 1 tablet by oral route every 6 hours Not Available - Active Protonix 40 mg tablet,delayed release take 1 tablet by oral route every day 40 MG - Active Miralax 17 gram oral powder packet - Active INDERAL XL (unknown strength) take 1 capsule by oral route every day at bedtime Not Available - Active Seroquel 50 mg tablet take 1 tablet by oral route 2 times every day 50 MG - Active senna 8.6 mg capsule take 2 capsule by oral route every day 17.2 MG - Active Carafate 1 gram tablet take 1 tablet by oral route 4 times every day on an empty stomach 1 hour before meals and at bedtime 1 G - Active Procedures Procedure Date Offic/outpt E&m Estab Mod-hi 2 25 Ugi Endo; W/balloon Dilat Esop Ugi Endo; W/endo Ultrasound Ex Esophageal Motility Study Subsqt Hosp-da E&m Minr Compl 5 Offic/outpt E&m Estab Mod-hi 4 25 Init Hosp-da E&m Mod Severity 5 Subsqt Hosp-da E&m Minr Compl 5 Subsqt Hosp-da E&m Minr Compl 5 Init Hosp-da E&m Mod Severity 5 Ugi Endo; Dx W/wo Collec Specm Advance Directives Directive Yes / No Effective Date File Name No Information Encounters Encounter Description Practice Location Reason(s) For Visit Diagnoses Date Provider Providers Copied on Encounter [facility] [address] [address], [place], [place], [id number], [place] tel:[phone] No Information No Information Offic/outpt E&m Estab Mod-hi 2 [facility] [address] [address], [place], [id number], [place] tel:[phone] [facility] GI Symptoms or Concerns (chief complaint) Dysphagia, unspecified typeGastroeso phageal reflux disease with esophagitis and hemorrhageHia delonte herniaAltered bowel habits 5 Misael Roberson. [address] [facility] [facility] [address], [place], [place], [id number], [place]. tel:[phone] Referring Provider: Referral Self, USE FOR SELF REFERRALS. [facility], [address] [address], [place], [id number], [place] tel:[phone] [facility] No Information 5 Janeth Salgado. [address] [facility], [facility] [address], [place], [place], [id number], [place]. tel:[phone] Referring Provider: [place], [address] [place] [address] [address], [place], [address] . tel:[phone] [facility], [address] [address], [place], [id number], [place] tel:[phone] [facility] Unspecified deficiency anemia 5 Helen Mendieta. [address] [facility], [facility] [address], [place], [place], [address], [place]. tel:[phone] Referring Provider: Chelsea Dye [facility], [address] [place] [address], [address]. tel:[phone] Subsqt Hosp-da E&m Minr Compl [facility], [address] [address], [place], [id number], [place] tel:[phone] [facility] No Information 5 Armen Hobbs. [address] [facility], [facility] [address], [place], [place], [address], [place]. tel:[phone] Referring Provider: Faby RUDOLPH, [address] [place] [address] [address], [place], [address] . tel:[phone] Offic/outpt E&m Estab Mod-hi 4 [facility], [address] [address], [place], [id number], [place] tel:[phone] [facility] GI Symptoms or Concerns (chief complaint) Dilated cbd, acquiredEsoph agitisDysphag ia, unspecified typeChest pain, unspecified typeHeartburn Hematemesis with nauseaEpigast judah abdominal painAltered bowel habitsBlood in stoolAnemia, unspecified type 5 Itzel Callege. [address] [facility], [place], [place], [id number], [place]. tel:[phone] Referring Provider: Referral Self, USE FOR SELF REFERRALS. Init Hosp-da E&m Mod Severity [facility], [address] [address], [place], [place], [id number], [place] tel:[phone] [facility] No Information 5 Lidia Farrell. [address] [facility], [address], [place], [place], [address], [place]. tel:[phone] Referring Provider: Chelsea Dye [facility], [address] [place] [address], [address]. tel:[phone] [facility], [address] [address], [place], [place], [address], [place] tel:[phone] [facility] EsophagitisDi lated cbd, acquired 5 Yaakov Wilson. [address] [facility], [facility] [address], [place], [place], [id number], [place]. tel:[phone] Subsqt Hosp-da E&m Minr Compl [facility], [address] [address], [place], [place], [address], [place] tel:[phone] [facility] No Information 5 Jorge Quintero. [address] [facility], [facility] [address], [place], [place], [id number], [place]. tel:[phone] Referring Provider: Ingrid Potts, [address] [facility] [address], [place], [address] . tel:[phone] Subsqt Hosp-da E&m Minr Compl [facility], [address] [address], [place], [place], [address], [place] tel:[phone] [facility] No Information 5 Yaakov Wilson. [address] [facility], [facility] [address], [place], [place], [address], [place]. tel:[phone] Referring Provider: Katie Aguillon, [address] [facility] [address], [place], [address] . tel:[phone] [facility], [address] [address], [place], [place], [address], [place] tel:[phone] [facility] No Information 5 Min MD Basurto. [address] [facility], [address], [place], [place], [address], [place]. tel:[phone] Referring Provider: Chelsea Dye [facility], [address] [place] [address], [address]. tel:[phone] Family History Family Member Type Diagnosis Age At Onset No Information Payers Payer name Insurance type Covered republican ID Authoriza tion(s) No Information Social History Type Description Quantity Date Captured Comments Sex Female Smoking Status No Information Chief Complaint And Reason For Visit No Information Reason For Referral Reason For Referral No Information Plan Of Treatment Date Type Action Status Referral Ordered: EUS Appointment date/timeframe: 05/22/2024 ordered Referral Ordered: EGD With Dilation Appointment date/timeframe: 05/22/2024 ordered History Of Present Illness Encounter Date Complaint History Of Prese nt Illness GI Symptoms or Concerns This is a 69-year-old female who presents to clinic today for follow-up regarding history of GERD with esophagitis and bleeding, and dilated CBD. Patient was last seen in our clinic on 03/30/2024. Please refer to that clinic note for further details. In brief, patient has been having symptoms of abdominal pain, nausea, vomiting and dysphagia symptoms recently. She was seen in the emergency department and was found to have evidence of esophagitis, cholelithiasis, gallbladder wall thickening and intra and extrahepatic biliary dilatation on cross-sectional imaging. She also had symptoms of melena. She was eventually admitted to [facility] on 03/17/2024 with acute on chronic anemia, melena. EGD on 03/17/2024 showed severe esophagitis with spontaneous bleeding in the distal esophagus, medium size hiatal hernia, thought likely underlying long segment of 's. She was started on Protonix twice daily and Carafate 4 times daily. MRCP was also recommended to evaluate CBD dilation seen on cross-sectional imaging but she was unable to complete due to multiple metal hair clips. She ultimately underwent laparoscopic cholecystectomy with cholangiogram on 03/19/2024.At time of last clinic visit, she was endorsing significant dysphagia symptoms and was recommended to go to the ED again. She then had an upper endoscopy done on 03/31/2024 and was found to have LA grade D esophagitis and large hiatal hernia. Pathology reviewed ulcerative esophagitis with no specific features. There were no signs of neoplasia. She then had an esophageal manometry on 05/17/2024 which showed essentially normal motility but was hard to interpret due to presence of large hiatal hernia.She also had an upper endoscopic ultrasound on 05/19/[address] Griffiths and. She was found to have a benign-appearing esophageal stenosis at the level of the GE junction. This was dilated to 18 mm with balloon dilator. She also had a large superficial ulcer in the mid esophagus and LA grade C esophagitis. EUS otherwise showed dilation in the CBD without any stones or sludge. Plan to repeat EGD in 2-month.Today, she tells me that she is already scheduled for hiatal hernia surgery tomorrow. She is still taking Protonix twice daily and Carafate 4 times daily. She still experiences heartburn, chest pain, nausea and epigastric pain symptoms. She denies any signs of melena, hematochezia, or hematemesis. She did stop taking ibuprofen a few weeks ago. She denies unintentional weight loss. Patient states she was currently taking senna and MiraLax daily for a bowel regimen.I spent 16 minutes with patient [id number] during today's encounter, and additional 14 minutes were used for chart/records review, orders, documentation and chart completion. GI Symptoms or Concerns This is a 69-year-old female who is here for evaluation related to a esophagitis and dilated CBD. In records available to me today, patient has been seen in the emergency department for reports of abdominal pain and vomiting twice over the last month including on 03/06/2024 and 03/11/2024. Previous imaging completed on 03/12/2024 includes abdominal ultrasound and CT scan of abdomen and pelvis. Abdominal ultrasound revealed cholelithiasis, gallbladder wall thickening, intrahepatic and extrahepatic biliary dilation, findings concerning for distal biliary obstruction. CT of abdomen and pelvis with IV contrast revealed cholelithiasis, gallbladder wall thickening and trace adjacent fluid along with new intrahepatic and increased extrahepatic biliary dilation findings concerning for possible choledocholithiasis with or without acute cholecystitis, severe wall thickening of the partially visualized esophagus, findings concerning for esophagitis, additional chronic findings noted. She had a ER clinic follow up visit on 03/14/2024. The patient was transferred to the emergency department during clinic visit on 03/14/2024 for abdominal pain, history of esophageal stricture, prior hiatal hernia surgery, vomiting blood, black stool here in clinic, not taking food or fluids and cholecystitis or CBD dilation. In records appears patient was initially seen in local [place] ER following clinic visit on 03/14/24 and was transferred to [facility] on 03/17/24 for hospital admission. Patient was admitted to [facility] on 03/17/2024 with acute on chronic anemia likely to upper GI bleed. GI was consulted on admission. Patient had EGD on 03/17/2024 and was found to have severe esophagitis with spontaneous bleeding in the distal esophagus, medium size hiatal hernia, thought likely underlying long segment of 's. The patient was recommended to start twice daily PPI and liquid Carafate and repeat EGD in 2 months to check on healing and perform biopsies. Initial plan was for MRCP to evaluate CBD dilation seen on abdominal ultrasound, patient was unable to complete MRI due to multiple metal hair clips for hair extensions. General surgery was consulted for consideration of cholecystectomy, she ultimately underwent laparoscopic cholecystectomy with cholangiogram on 03/19/2024. The patient was discharged to home on 03/20/2024 with recommendation to follow-up with GI for consideration of EUS and ERCP in 6 weeks by [facility]. History of Present Illness: Today, patient reports minimal improvement in gastrointestinal symptoms since being discharged from the hospital on 03/20/2024. Per the patient since discharge from the hospital despite taking pantoprazole 40mg twice daily and sucralfate 4 times daily she is experiencing daily food, liquid, and pill dysphagia that can result in episodes of choking. She also endorses daily heartburn, chest pain, nausea, and epigastric pain that she describes as a burning sensation. The patient does also endorse she has been experiencing regular hematemesis. The patient notes because she was vomiting up blood, the blood thinner she was taking for her atrial fibrillation was stopped. She is currently having a bowel movement every 1 to 2 days, [place] type 1 or 6 stools. She does endorse recent blood in her stools and that her stools also appear as dark coffee grounds. She denies unintentional weight loss. Patient states she was currently taking senna and MiraLax daily for a bowel regimen.The patient states she was seen by hematology yesterday due to her anemia, as she was reportedly taking oral iron supplementation with no improvement in anemia. The patient states she underwent her first iron infusion recently and continues on her daily oral iron supplementation. Upon review of patients [facility] chart she had blood work performed by her PCP on 03/27/2024 that revealed hemoglobin of 10.1, MCV of 67, MCH of 28, MCHC of 29.8, RDW of 21, absolute neutrophils of 1.5, and absolute eosinophils of 0.6. Hemoglobin representing improvement from last check in [facility] chart which was done on 03/19/2024 revealing hemoglobin of 8.6 and MCV of 68.Reportedly the patient's last colonoscopy was 7 to 8 years ago in [place], I unfortunately do not have those records at this time. As noted above most recent EGD was on 03/17/2024 during hospitalization. Upon further review of records available to me today it does note she underwent EGD on 09/16/2023 which showed esophagitis and hiatal hernia. Patient noted to be on Protonix at that time and was recommended to repeat EGD in 3 months and add Carafate. Her Eliquis was noted to be discontinued at the time of her last upper endoscopy on 09/16/2023.Previous gastrointestinal workup:03/17/2024 EGD-esophagitis with bleeding found in the lower third of the esophagus, medium size hiatal hernia, normal duodenum. Thought it was likely there was underlying long segment 's esophagus. Patient recommended to do twice daily PPI and add liquid Carafate. Repeat EGD in 2 months. Functional Status Date Functional Assessmen t No Information Instructions Date Instruction Additional Infor adrian It was a pleasure me eting you today, as we discussed in clinic:I will review your endoscopy report, and any pathology results, if available from last Wednesday.Please proceed with the scheduled surgery tomorrow to repair your hiatal hernia.In the meantime, continue current medications. Avoid all NSAIDs such as ibuprofen, Motrin, Advil, naproxen.Follow-up in clinic after the surgery in 4 to 6 weeks. Related to Dysphagia, unspecified type It was nice meeting you today, Мария! As we discussed -I recommend proceeding to the emergency department for hospital admission due to reports of active hematemesis, chest pain, dysphagia, epigastric, pain, nausea, and blood in the stool. I will call the emergency department at [facility] to let them know you are coming. -Please follow up with an MD here at [facility] following your discharge from the hospital HOW TO REACH NVYou can reach me by sending a message through your patient portal or calling my patient coordinator at [phone] Related to Dilated cbd, acquired Assessments Type Assessment Date No Information Patient Care Teams Name Effective Dates (start - stop) Status Members No Information
--- OUTSIDE RECORDS SUMMARY | 2024-11-03 19:51 | XMS_ITS | Clinical Summary ---
Author Organization [facility] Address [address] [facility] 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 Active [place]-3 Fatty Acids (FISH OIL PO) Take by [...] mg by mouth 2 times daily. 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 Gender Identity Not on file Sexual [...] MEDICARE ANNUAL WELLNESS VISIT 01/14/2021 COVID-19 VACCINE (1 - 2023-2 5 season) 2023 PHQ-2 (once per calendar year) 2024 INFLUENZA VACCINE (#1) 2024 RSV VACCINE (1 - 1-dose 75+ series) 01/14/2031 HPV VACCINE (No Doses Required) Completed MENINGITIS VACCINE Aged Out No longer eligible based on patient's age to complete this topic Insurance [place]ICAID [place] [employer] MEDICARE ADVANTAGE [place]ID [place] [employer] [place]VANTAGE Care Teams Field Artillery Cannoneer Relationship Specialty Start Date End Date Chelsea Dye NP [address] [place] [address] [place] [address] PCP - General Nurse Practitioner 04/25/24
[2024-11-03 19:57] VITALS: BP 101/56; PULSE 66; RESP 16; TEMP 37.3; O2SAT 94
--- NOTE | 2024-11-03 20:13 | ED.ANXIETY ---
HPI - Anxiety General Date Seen: 11/03/24 Chief Complaint: Anxiety Stated Complaint: anxiety Time Seen by Provider: 11/03/24 19:50 Source: patient Mode of arrival: EMS Limitations: no limitations History of Present Illness HPI narrative: Patient is a 69-year-old female presenting to the emergency department for anxiety. She is brought in by EMS. States she has been dealing with anxiety for several years and head episode of feeling extremely anxious today. She states she lives with her fiance and his daughter and they got in an argument. This caused her to have a panic attack and she called EMS. She states she was feeling like she could breathe during it. Has been taking her Seroquel as directed. Denies any suicidal homicidal thoughts. Does not have any thoughts of self-harm. Denies fevers, chills, chest pain, headache, lightheadedness, dizziness, weakness, numbness, abdominal pain. No other concerns noted at this time. Related Data Home Medications ?Medication ?Instructions ?Recorded ?Confirmed buspirone PO BID 03/03/24 levothyroxine 50 mcg capsule 50 mcg PO DAILY 03/03/24 08/14/24 aluminum-mag hydroxide-simethicone ml 08/14/24 200 mg-200 mg-20 mg/5 mL oral susp (Antacid-Antigas) carboxymethylcellulose sodium 0.5 drp ophthalmic (eye) 08/14/24 % eye drops (Refresh Tears) ondansetron 4 mg disintegrating 4 mg PO Q8H PRN 08/14/24 08/14/24 tablet pantoprazole 40 mg tablet,delayed 40 mg PO BID 08/14/24 08/14/24 release paroxetine HCl 10 mg tablet PO 08/14/24 quetiapine 25 mg tablet mg PO 08/14/24 sennosides 8.6 mg tablet (senna) 17.2 mg PO DAILY 08/14/24 08/14/24 sodium chloride 0.65 % nasal spray intranasal 08/14/24 aerosol (Deep Sea Nasal) sucralfate 100 mg/mL oral ml PO 08/14/24 suspension Allergies Allergy/AdvReac Type Severity Reaction Status Date / Time copper Allergy Mild rash Verified 08/14/24 08:49 rubén Allergy Mild rash Uncoded 03/03/24 15:34 Review of Systems Status of ROS: Reports: 10 or more systems reviewed and unremarkable except as noted in History and below [facility] Social History Smoking Status: Never smoker Do you use any of these nicotine containing products: None How often do you have a drink containing alcohol: never AUDIT-C Alcohol total score: 0 Non-prescribed substance use: denies use Exam Narrative: Exam Narrative: Const: Well-nourished, Well-developed, in mild distress Eyes: PERRL, no conjunctival injection, and symmetrical lids HENT: Atraumatic external nose and ears. Moist mucous membranes. Neck: Symmetric, trachea midline, No thyromegaly. CVS: RRR, No murmurs or gallops. Peripheral pulses 2+ and equal in all extremities RESP: Unlabored respiratory effort. Clear to auscultation bilaterally. GI: Nontender/Nondistended, No rebound or guarding. MSK:Extremities w/o deformity, Normal Active ROM Skin: Warm, Dry. No rashes or lesions. Neuro: Normal Muscle tone, No focal neurological deficits. Psych: Awake, Alert, & Oriented x3. Appears mildly anxious Const: Vital Signs, click to edit/add: Vital Signs - 24 hr 11/03/24 19:57 Temperature 99.1 F Pulse Rate [Pulse Oximeter] 66 Respiratory Rate 16 Blood Pressure [Ri ght Upper Arm] 101/56 L Pulse Oximetry 94 Oxygen Delivery Me thod Room Air Course Vital Signs Vital signs: Initial Vital Signs Temperature 99.1 F 11/03/24 19:57 Temperature Source Temporal Artery Scan 11/03/24 19:57 Pulse Rate 66 11/03/24 19:57 Respiratory Rate 16 11/03/24 19:57 Blood Pressure 101/56 L 11/03/24 19:57 Blood Pressure Mean 71 11/03/24 19:57 Blood Pressure Position Semi-Fowlers 11/03/24 19:57 Pulse Oximetry 94 11/03/24 19:57 Oxygen Delivery Method Room Air 11/03/24 19:57 Vital Signs Temperature 99.1 F 11/03/24 19:57 Pulse Rate 66 11/03/24 19:57 Respiratory Rate 16 11/03/24 19:57 Blood Pressure 101/56 L 11/03/24 19:57 Pulse Oximetry 94 11/03/24 19:57 Oxygen Delivery Method Room Air 11/03/24 19:57 Temperature 99.1 F 11/03/24 19:57 Pulse Rate 66 11/03/24 19:57 Respiratory Rate 16 11/03/24 19:57 Blood Pressure 101/56 L 11/03/24 19:57 Pulse Oximetry 94 11/03/24 19:57 Oxygen Delivery Method Room Air 11/03/24 19:57 Medications Administered Medications: Discontinued Medications Generic Name Dose Route Start Last Admin Trade Name Micheal WARNER Reason Stop Dose Admin Hydroxyzine Pamoate 25 mg 11/03/24 20:13 11/03/24 20:30 Hydroxyzine Pamoate 25 Mg Capsule PO 11/03/24 20:14 25 mg ONCE ONE Administration Lorazepam 1 mg 11/03/24 21:03 11/03/24 21:10 Lorazepam 1 Mg Tablet PO 11/03/24 21:04 1 mg ONCE ONE Administration MDM - Anxiety MDM Narrative Medical decision making narrative: Patient is a 69-year-old female presenting for anxiety. She states she feels safe at home is having trouble dealing with her anxiety. Gave her some hydroxyzine for anxiety. Do not believe lab work is necessary. She was still feeling anxious after hydroxyzine so I did give her some Ativan. Nursing staff notes the patient is throwing stuff around the room complaining of her anxiety. When I spoke to the patient she states she wants to spend the night due to anxiety. She states she feels safe at home it is a safe place to be but states see is concerned about the anxiety. Explained to her that there is nothing to keep her in the ED for and that she will be discharged. Discharge Plan Discharge Clinical Impression: Acute anxiety Patient Disposition: Home, Self-Care Condition: Stable Instructions: Anxiety (ED) Additional Instructions: Follow-up with your primary care provider for your anxiety. Prescriptions: No Action quetiapine 25 mg tablet PO sennosides [senna] 8.6 mg tablet 17.2 mg PO DAILY paroxetine HCl 10 mg tablet PO sucralfate 100 mg/mL suspension PO carboxymethylcellulose sodium [Refresh Tears] 0.5 % drops ophthalmic (eye) pantoprazole 40 mg tablet,delayed release (DR/EC) 40 mg PO BID alum-mag hydroxide-simeth [Antacid-Antigas] 200-200-20 mg/5 mL suspension Patient Comments: [NO ORIGINAL SIG] ondansetron 4 mg tablet,disintegrating 4 mg PO Q8H PRN Deep Sea Nasal 0.65 % aerosol,spray INTRANASAL Patient Comments: [NO ORIGINAL SIG] levothyroxine 50 mcg capsule 50 mcg PO DAILY buspirone PO BID Follow Up/Referrals: Provider,Not a Local [Primary Care Provider, Family Practice] Stand Alone Forms: [facility] [employer] Info Instructions
--- OUTSIDE RECORDS SUMMARY | 2024-11-03 20:21 | XMS_ITS | Clinical Summary ---
Author Organization [employer] [facility] Address [address] [place] [address] Care Team Providers Care Photographic Aide Name Role Phone Chelsea Dye NP Primary Care Provider [phone] Nancy Lucero MECHANICAL FITTER Unavailable Allergies Active Allergy Reactions Criticality Noted Date Comments Copper Rash,Fever 01/04/2024 Medications pantoprazole (PROTONIX) 40 mg delayed-release tabletIndications:E sophagitis determined by endoscopy Take 1 Tablet (40 mg) by mouth two times daily before meals. 180 Tablet 3 5 Active sennosides 8.6 mg tabletIndications:C onstipation, unspecified constipation type Take 2 Tablets (17.2 mg) by mouth once daily if needed for Constipatio n. 180 Tablet 1 5 Active bxuff-[id number]-[id number]-epa-dpa -fish oil 1,050-1,200 mg cap capsule Take 1 Capsule by mouth once daily. 5 Active zinc gluconate 50 mg tablet Take 1 Tablet (50 mg) by mouth once daily. 5 Active cyanocobalamin (Vitamin B-12) 1,000 mcg tablet Take 1 Tablet (1,000 mcg) by mouth once daily. 5 Active Coenzyme Q10 10 mg cap Take 1 Capsule (10 mg) by mouth once daily. 5 Active carboxymethylcellul ose 0.5% (Refresh Tears) 0.5 % drop ophthalmic dropsIndications:Dr y eye of left side,Dry eye of right side Place 1-2 Drops into both eyes every 2 hours if needed for Dry Eyes (dry itchy eyes). 30 mL 1 5 Active levothyroxine (SYNTHROID) 50 mcg tabletIndications:A cquired hypothyroidism Take 1 Tablet (50 mcg) by mouth once daily. 90 Tablet 2 5 Active busPIRone (BUSPAR) 15 mg tabletIndications:G eneralized anxiety disorder with panic attacks Take 1 Tablet (15 mg) by mouth two times daily. 60 Tablet 1 5 Active QUEtiapine (SEROQUEL) 25 mg tabletIndications:G eneralized anxiety disorder with panic attacks,Mild episode of recurrent major depressive disorder,Insomnia, unspecified type Take 1 tablet -25 mg by mouth in the morning as needed for acute anxiety and take 2 tabs (50) mg at bedtime 90 Tablet 2 5 Active PARoxetine (PAXIL) 40 mg tabletIndications:G eneralized anxiety disorder with panic attacks,Mild episode of recurrent major depressive disorder Take 1 Tablet (40 mg) by mouth once daily in the morning. 90 Tablet 5 Active hydrOXYzine HCL (ATARAX) 25 mg tabletIndications:A nxiety Take 1 Tablet (25 mg) by mouth every 8 hours if needed for Anxiety. 15 Tablet 5 Active cephalexin 500 mg capsuleIndications: Acute cystitis without hematuria Take 1 Capsule (500 mg) by mouth three times daily for 7 days. 21 Capsule 5 10/26/19 Active Problems Problem Noted Date Diagnosed Date [...] encounter dx: 03/27/24: Support OP Encounter - [facility] 03/27/24: Appointment - [facility] 01/04/24: Appointment - [facility] 09/15/23: Hospital Encounter - Med/Surg, [facility] SCS 4 Oncology (from [facility]) Recent notes: 07/18/24: Consults - [facility] Consult Note by Keyon Sullivan, ... [+] ? Bipolar depression (HC) 07/18/24: [...] Encounters Date Type Department Care Team Description 11/03/2024 Nurse Triage [facility] [address] [facility] [place] [address] Lily Silva NP Mental Health Issue 10/18/2024 3:55 PM CDT Office Visit [facility] [address] [place] [address] Madyson Sepulveda NP Anxiety; UTI 10/18/2024 Travel 10/03/2024 1:00 PM CDT Office Visit [facility] [address] [place] [address] Zhanna Jones NP Follow Up (Patient completed OT, brought in forms for provider.) 10/02/2024 12:58 PM CDT - 10/02/2024 11:59 PM CDT Hospital Encounter [facility] [address] [place] [address] Iron deficiency anemia due to chronic blood loss (Primary Dx) 10/02/2024 Travel 09/29/2024 1:32 PM CDT - 09/29/2024 11:59 PM CDT Hospital Encounter [facility] [address] [place] [address] Chelsea Dye, Siomara Sarabia, OT History of confusion; Mild cognitive impairment of uncertain or unknown etiology 09/29/2024 12:17 PM CDT - 09/29/2024 1:31 PM CDT Hospital Encounter [facility] [address] [place] [address] Iron deficiency anemia due to chronic blood loss (Primary Dx) 09/29/2024 Travel 09/29/2024 Refill [facility] [address] [facility] [place] [address] Lily Silva NP Refill Request (Quetiapine) 09/27/2024 2:54 PM CDT - 09/27/2024 11:59 PM CDT Hospital Encounter [facility] [address] [place] [address] Iron deficiency anemia due to chronic blood loss (Primary Dx) 09/27/2024 Travel 09/25/2024 1:00 PM CDT - 09/25/2024 11:59 PM CDT Hospital Encounter [facility] [address] [address] Iron deficiency anemia due to chronic blood loss (Primary Dx) 09/25/[address] [facility] [address] [facility] [place] [address] Peyton Greenfield, OD Form 09/25/2024 Travel 09/22/2024 3:00 PM CDT Office Visit [facility] Eye Services [address] [address] Peyton Greenfield, OD Eye Exam 09/22/2024 11:57 AM CDT - 09/22/2024 11:59 PM CDT Hospital Encounter [facility] [address] [place] [address] Nancy Lucero, MECHANICAL FITTER Iron deficiency anemia due to chronic blood loss (Primary Dx) 09/22/2024 Travel 09/20/2024 3:15 PM CDT Office Visit [facility] [address] [place] [address] Nancy Lucero, MECHANICAL FITTER Follow Up (Iron deficiency anemia) 09/20/2024 Travel 09/19/2024 2:00 PM CDT Office Visit [facility] [address] [place] [address] Lily Silva NP Medication Management; Follow Up 09/18/2024 2:18 PM CDT - 09/18/2024 11:59 PM CDT Hospital Encounter [facility] [address] [address] Iron deficiency anemia, unspecified iron deficiency anemia type [D50.9] 09/18/2024 Travel 09/08/[address] [address] Chelsea Dye NP Results 09/06/2024 3:10 PM CDT Office Visit [address] [address] Chelsea Dye NP Follow Up (Bladder infection); Form (Needs a form filled out for driving and talk about hearing and vision ) 09/06/2024 Travel 09/05/[address] [address] Chelsea Dye NP Refill Request (Escitalopram Oxalate 20mg tab ) 09/04/[address] [address] Chelsea Dye NP Refill Request (Escitalopram Oxalate) 08/23/2024 Telephone [facility] [address] [place] [address] Lily Silva NP Form 08/21/2024 3:20 PM CDT Office Visit [facility] [address] [place] [phone] Ninfa Benjamin NP Dysuria 08/21/2024 Travel 08/15/2024 Telephone [facility] [address] [place] [address] Lily Silva NP Follow Up 08/14/2024 7:30 AM CDT Office Visit [facility] [address] [place] [address] Lily Silva NP Medication Management (Very tired/Mood is good, anxiety is good, sleep is good/Hospital took her off Buspar approx 1.5 month ago) 08/14/2024 Orders Only [facility] Scanner 1 scan: (1-Ord) 08/14/2024 08/14/2024 Orders Only [facility] Scanner 1 scan: (1-Ord) [facility], 08/14/2024 08/14/2024 Travel 08/07/2024 Telephone [facility] [address] [place] [address] Lily Silva NP Concerns (Tired/) 08/07/2024 Telephone [facility] [address] [place] [address] Netta Dawson MD Error-please disregard from Last 3 Months Immunizations Immunization Administration [...] PHQ-2 Answer Date Recorded PHQ-2 TOTAL SCORE 2 09/19/2024 Social Connections Answer Date Recorded Do you [...] Sex Assigned at Female 03/14/2024 1:48 PM LOAN COLLECTOR Legal Sex Female 1:31 PM CDT Gender Identity Female 03/14/2024 1:48 PM LOAN COLLECTOR Sexual Orientation Straight 05/06/2024 5: 03 PM LOAN COLLECTOR Occupation Industry Job Start Date Job End Date Not on file Not on file Not on file Not on file Obstetrics History Last Filed Vital Signs Vital Sign Reading Time Taken Comments Blood Pressure 131/72 10/18/2024 3:57 PM CDT Pulse 61 10/18/2024 3:57 PM CDT Temperature 36.6 C (97.9 F) 10/18/2024 3:57 PM CDT Respiratory Rate 16 10/18/2024 3:57 PM CDT Oxygen Saturation 97% 10/18/2024 3:57 PM CDT Inhaled Oxygen Concentration - - Weight 68.9 kg (152 lb) 10/18/2024 3:57 PM CDT Height 167.6 cm (5' 6) 07/25/2024 2:48 PM CDT Body Mass Index 24.53 07/25/2024 2:48 PM CDT Plan of Treatment Upcoming Encounters Date Type Department Care Team (Late st Contact Info) Description 11/06/2024 2:00 PM CDT Office Visit [facility] [address] [place] [address] Lily Silva, ARNOLDO [address] [place] [address] 12/06/2024 12:45 PM CDT Office Visit [facility] [address] [place] [address] Nancy Pedersen, Saqib, LP [address] [place] [address] 12/18/2024 3:00 PM CDT Appointment [facility] [address] [place] [address] 12/20/2024 3:45 PM CDT Office Visit [facility] [address] [facility] [place] [phone] Nancy Lucero, MECHANICAL FITTER [address] [place], [place] [id number] Health Maintenance Due Date Last Done Comments Tetanus booster 01/14/1967 Colonoscopy through age 75 01/14/2001 Zoster (shingles) series for age 50+ (1 of 2) 01/14/2006 RSV vaccine for adults or (1 - Risk 60-74 years 1-dose series) 2016 DEXA/DXA scan for age 65+ 01/14/2021 COVID-19 vaccine series ( season) 2024 Influenza Vaccine (#1) 2024 BMI (ht and wt on same day) for age 18+ 07/25/2025 07/25/2024, 05/18/2024, 04/13/2024, Additional history exists Medicare Wellness for age 65+ 07/26/2025 07/25/2024 Depression screening for age 12+ 09/20/2025 09/20/2024, 09/19/2024, 08/14/2024, Additional history exists Lipids for age 45-75 07/25/2029 07/25/2024 Hepatitis C screening for age 18-79 Completed 07/25/2024 Pneumococcal series for age 50+ Completed 07/25/2024 Hepatitis B series for 19+ Aged Out N o longer eligible based on patient's age to complete this topic Mammogram for age 45-75 Discontinued Procedures Procedure Name Priority Date/Time Associated Diagnosis Comments URINALYSIS MICROSCOPIC STAT 10/18/2024 4:03 PM CDT Dysuria URINE CULTURE Routine 10/18/2024 4:03 PM CDT Dysuria UA W/ SEDIMENT EXAM REFLEXED PER CRITERIA STAT 10/18/2024 4:03 PM CDT Dysuria CBC WITH AUTO DIFFERENTIAL Timed 09/18/2024 2:27 PM CDT Iron deficiency anemia, unspecified iron deficiency anemia type [D50.9] IRON PLUS IRON BINDING CAP Today 09/18/2024 2:27 PM CDT Iron deficiency anemia, unspecified iron deficiency anemia type [D50.9] FERRITIN Today 09/18/2024 2:27 PM CDT Iron deficiency anemia, unspecified iron deficiency anemia type [D50.9] CBC WITH AUTO DIFFERENTIAL Today 09/18/2024 2:27 PM CDT Iron deficiency anemia, unspecified iron deficiency anemia type [D50.9] URINALYSIS MICROSCOPIC STAT 09/06/2024 4:46 PM CDT Urinary urgency URINE CULTURE STAT 09/06/2024 4:46 PM CDT Urinary urgency UA W/ SEDIMENT EXAM REFLEXED PER CRITERIA STAT 09/06/2024 4:46 PM CDT Urinary urgency URINALYSIS MICROSCOPIC STAT 08/21/2024 3:50 PM CDT Dysuria URINE CULTURE Routine 08/21/2024 3:50 PM CDT Dysuria UA W/ SEDIMENT EXAM REFLEXED PER CRITERIA STAT 08/21/2024 3:50 PM CDT Dysuria SCAN-ELECTROCARDIOGR AM EKG 08/14/2024 12:00 AM CDT SCAN-LABORATORY REPORT 08/14/2024 12:00 AM CDT ANTI HCV Routine 07/25/2024 4:01 PM CDT Encounter for hepatitis C screening test for low risk patient LIPID PANEL W REFLEX MEASURED LDL Routine 07/25/2024 4:01 PM CDT Screening for cardiovascular condition from Last 3 Months or Most Recently Relevant to Health Maintenance Results * (ABNORMAL) URINALYSIS MICROSCOPIC (10/18/2024 4:03 PM CDT) Only the most recent of3 resultswithin the time period is included. RBC None Seen 0-2, None Seen /HPF 10/18/2024 4:53 PM CDT [facility] WBC 6-10(A) 0-2, 3-5, None Seen /HPF 10/18/2024 4:53 PM CDT [facility] BACTERIA Many(A) None Seen, Rare, Few Bacteria/ HPF 10/18/2024 4:53 PM CDT [facility] EPITHELIAL CELLS Few None Seen, Few Epi/HPF 10/18/2024 4:53 PM CDT [facility] Urine URINE SPECIMEN / Unknown Non-Blood / Unknown 10/18/2024 4:03 PM CDT 10/18/2024 4:17 PM CDT us Ninfa Benjamin NP URINE Final Result [facility] [address] [place] [address] * (ABNORMAL) URINE CULTURE (10/18/2024 4:03 PM CDT) Only the most recent of3 resultswithin the time period is included. CULTURE RESULT(A) 10/21/2024 7:21 AM CDT [facility] CULTURE >100,000 CFU/mL Klebsiella pneumoniae 10/21/2024 7:21 AM CDT [facility] Urine URINE SPECIMEN / Unknown Non-Blood / Unknown 10/18/2024 4:03 PM CDT 10/18/2024 4:17 PM CDT Narrative Organism Antibiotic Method Susceptibility Klebsiella pneumoniae TRIMETHOPRIM/SULF <=1/19: S Klebsiella pneumoniae AMPICILLIN >=32: R Klebsiella [...] S Klebsiella pneumoniae NITROFURANTOIN 128: R us Ninfa Benjamin NP MICROBIOLOGY Final Result [facility] [address] [place] [address], [place] * (ABNORMAL) UA W/ SEDIMENT EXAM REFLEXED PER CRITERIA (10/18/2024 4:03 PM CDT) Only the most recent of3 resultswithin the time period is included. COLOR Yellow Yellow Color 10/18/2024 4:42 PM [facility] CLARITY Slightly Cloudy(A) Clear Clarity 10/18/2024 4:42 PM [facility] SPECIFIC GRAVITY,URINE 1.025 1.010, 1.015, 1.020, 1.025 10/18/2024 4:42 PM [facility] PH,URINE 6.0 6.0, 7.0, 8.0, 5.5, 6.5, 7.5, 8.5 10/18/2024 4:42 PM [facility] UROBILINOGEN, QUALITATIVE Normal Normal EU/dl 10/18/2024 4:42 PM [facility] PROTEIN, URINE Negative Negative mg/dL 10/18/2024 4:42 PM [facility] GLUCOSE, URINE Negative Negative mg/dL 10/18/2024 4:42 PM [facility] KETONES,URINE Negative Negative mg/dL 10/18/2024 4:42 PM [facility] BILIRUBIN,URI NE Negative Negative 10/18/2024 4:42 PM CDT [facility] OCCULT BLOOD,URINE Moderate(A) Negative 10/18/2024 4:42 PM CDT [facility] NITRITE Negative Negative 10/18/2024 4:42 PM CDT [facility] LEUKOCYTE ESTERASE Small(A) Negative 10/18/2024 4:42 PM T [facility] Urine URINE SPECIMEN / Unknown Non-Blood / Unknown 10/18/2024 4:03 PM CDT 10/18/2024 4:17 PM CDT us Ninfa Benjamin NP URINE Final Result [facility] [address] [place] [address] * (ABNORMAL) CBC WITH AUTO DIFFERENTIAL (09/18/2024 2:27 PM CDT) WHITE BLOOD COUNT 4.3(L) 4.5 - 11.0 thou/cu mm 09/18/2024 2:30 PM [facility] RED BLOOD COUNT 5.20 4.00 - 5.20 mil/cu mm 09/18/2024 2:30 PM [facility] HEMOGLOBIN 13.3 12.0 - 16.0 g/dL 09/18/2024 2:30 PM [facility] HEMATOCRIT 41.4 33.0 - 51.0 % 09/18/2024 2:30 PM [facility] MCV 80 80 - 100 fL 09/18/2024 2:30 PM [facility] MCH 25.6(L) 26.0 - 34.0 pg 09/18/2024 2:30 PM [facility] MCHC 32.1 32.0 - 36.0 g/dL 09/18/2024 2:30 PM [facility] RDW 17.3(H) 11.5 - 15.5 % 09/18/2024 2:30 PM [facility] PLATELET COUNT 228 140 - 440 thou/cu mm 09/18/2024 2:30 PM CDT [facility] MPV 9.7 6.5 - 11.0 fL 09/18/2024 2:30 PM CDT [facility] % NEUT 38.8 % 09/18/2024 2:30 PM CDT [facility] % LYMPH 45.7 % 09/18/2024 2:30 PM CDT [facility] % MONO 12.4 % 09/18/2024 2:30 PM CDT [facility] % EOS 2.6 % 09/18/2024 2:30 PM CDT [facility] % BASO 0.5 % 09/18/2024 2:30 PM CDT [facility] ABSOLUTE NEUTROPHILS 1.7 1.7 - 7.0 thou/cu mm 09/18/2024 2:30 PM CDT [facility] ABSOLUTE LYMPHOCYTES 2.0 0.9 - 2.9 thou/cu mm 09/18/2024 2:30 PM CDT [facility] ABSOLUTE MONOCYTES 0.5 <0.9 thou/cu mm 09/18/2024 2:30 PM CDT [facility] ABSOLUTE EOSINOPHILS 0.1 <0.5 thou/cu mm 09/18/2024 2:30 PM CDT [facility] ABSOLUTE BASOPHILS 0.0 <0.3 thou/cu mm 09/18/2024 2:30 PM CDT [facility] Blood BLOOD SPECIMEN / Unknown Venipuncture / Unknown 09/18/2024 2:27 PM CDT 09/18/2024 2:27 PM CDT us Nancy Lucero MECHANICAL FITTER HEMATOLOGY Final Result [facility] [address] [place] [address] * (ABNORMAL) IRON PLUS IRON BINDING CAP (09/18/2024 2:27 PM CDT) IRON 37 37 - 145 ug/dL 09/19/2024 1:04 PM CDT [facility] UIBC (UNSATURATED) 305 112 - 347 ug/dL 09/19/2024 1:04 PM CDT [facility] IRON BINDING CAPACITY 342 250 - 400 ug/dL 09/19/2024 1:04 PM CDT [facility] IRON,% SATURATION 11(L) 14 - 50 % 09/19/2024 1:04 PM CDT [facility] Blood BLOOD SPECIMEN / Unknown Venipuncture / Unknown 09/18/2024 2:27 PM CDT 09/18/2024 2:27 PM CDT Nancy Lucero MECHANICAL FITTER CHEMISTRY Final Result Performing Organization Address [facility]/ZIP Co de Phone Number [facility] [address] [place] [address], * (ABNORMAL) FERRITIN (09/18/2024 2:27 PM CDT) FERRITIN 14.7(L) 15.0 - 150.0 ng/mL 09/19/2024 1:08 PM CDT [facility] Blood BLOOD SPECIMEN / Unknown Venipuncture / Unknown 09/18/2024 2:27 PM CDT 09/18/2024 2:27 PM CDT us Nancy Lucero MECHANICAL FITTER CHEMISTRY Final Result Performing Organization Address [facility]/ZIP Co de Phone Number [facility] [address] [place] [address], [place] * SCAN-LABORATORY REPORT (08/14/2024 12:00 AM CDT) us Scanner OTHER Final Result * SCAN-ELECTROCARDIOGRAM EKG (08/14/2024 12:00 AM CDT) us Scanner OTHER Final Result * (ABNORMAL) LIPID PANEL W REFLEX MEASURED LDL [[id number]] (07/25/2024 4:01 PM CDT) CHOLESTEROL, TOTAL 250(H) <200 mg/dL [facility] HDL CHOLESTEROL 60 > OR = 50 mg/dL [facility] TRIGLYCERIDES 187(H) <150 mg/dL [facility] LDL-CHOLESTEROL 156(H) mg/dL (calc) [facility] Comment: Reference range: <100 Desirable range <100 mg/dL for primary prevention; <70 mg/dL for patients with CHD or diabetic patients with > or = 2 CHD risk factors. LDL-C is now calculated using the Jeane calculation, which is a validated novel method providing better accuracy than the Friedewald equation in the estimation of LDL-C. Didier SS et al. TATYANA. 2013;310(55): 6397-4932 (http://education.500Shops/faq/PBM501) CHOL/HDLC RATIO 4.2 <5.0 (calc) [facility] NON HDL CHOLESTEROL 190(H) <130 mg/dL (calc) [facility] Comment: For patients with diabetes plus 1 major ASCVD risk factor, treating to a non-HDL-C goal of <100 mg/dL (LDL-C of <70 mg/dL) is considered a therapeutic option. Blood BLOOD SPECIMEN / Unknown 07/25/2024 4:01 PM CDT 07/25/2024 4:01 PM CDT Narrative [facility] - 07/26/2024 4:49 AM CDT FASTING:NO FASTING: NO Chelsea Dye NP CHEMISTRY Final Result [facility] [address] [place] [address], [facility] [address] [place] [address] * ANTI HCV (07/25/2024 4:01 PM CDT) HEPATITIS C ANTIBODY NON-REACTI VE NON-REACT JUNIOR [facility] Comment: HCV antibody was non-reactive. There is no laboratory evidence of HCV infection. In most cases, no further action is required. However, if recent HCV exposure is suspected, a test for HCV RNA (test code 05184) is suggested. For additional information please refer to http://education.Poshly/faq/KZN87v3 (This link is being provided for informational/ educational purposes only.) Blood BLOOD SPECIMEN / Unknown 07/25/2024 4:01 PM CDT 07/25/2024 4:01 PM CDT Narrative [facility] - 07/26/2024 12:40 PM CDT FASTING:NO FASTING: NO Chelsea Dye MECHANICAL FITTER SEND OUTS Final Result Performing Organization Address City/State/[facility] Co de Phone Number [facility] [address] [place] [address], [facility] [address] [place] [address] from Last 3 Months or Most Recently Relevant to Health Maintenance Insurance [facility] MEDIC[facility] PART A HB ONLY [facility] Advance Directives Documents on File Type Date Recorded Patient Pump Tender Expl anation Power of Data Entry Assistant 07/19/2024 07/19/2024 Healthcare Directive 07/19/2024 025 * [...] Code Status Discussion: Reviewed Preferences Care Teams Photographic Aide Relationship Specialty Start Date End Date Chelsea Dye NP [address] [place] [address] PCP - General Nurse Practitioner - Family 01/09/24 Nancy Lucero NP [address] [place] [address] Nurse Practitioner Hematology 04/21/24
--- NOTE | 2024-11-03 21:14 | PC.NURSE ---
pt dustinbeata is in agreement to come and pick pt up, pt claims she feels safe there, upset and not wanting to leave because of her anxiety, prior to this interaction pt threw her bedside table on the floor and spilled water all over the floor of her room, given ativan as she keeps requesting more for her anxiety, pt is ambulatory in the department and steady on feet but admits to alcohol tonight, offered to call someone else which she refuses
== END 2024-11-03 21:25 | disposition home or self-care (01) ==
PROVIDERS: Emergency Provider Student in an Organized Health Care Education/Training Program
DX: F41.9 Anxiety disorder, unspecified (principal)
CPT/HCPCS: 99283; A9270

== ENCOUNTER 2024-12-22 14:11 | Emergency (ER) | payer MEDICARE, SELFPAY ==
--- OUTSIDE RECORDS SUMMARY | 2024-12-22 14:13 | XMS_ITS | Clinical Summary ---
Author Organization [employer] [facility] Address [address] [place] [address] Care Team Providers Care Media Analytics Manager Name Role Phone Chelsea Dye NP Primary Care Provider [phone] Nancy Lucero FBI PROFILER Unavailable Allergies Active Allergy Reactions Criticality Noted Date Comments Copper Rash,Fever 01/04/2024 Medications pantoprazole (PROTONIX) 40 mg delayed-release tabletIndications :Esophagitis determined by endoscopy Take 1 Tablet (40 mg) by mouth two times daily before meals. 180 Tablet 3 03/27/19 25 Active sennosides 8.6 mg tabletIndications :Constipation, unspecified constipation type Take 2 Tablets (17.2 mg) by mouth once daily if needed for Constipati on. 180 Tablet 1 07/26/19 25 Active [id number]-d pa-fish oil 1,050-1,200 mg cap capsule Take 1 [...] by mouth once daily. 07/26/19 25 Active carboxymethylcell ulose 0.5% (Refresh Tears) 0.5 % drop ophthalmic dropsIndications: Dry eye of left side,Dry eye of right side Place 1-2 Drops into both eyes every 2 hours if needed for Dry Eyes (dry itchy eyes). 30 mL 1 07/26/19 25 Active levothyroxine (SYNTHROID) 50 mcg tabletIndications :Acquired hypothyroidism Take 1 Tablet (50 mcg) by mouth once daily. 90 Tablet 2 09/07/19 25 Active hydrOXYzine HCL (ATARAX) 25 mg tabletIndications :Anxiety Take 1/2 to 1 tablet (12.5-25mg ) up to once daily as needed for anxiety 30 Tablet 1 12/12/19 25 Active QUEtiapine (SEROQUEL) 25 mg tabletIndications :Generalized anxiety disorder with panic attacks,Insomnia, unspecified type,Mild episode of recurrent major depressive disorder Take one tab (25mg) by mouth in the morning, one tab (25mg) by mouth in the afternoon, and take two tabs (50mg) by mouth at bedtime 120 Tablet 1 12/12/19 25 Active buPROPion (Wellbutrin XL) 150 mg Extended-Release tabletIndications :Mild episode of recurrent major depressive disorder Take 1 Tablet (150 mg) by mouth once daily in the morning. 30 Tablet 1 12/12/19 25 Active busPIRone (BUSPAR) 15 mg tabletIndications :Generalized anxiety disorder with panic attacks Take 1 Tablet (15 mg) by mouth two times daily. 180 Tablet 12/19/19 25 Active QUEtiapine (SEROQUEL) 25 mg tabletIndications :Generalized anxiety disorder with panic attacks,Mild episode of recurrent major depressive disorder,Insomnia , unspecified type Take 1 tablet -25 mg by mouth in the morning as needed for acute anxiety and take 2 tabs (50) mg at bedtime 90 Tablet 2 09/20/19 25 025 Discontinued hydrOXYzine HCL (ATARAX) 25 mg tabletIndications :Anxiety Take 1 Tablet (25 mg) by mouth every 8 hours if needed for Anxiety. 15 Tablet 10/19/19 25 025 Discontinued(Re order (E-cancel not sent)) buPROPion (Wellbutrin XL) 150 mg Extended-Release tabletIndications :Moderate episode of recurrent major depressive disorder (HC) Take 1 Tablet (150 mg) by mouth once daily in the morning. 30 Tablet 1 11/07/19 25 025 Discontinued(Re order (E-cancel not sent)) PARoxetine (PAXIL) 20 mg tabletIndications :Generalized anxiety disorder with panic attacks,Moderate episode of recurrent major depressive disorder (HC) Take 1 Tablet (20 mg) by mouth once daily in the morning for 14 days, THEN 0.5 Tablets (10 mg) once daily in the morning for 14 days. Then stop. 21 Tablet 11/07/19 25 025 busPIRone (BUSPAR) 15 mg tabletIndications :Generalized anxiety disorder with panic attacks TAKE ONE TABLET BY MOUTH TWICE A DAY 60 Tablet 11/20/19 25 025 Discontinued(Re order (E-cancel not sent)) cephalexin 500 mg capsuleIndication s:Urinary tract infection without hematuria, site unspecified Take 1 Capsule (500 mg) by mouth two times daily for 7 days. 14 Capsule 11/24/19 25 025 hydrOXYzine HCL (ATARAX) 25 mg tabletIndications :Anxiety Take 1/2 to 1 tablet (12.5-25mg ) up to once daily as needed for anxiety 15 Tablet 11/30/19 25 025 Discontinued(Re order (E-cancel not sent)) QUEtiapine (SEROQUEL) 25 mg tabletIndications :Generalized anxiety disorder with panic attacks,Mild episode of recurrent major depressive disorder,Insomnia , unspecified type one tab in the morning, one tab in the afternoon, and two tabs at bedtime 20 Tablet 12/07/19 25 025 Discontinued(Re order (E-cancel not sent)) busPIRone (BUSPAR) 15 mg tabletIndications :Generalized anxiety disorder with panic attacks Take 1 Tablet (15 mg) by mouth two times daily. 60 Tablet 2 12/12/19 25 025 Discontinued(*A vailability/For mulary change/Cost of medication) Active Problems Problem Noted Date Diagnosed Date [...] encounter dx: 03/27/24: Support OP Encounter - [facility] 03/27/24: Appointment - [facility] 01/04/24: Appointment - [facility] 09/15/23: Hospital Encounter - Med/Surg, [facility] SCS 4 Oncology (from [facility]) Recent notes: 07/18/24: Consults - [facility] Telepsychiatry Consult Note by Keyon Sullivan, ... [...] Encounters Date Type Department Care Team Description 12/21/2024 Telephone [facility] [address] [place] [address] Oncology, [facility] Appointment 12/20/2024 3:45 PM CDT Office Visit [facility] [address] [place] [address] Nancy Lucero NP Follow Up (Iron deficiency anemia) 12/20/2024 Travel 12/18/2024 2:52 PM CDT - 12/18/2024 11:59 PM CDT Hospital Encounter [facility] [address] [place] [address] Iron deficiency anemia due to chronic blood loss 12/18/2024 Travel 12/18/2024 Telephone [facility] [address] [place] [address] Chelsea Dye NP Refill Request (busPIRone (BUSPAR) 15 mg tablet [[id number]]) 12/17/2024 Refill [facility] [address] [place] [address] Lily Silva NP Refill Request (Paroxetine, Quetiapine) 12/12/2024 Telephone [facility] [address] [place] [address] Saul Delaney LICSW Appointment Request 12/12/2024 Telephone [facility] [address] [place] [address] Saul Delaney LICSW Appointment (Phone Call ) 12/11/2024 9:00 AM CDT Office Visit [facility] [address] [place] [address] Lily Silva NP Medication Management; Follow Up 12/11/2024 Refill [facility] [address] [facility] [place] [address] Lily Silva NP Refill Request (Quetiapine) 12/11/2024 Travel 12/05/2024 Telephone [facility] [address] [place] [address] Lily Silva NP Refill Request (QUEtiapine (SEROQUEL) 25 mg tablet ) 12/04/2024 Refill [facility] [address] [place] [address] Lily Silva NP Refill Request (Quetiapine) 11/28/2024 Refill [facility] [address] [place] [address] Lily Silva NP Refill Request (Paroxetine) 11/27/2024 Refill [facility] [address] [place] [address] Agata Silva PA Refill Request (HYDROXYZINE HCL 25MG TABS) 11/23/2024 9:54 AM CDT - 11/23/2024 1:44 PM CDT Emergency [address] [address] Dorys Savage MD Urinary tract infection without hematuria, site unspecified (Primary Dx); Alcoholic intoxication without complication; Carotid atherosclerosis, unspecified laterality Discharge Disposition: Home Self Care 11/23/2024 Travel 11/18/2024 Refill [facility] [address] [place] [address] Lily Silva NP Refill Request (Buspirone) 11/13/2024 2:00 PM CDT Office Visit [facility] [address] [place] [address] Saul Delaney, [facility] Visit 11/13/2024 Travel 11/06/2024 2:00 PM CDT Office Visit [facility] [address] [facility] [place] [address] Lily Silva NP Medication Management (Not doing good, boy friends adopted daughter issues/Having a lot of anxiety - wants to get into therapy/Depression increased/Weight gain from paxil, wants to go back on wellbutrin and get off paxil) 11/06/2024 Travel 11/03/2024 Nurse Triage [facility] [address] [facility] [place] [address] Lily Silva NP Mental Health Issue 10/18/2024 3:55 PM CDT Office Visit [facility] [address] [place] [address] Madyson Sepulveda NP Anxiety; UTI 10/18/2024 Travel 10/03/2024 1:00 PM CDT Office Visit [facility] [address] [place] [address] Zhanna Jones NP Follow Up (Patient completed OT, brought in forms for provider.) 10/02/2024 12:58 PM CDT - 10/02/2024 11:59 PM CDT Hospital Encounter [facility] [address] [place] [address] Iron deficiency anemia due to chronic blood loss (Primary Dx) 10/02/2024 Travel 09/29/2024 1:32 PM CDT - 09/29/2024 11:59 PM CDT Hospital Encounter [facility] [address] [place] [address] Chelsea Dye, Siomara Sarabia, OT History of confusion; Mild cognitive impairment of uncertain or unknown etiology 09/29/2024 12:17 PM CDT - 09/29/2024 1:31 PM CDT Hospital Encounter [facility] [address] [place] [address] Iron deficiency anemia due to chronic blood loss (Primary Dx) 09/29/2024 Travel 09/29/2024 Refill [facility] [address] [place] [address] Lily Silva NP Refill Request (Quetiapine) 09/27/2024 2:54 PM CDT - 09/27/2024 11:59 PM CDT Hospital Encounter [facility] [address] [place] [address] Iron deficiency anemia due to chronic blood loss (Primary Dx) 09/27/2024 Travel 09/25/2024 1:00 PM CDT - 09/25/2024 11:59 PM CDT Hospital Encounter [facility] [address] [place] [address] Iron deficiency anemia due to chronic blood loss (Primary Dx) 09/25/2024 Telephone [facility] [address] [facility] [place] [address] Peyton Greenfield, OD Form 09/25/2024 Travel 09/22/2024 3:00 PM CDT Office Visit [facility] [address] [facility] [address] [facility] [address] Peyton Greenfield, OD Eye Exam 09/22/2024 11:57 AM CDT - 09/22/2024 11:59 PM CDT Hospital Encounter [facility] [address] [facility] [place] [address] Nancy Lucero NP Iron deficiency anemia due to chronic blood loss (Primary Dx) 09/22/2024 Travel from Last 3 Months Immunizations Immunization Administration [...] Tobacco: Never Tobacco Cessation:Counseling Given: Not Answered Comments:-- Alcohol Use Standard Drinks/Week Comments Not Currently 0 (1 standard drink = 0.6 oz pure alcohol) sober for 30 years, restarted for one day; 12-11-2024 PHQ-2 Answer Date Recorded PHQ-2 TOTAL SCORE 3 12/11/2024 Social Connections Answer Date Recorded Do you [...] or yelled at (see row info)? No 11/23/2024 Interpersonal Safety Abuse 12 - 18 Not on file 11/23/2024 Interpersonal Safety Ambulatory Vulnerability No t on file 11/23/2024 Utilities Answer Date Recorded Do you have trouble paying f or utilities (for example, heat, electricity, water, phone)? 1 07/18/2024 Comments No Sex and Gender Information Value Date Recorded Sex Assigned at Female 03/14/2024 1:48 PM NIGHT CLEANER Legal Sex Female 1:31 PM CDT Gender Identity Female 03/14/2024 1:48 PM NIGHT CLEANER Sexual Orientation Straight 05/06/2024 5: 03 PM NIGHT CLEANER Occupation Industry Job Start Date Job End Date Not on file Not on file Not on file Not on file Obstetrics History Last Filed Vital Signs Vital Sign Reading Time Taken Comments Blood Pressure 123/69 12/20/2024 3:41 PM CDT Pulse 80 12/20/2024 3:41 PM CDT Temperature 36.3 C (97.4 F) 12/20/2024 3:41 PM CDT Respiratory Rate 18 12/20/2024 3:41 PM CDT Oxygen Saturation 96% 12/20/2024 3:41 PM CDT Inhaled Oxygen Concentration - - Weight 70.3 kg (155 lb) 12/20/2024 3:41 PM CDT Height 167.6 cm (5' 6) 11/23/2024 9:58 AM CDT Body Mass Index 25.02 11/23/2024 9:58 AM CDT Plan of Treatment Upcoming Encounters Date Type Department Care Team (Late st Contact Info) Description 01/11/2025 8:00 AM NIGHT CLEANER Office Visit [facility] [address] [place] [address] Lily Silva, ARNOLDO [address] [place] [address] 06/18/2025 4:00 PM CDT Appointment [facility] [address] [place] [address] 06/21/2025 3:45 PM CDT Office Visit [facility] [address] [place] [phone] Nancy Lucero, FBI PROFILER [address] [place] [address] Health Maintenance Due Date Last Done Comments Tetanus booster 01/14/1967 Colonoscopy through age 75 01/14/2001 Zoster (shingles) series for age 50+ (1 of 2) 01/14/2006 RSV vaccine for adults or (1 - Risk 60-74 years 1-dose series) 2016 DEXA/DXA scan for age 65+ 01/14/2021 Influenza Vaccine (#1) 2024 BMI (ht and wt on same day) for age 18+ 07/25/2025 07/25/2024, 05/18/2024, 04/13/2024, Additional history exists Medicare Wellness for age 65+ 07/26/2025 07/25/2024 Depression screening for age 12+ 12/11/2025 12/11/2024, 11/06/2024, 09/20/2024, Additional history exists Lipids for age 45-75 07/25/2029 07/25/2024 Hepatitis C screening for age 18-79 Completed 07/25/2024 Pneumococcal series for age 50+ Completed 07/25/2024 Hepatitis B series for 19+ Aged Out N o longer eligible based on patient's age to complete this topic Mammogram for age 45-75 Discontinued Procedures Procedure Name Priority Date/Time Associated Diagnosis Comments CBC WITH AUTO DIFFERENTIAL Timed 12/18/2024 3:00 PM CDT Iron deficiency anemia due to chronic blood loss IRON PLUS IRON BINDING CAP Today 12/18/2024 3:00 PM CDT Iron deficiency anemia due to chronic blood loss FERRITIN Today 12/18/2024 3:00 PM CDT Iron deficiency anemia due to chronic blood loss CBC WITH AUTO DIFFERENTIAL Today 12/18/2024 3:00 PM CDT Iron deficiency anemia due to chronic blood loss CT ANGIO HEAD AND NECK CAROTID STAT 11/23/2024 11:[address] HEAD BRAIN WO STAT 11/23/2024 11:3 1 AM CDT URINE CULTURE TAYLOR 11/23/2024 10:55 AM CDT URINALYSIS MICROSCOPIC STAT 11/23/2024 10:55 AM CDT UA W/ SEDIMENT EXAM REFLEXED PER CRITERIA STAT 11/23/2024 10:55 AM CDT ETHANOL SERUM OR PLASMA STAT 11/23/2024 10:52 AM CDT BASIC METABOLIC PANEL STAT 11/23/2024 10:52 AM CDT CBC W PLT NO DIFF STAT 11/23/2024 10: 52 AM CDT URINALYSIS MICROSCOPIC STAT 10/18/2024 4:03 PM CDT Dysuria URINE CULTURE Routine 10/18/2024 4:03 PM CDT Dysuria UA W/ SEDIMENT EXAM REFLEXED PER CRITERIA STAT 10/18/2024 4:03 PM CDT Dysuria ANTI HCV Routine 07/25/2024 4:01 PM CDT Encounter for hepatitis C screening test for low risk patient LIPID PANEL W REFLEX MEASURED LDL Routine 07/25/2024 4:01 PM CDT Screening for cardiovascular condition from Last 3 Months or Most Recently Relevant to Health Maintenance Results * (ABNORMAL) CBC WITH AUTO DIFFERENTIAL (12/18/2024 3:00 PM CDT) WHITE BLOOD COUNT 5.0 4.5 - 11.0 thou/cu mm 12/18/2024 3:[address] [facility] RED BLOOD COUNT 5.52(H) 4.00 - 5.20 mil/cu mm 12/18/2024 3:[address] [facility] HEMOGLOBIN 15.5 12.0 - 16.0 g/dL 12/18/2024 3:[address] [facility] HEMATOCRIT 45.5 33.0 - 51.0 % 12/18/2024 3:[address] [facility] MCV 82 80 - 100 fL 12/18/2024 3:[address] [facility] MCH 28.1 26.0 - 34.0 pg 12/18/2024 3:[address] [facility] MCHC 34.1 32.0 - 36.0 g/dL 12/18/2024 3:[address] [facility] RDW 16.5(H) 11.5 - 15.5 % 12/18/2024 3:[address] [facility] PLATELET COUNT 245 140 - 440 thou/cu mm 12/18/2024 3:[address] [facility] MPV 9.4 6.5 - 11.0 fL 12/18/2024 3:[address] [facility] % NEUT 39.6 % 12/18/2024 3:[address] [facility] % LYMPH 45.5 % 12/18/2024 3:04 PM CDT [facility] % MONO 10.3 % 12/18/2024 3:04 PM CDT [facility] % EOS 4.4 % 12/18/2024 3:04 PM CDT [facility] % BASO 0.2 % 12/18/2024 3:04 PM CDT [facility] ABSOLUTE NEUTROPHILS 2.0 1.7 - 7.0 thou/cu mm 12/18/2024 3:04 PM CDT [facility] ABSOLUTE LYMPHOCYTES 2.3 0.9 - 2.9 thou/cu mm 12/18/2024 3:04 PM CDT [facility] ABSOLUTE MONOCYTES 0.5 <0.9 thou/cu mm 12/18/2024 3:04 PM CDT [facility] ABSOLUTE EOSINOPHILS 0.2 <0.5 thou/cu mm 12/18/2024 3:04 PM CDT [facility] ABSOLUTE BASOPHILS 0.0 <0.3 thou/cu mm 12/18/2024 3:04 PM CDT [facility] Blood BLOOD SPECIMEN / Unknown Butterfly / Unknown 12/18/2024 3:00 PM CDT 12/18/2024 3:00 PM CDT us Nancy Lucero NP HEMATOLOGY Final Result [facility] [address] [place] [id number] * (ABNORMAL) IRON PLUS IRON BINDING CAP (12/18/2024 3:00 PM CDT) IRON 101 37 - 145 ug/dL 12/18/2024 11:12 PM CDT [facility] UIBC (UNSATURATED) 130 112 - 347 ug/dL 12/18/2024 11:12 PM CDT [facility] IRON BINDING CAPACITY 231(L) 250 - 400 ug/dL 12/18/2024 11:12 PM CDT [facility] IRON,% SATURATION 44 14 - 50 % 12/18/2024 11:12 PM CDT [facility] Blood BLOOD SPECIMEN / Unknown Butterfly / Unknown 12/18/2024 3:00 PM CDT 12/18/2024 3:00 PM CDT us Nancy Lucero FBI PROFILER CHEMISTRY Final Result Performing Organization Address City/[facility]/ZIP Co de Phone Number [facility] [address] [place] [id number], [place] * (ABNORMAL) FERRITIN (12/18/2024 3:00 PM CDT) FERRITIN 186.0(H) 15.0 - 150.0 ng/mL 12/18/2024 11:12 PM CDT [facility] Blood BLOOD SPECIMEN / Unknown Butterfly / Unknown 12/18/2024 3:00 PM CDT 12/18/2024 3:00 PM CDT us Nancy Lucero FBI PROFILER CHEMISTRY Final Result Performing Organization Address [facility] Co de Phone Number [facility] [address] [place] [id number], [place] * CTA HEAD AND NECK CAROTID (11/23/2024 11:33 AM CDT) Anatomical Region Laterality Modality BRAIN, NECK Computed Tomogra phy 11/23/2024 11:5 3 AM CDT Addenda Addendum by Matthew Pena MD on 11/23/2024 12:29 PM CDT For Patients: As a result of the 21st Century Cures Act, medical imaging exams and procedure reports are released immediately into your electronic medical record. You may view this report before your referring provider. If you have questions, please contact your health care provider. INDICATION: Acute stroke, nystagmus, confusion. TECHNIQUE: CTA neck with contrast bolus tracking, 3D angiographic rendering using maximum intensity projection (MIP) and images permanently archived. FINDINGS: There is left carotid atherosclerosis. There is no significant carotid artery stenosis or dissection. There is no significant vertebral artery stenosis or dissection. The soft tissues are within normal limits. Degenerative changes are noted in the cervical spine, with an anterolisthesis at C4-5. IMPRESSION: Left carotid atherosclerosis without significant stenosis. Please note that all CT scans at this facility use dose modulation, iterative reconstruction, and/or weight-based dosing when appropriate to reduce radiation dose to as low as reasonably achievable. Dictated by: Matthew Pena MD @ 11/23/2024 12:29:35 (Electronically Signed) Impressions 11/23/2024 12:27 PM CDT Unremarkable CTA head. No large vessel occlusion. Please note that all CT scans at this facility use dose modulation, iterative reconstruction, and/or weight-based dosing when appropriate to reduce radiation dose to as low as reasonably achievable. Dictated by: Matthew Pena MD @ 11/23/2024 12:27:21 (Electronically Signed) Narrative 11/23/2024 12:27 PM CDT For Patients: As a result of the Cures Act, medical imaging exams and procedure reports are released immediately into your electronic medical record. You may view this report before your referring provider. If you have questions, please contact your health care provider. INDICATION: Acute stroke, nystagmus, confusion. TECHNIQUE: CTA head with contrast bolus tracking, 3D angiographic rendering using maximum intensity projection (MIP) and images permanently archived. FINDINGS: There is minor intracranial atherosclerosis. There is no large vessel occlusion. There is normal opacification of the intracranial vasculature. No aneurysm is identified. Procedure Note Matthew Pena MD - 11/23/2024 For Patients: As a result of the Cures Act, medical imagingexams and procedure reports are released immediately into your electronicmedical record. You may view this report before your referring provider.If you have questions, please contact your health care provider. INDICATION: Acute stroke, nystagmus, confusion. TECHNIQUE: CTA head with contrast bolus tracking, 3D angiographic rendering usingmaximum intensity projection (MIP) and images permanently archived. FINDINGS: There is minor intracranial atherosclerosis. There is no large vessel occlusion. There is normal opacification of the intracranial vasculature. No aneurysm is identified. IMPRESSION: Unremarkable CTA head. No large vessel occlusion. Please note that all CT scans at this facility use dose modulation,iterative reconstruction, and/or weight-based dosing when appropriate toreduce radiation dose to as low as reasonably achievable. Dictated by: Matthew Pena MD @ 11/23/2024 12:27:21 (Electronically Signed) Dorys Savage MD CT Edite d Result - Final * CT HEAD BRAIN WO (11/23/2024 11:31 AM CDT) Anatomical Region Laterality Modality HEAD, BRAIN Computed Tomogra phy 11/23/2024 11:5 0 AM CDT Impressions 11/23/2024 11:50 AM CDT 1. No acute intracranial abnormality. 2. Mild diffuse parenchymal volume loss and chronic small vessel ischemic changes. 3. Mild diffuse paranasal sinus mucosal thickening. Please note that all CT scans at this facility use dose modulation, iterative reconstruction, and/or weight-based dosing when appropriate to reduce radiation dose to as low as reasonably achievable. Dictated by Wilfredo Machado MD @ 11/23/2024 11:50:16 AM (Electronically Signed) Narrative 11/23/2024 11:50 AM CDT For Patients: As a result of the Cures Act, medical imaging exams and procedure reports are released immediately into your electronic medical record. You may view this report before your referring provider. If you have questions, please contact your health care provider. INDICATION: Mental status change. TECHNIQUE: Noncontrast CT of the head with multiplanar reconstruction utilizing bone and soft tissue algorithms. COMPARISON: None available. FINDINGS: No acute intracranial hemorrhage. Scattered hypoattenuation within the supratentorial white matter, nonspecific, but typical of chronic small vessel ischemic changes. Araiza-white matter differentiation is maintained. There is mild diffuse parenchymal volume loss. The ventricles are proportional to the sulci. No abnormal extra- axial fluid collection is identified. The skull base and calvarium are intact. The globes are symmetric. There is mild diffuse paranasal sinus mucosal thickening. Procedure Note Blu Machado MD - 11/23/2024 For Patients: As a result of the Cures Act, medical imagingexams and procedure reports are released immediately into your electronicmedical record. You may view this report before your referring provider.If you have questions, please contact your health care provider. INDICATION: Mental status change. TECHNIQUE: Noncontrast CT of the head with multiplanar reconstruction utilizing boneand soft tissue algorithms. COMPARISON: None available. FINDINGS: No acute intracranial hemorrhage. Scattered hypoattenuation within thesupratentorial white matter, nonspecific, but typical of chronic smallvessel ischemic changes. Araiza-white matter differentiation is maintained.There is mild diffuse parenchymal volume loss. The ventricles areproportional to the sulci. No abnormal extra- axial fluid collection isidentified. The skull base and calvarium are intact. The globes aresymmetric. There is mild diffuse paranasal sinus mucosal thickening. IMPRESSION: 1. No acute intracranial abnormality. 2. Mild diffuse parenchymal volume loss and chronic small vessel ischemicchanges. 3. Mild diffuse paranasal sinus mucosal thickening. Please note that all CT scans at this facility use dose modulation,iterative reconstruction, and/or weight-based dosing when appropriate toreduce radiation dose to as low as reasonably achievable. Dictated by Wilfredo Machado MD @ 11/23/2024 11:50:16 AM (Electronically Signed) Dorys Savage MD CT Final Result * (ABNORMAL) URINALYSIS MICROSCOPIC (11/23/2024 10:55 AM CDT) Only the most recent of2 resultswithin the time period is included. RBC None Seen 0-2, None Seen /HPF 11/23/2024 11:21 AM CDT [facility] WBC 3-5 0-2, 3-5, None Seen /HPF 11/23/2024 11:21 AM T [facility] BACTERIA Many(A) None Seen, Rare, Few Bacteria/ HPF 11/23/2024 11:21 AM CDT [facility] EPITHELIAL CELLS Few None Seen, Few Epi/HPF 11/23/2024 11:[address] [facility] Urine URINE SPECIMEN / Unknown Non-Blood / Unknown 11/23/2024 10:55 AM CDT 11/23/2024 11:04 AM CDT Dorys Savage MD URINE Final Result [facility] [address] [place] [address] * (ABNORMAL) URINE CULTURE (11/23/2024 10:55 AM CDT) Only the most recent of2 resultswithin the time period is included. CULTURE RESULT(A) 11/24/2024 10:09 PM CDT [facility] CULTURE >100,000 CFU/mL Klebsiella pneumoniae 11/24/2024 10:09 PM CDT [facility] Urine URINE SPECIMEN / Unknown Non-Blood / Unknown 11/23/2024 10:55 AM CDT 11/23/2024 11:04 AM CDT Narrative Organism Antibiotic Method Susceptibility Klebsiella [...] S Klebsiella pneumoniae NITROFURANTOIN 128: R us Dorys Savage MD MICROBIOLOGY Final Result [facility] [address] [place] [address], * (ABNORMAL) UA w/ SEDIMENT EXAM REFLEXED PER CRITERIA (11/23/2024 10:55 AM T) Only the most recent of2 resultswithin the time period is included. COLOR Yellow Yellow Color 11/23/2024 11:[address] [facility] CLARITY Clear Clear Clarity 11/23/2024 11:[address] [facility] SPECIFIC GRAVITY,URINE 1.010 1.010, 1.015, 1.020, 1.025 11/23/2024 11:[address] [facility] PH,URINE 5.5 6.0, 7.0, 8.0, 5.5, 6.5, 7.5, 8.5 11/23/2024 11:[address] [facility] UROBILINOGEN, QUALITATIVE Normal Normal EU/dl 11/23/2024 11:[address] [facility] PROTEIN, URINE Negative Negative mg/dL 11/23/2024 11:[address] [facility] GLUCOSE, URINE Negative Negative mg/dL 11/23/2024 11:[address] [facility] KETONES,URINE Negative Negative mg/dL 11/23/2024 11:[address] [facility] BILIRUBIN,URI NE Negative Negative 11/23/2024 11:[address] [facility] OCCULT BLOOD,URINE Small(A) Negative 11/23/2024 11:[address] [facility] NITRITE Positive(A) Negative 11/23/2024 11:[address] [facility] LEUKOCYTE ESTERASE Small(A) Negative 11/23/2024 11:[address] [facility] Urine URINE SPECIMEN / Unknown Non-Blood / Unknown 11/23/2024 10:55 AM T 11/23/2024 11:04 AM [facility] us Dorys Savage MD URINE Final Result [facility] [address] [place] [address] * (ABNORMAL) CBC W PLT NO DIFF (11/23/2024 10:52 AM CDT) WHITE BLOOD COUNT 6.8 4.5 - 11.0 thou/cu mm 11/23/2024 11:[address] [facility] RED BLOOD COUNT 5.44(H) 4.00 - 5.20 mil/cu mm 11/23/2024 11:[address] [facility] HEMOGLOBIN 15.0 12.0 - 16.0 g/dL 11/23/2024 11:[address] [facility] HEMATOCRIT 44.4 33.0 - 51.0 % 11/23/2024 11:[address] [facility] MCV 82 80 - 100 fL 11/23/2024 11:[address] [facility] MCH 27.6 26.0 - 34.0 pg 11/23/2024 11:[address] [facility] MCHC 33.8 32.0 - 36.0 g/dL 11/23/2024 11:[address] [facility] RDW 17.6(H) 11.5 - 15.5 % 11/23/2024 11:[address] [facility] PLATELET COUNT 204 140 - 440 thou/cu mm 11/23/2024 11:[address] [facility] MPV 9.4 6.5 - 11.0 fL 11/23/2024 11:[address] [facility] Blood BLOOD SPECIMEN / Unknown Venipuncture / Unknown 11/23/2024 10:52 AM CDT 11/23/2024 10:58 AM CDT us Dorys Savage MD HEMATOLOGY Final Result [facility] [address] [place] [address] * (ABNORMAL) ETHANOL SERUM OR PLASMA (11/23/2024 10:52 AM CDT) ETHANOL 0.269(H) <0.010 g/dL 11/23/2024 11:[address] [facility] Blood BLOOD SPECIMEN / Unknown Venipuncture / Unknown 11/23/2024 10:52 AM CDT 11/23/2024 10:58 AM CDT Dorys Savage MD CHEMISTRY Final Result [facility] [address] [place] [address] * (ABNORMAL) BASIC METABOLIC PANEL (11/23/2024 10:52 AM CDT) SODIUM 145 136 - 145 mmol/L 11/23/2024 11:[address] [facility] POTASSIUM 4.0 3.5 - 5.1 mmol/L 11/23/2024 11:[address] [facility] CHLORIDE 106 98 - 107 mmol/L 11/23/2024 11:[address] [facility] CO2,TOTAL 25 22 - 29 mmol/L 11/23/2024 11:[address] [facility] ANION GAP 14 5 - 18 11/23/2024 11:[address] [facility] GLUCOSE 103(H) 70 - 99 mg/dL 11/23/2024 11:[address] [facility] CALCIUM 9.1 8.8 - 10.4 mg/dL 11/23/2024 11:[address] [facility] Comment: Reference ranges for this test were updated on 01/04/2024 to reflect our healthy population more accurately. Reference range changes are not retroactively applied to results, but previous results using the same methodology can be interpreted in the context of the new reference range. BUN 14 8 - 23 mg/dL 11/23/2024 11:[address] [facility] CREATININE 0.76 0.50 - 0.90 mg/dL 11/23/2024 11:[address] [facility] BUN/CREAT RATIO 18 10 - 20 11:[address] [facility] eGFR 85(L) >90 mL/min/1. 73m2 11/23/2024 11:18 AM CDT [facility] Comment:As of 2021, eG FR is calculated by the CKD-EPI creatinine equation without race adjustment. eGFR can be influenced by muscle mass, exercise, and diet. The reported eGFR is an estimation only and is only applicable if the renal function is stable. Blood BLOOD SPECIMEN / Unknown Venipuncture / Unknown 11/23/2024 10:52 AM CDT 11/23/2024 10:58 AM CDT us Dorys Savage MD CHEMISTRY Final Result [facility] [address] [place], [place] [id number] * (ABNORMAL) LIPID PANEL W REFLEX MEASURED LDL [[id number]] (07/25/2024 4:01 PM CDT) CHOLESTEROL, TOTAL 250(H) <200 mg/dL [facility] HDL CHOLESTEROL 60 > OR = 50 mg/dL [facility] TRIGLYCERIDES 187(H) <150 mg/dL [facility] LDL-CHOLESTEROL 156(H) mg/dL (calc) [facility] Comment: Reference range: <100 Desirable range <100 mg/dL for primary prevention; <70 mg/dL for patients with CHD or diabetic patients with > or = 2 CHD risk factors. LDL-C is now calculated using the Jeane calculation, which is a validated novel method providing better accuracy than the Friedewald equation in the estimation of LDL-C. Didier THOMPSON et al. TATYANA. 2013;310(19): 5779-9653 (http://education.Valopaa.Photos to Photos/faq/FFI606) CHOL/HDLC RATIO 4.2 <5.0 (calc) [facility] NON HDL CHOLESTEROL 190(H) <130 mg/dL (calc) [facility] Comment: For patients with diabetes plus 1 major ASCVD risk factor, treating to a non-HDL-C goal of <100 mg/dL (LDL-C of <70 mg/dL) is considered a therapeutic option. Blood BLOOD SPECIMEN / Unknown 07/25/2024 4:01 PM CDT 07/25/2024 4:01 PM CDT Narrative [facility] - 07/26/2024 4:49 AM CDT FASTING:NO FASTING: NO Chelsea Dye FBI PROFILER CHEMISTRY Final Result Performing Organization Address [facility]/ZIP Co de Phone Number [facility] [address] [facility] [place] [place] [address], [facility] [address] [place] [address] * ANTI HCV (07/25/2024 4:01 PM CDT) Pathologist [facility] HEPATITIS C ANTIBODY NON-REACTI VE NON-REACT JUNIOR [facility] Comment: HCV antibody was non-reactive. There is no laboratory evidence of HCV infection. In most cases, no further action is required. However, if recent HCV exposure is suspected, a test for HCV RNA (test code 78546) is suggested. For additional information please refer to http://education.ReliSen/faq/GIE83t7 (This link is being provided for informational/ educational purposes only.) Blood BLOOD SPECIMEN / Unknown 07/25/2024 4:01 PM CDT 07/25/2024 4:01 PM CDT Narrative [facility] - 07/26/2024 12:40 PM CDT FASTING:NO FASTING: NO Chelsea Dye NP SEND OUTS Final Result Performing Organization Address [facility]/ZIP Co de Phone Number [facility] [address] [place] [address], [facility] [address] [place] [address] from Last 3 Months or Most Recently Relevant to Health Maintenance Insurance [facility] MR MEDICARE PART A HB ONLY [facility] Advance Directives Documents on File Type Date Recorded 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
--- OUTSIDE RECORDS SUMMARY | 2024-12-22 14:13 | XMS_ITS | Clinical Summary ---
Author Organization [facility] Address [address] [facility] [place] [address] Care Team Providers Care Tire Bladder Maker Name Role Phone Marnie Chelsea ARNOLDO Primary Care Provider [phone] Allergies Active Allergy Reactions Criticality Noted Date [...] by mouth every morning (before breakfast). 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 Gender Identity Not on file Sexual Orientation [...] ASSESSMENT 01/14/2021 MEDICARE ANNUAL WELLNESS VISIT 01/14/2021 PHQ-2 (once per calendar year) 2024 COVID-19 VACCINE (1 - 2024-2 6 season) 2024 INFLUENZA VACCINE (#1) 2024 RSV VACCINE (1 - 1-dose 75+ series) 01/14/2031 HPV VACCINE (No Doses Required) Completed MENINGITIS VACCINE Aged Out No longer eligible based on patient's age to complete this topic Insurance [place]ICAID [place] [employer] MEDICARE ADVANTAGE [place]ID [place] MEDICARE ADVANTAGE Care Teams Tire Bladder Maker Relationship Specialty Start Date End Date Chelsea Dye NP [address] [place] [address] [place] [address] PCP - General Nurse Practitioner 04/25/24
[2024-12-22 14:21] VITALS: BP 135/72; PULSE 88; RESP 28; TEMP 36.9; O2SAT 96; BMI 24.2
--- NOTE | 2024-12-22 14:42 | ED_ITS ---
HPI - General Adult General Chief complaint: Psychiatric Problem/Disorder <Nasim Valles MD - Last Filed: 12/23/24 08:03> Stated complaint: Mental health <Nasim Valles MD - Last Filed: 12/23/24 08:03> Time Seen by Provider: 12/22/24 14:24 <Nasim Valles MD - Last Filed: 12/23/24 08:03> History of Present Illness HPI narrative: Patient is a 69-year-old woman with a history of significant mental health issues taking number of psychiatric medications which are outlined in the chart. Patient states she has been feeling great. She states she still smokes tobacco regularly but quit drinking 3 weeks ago. Patient was feeling very well and was on her way to the dog park with her dog. When she got there she realized the dog had at some point jumped out the back window. To tracer step several times and found no evidence of her dog. Patient is be side herself. She states that if her dog is not okay she is going to kill herself by driving her car into a brick wall. Patient requests some sedation otherwise she is not able to her current situation. <Nasim Valles MD - Last Filed: 12/23/24 08:03> Related Data Home medications: Home Medications ?Medication ?Instructions ?Recorded ?Confirmed buspirone PO BID 03/03/24 levothyroxine 50 mcg capsule 50 mcg PO DAILY 03/03/24 08/14/24 aluminum-mag hydroxide-simethicone ml 08/14/24 200 mg-200 mg-20 mg/5 mL oral susp (Antacid-Antigas) carboxymethylcellulose sodium 0.5 drp ophthalmic (eye) 08/14/24 % eye drops (Refresh Tears) ondansetron 4 mg disintegrating 4 mg PO Q8H PRN 08/14/24 tablet pantoprazole 40 mg tablet,delayed 40 mg PO BID 5 08/14/24 release paroxetine HCl 10 mg tablet PO 08/14/24 quetiapine 25 mg tablet mg PO 08/14/24 sennosides 8.6 mg tablet (senna) 17.2 mg PO DAILY 07/3008/14/24 sodium chloride 0.65 % nasal spray intranasal 08/14/24 aerosol (Deep Sea Nasal) sucralfate 100 mg/mL oral ml PO 08/14/24 suspension <Nasim Valles MD - Last Filed: 12/23/24 08:03> Allergies/adverse reactions: Allergies Allergy/AdvReac Type Severity Reaction Status Date / Time copper Allergy Mild rash Verified 08/14/24 08:49 rubén Allergy Mild rash Uncoded 03/03/24 15:34 <Nasim Valles MD - Last Filed: 12/23/24 08:03> Review of Systems Status of ROS: Reports: 10 or more systems reviewed and unremarkable except as noted in History and below <Nasim Valles MD - Last Filed: 12/23/24 08:03> [facility] Social History: Social History Smoking Status: Never smoker Do you use any of these nicotine containing products: None Non-prescribed substance use: denies use service: No <Nasim Valles MD - Last Filed: 12/23/24 08:03> Exam Narrative: Exam Narrative: EXAM GENERAL: Patient appears acutely agitated. EYES: No scleral icterus. LYMPH: No supraclavicular or cervical lymphadenopathy. SKIN: Visible skin seen during exam normal or with benign process only. EXT: No dependent lower extremity pedal edema. HEART: Regular rate and rhythm with no murmurs, rubs, or gallops. LUNGS: Clear to auscultation bilaterally with no crackles or wheezes. ABD: Soft, non tender, non distended. PSYCH: Good eye contact, speech is not pressured. <Nasim Valles MD - Last Filed: 12/23/24 08:03> Const: Vital Signs, click to edit/add: Vital Signs - 24 hr 12/22/24 14:21 Temperature 98.4 F Pulse Rate [Pulse Oximeter] 88 Respiratory Rate 28 H Blood Pressure [Ri ght Upper Arm] 135/72 Pulse Oximetry 96 Oxygen Delivery Me thod Room Air <Nasim Valles MD - Last Filed: 12/23/24 08:03> Vital Signs, click to edit/add: Vital Signs - 24 hr 12/22/24 14:21 Temperature 98.4 F Pulse Rate [Pulse Oximeter] 88 Respiratory Rate 28 H Blood Pressure [Ri ght Upper Arm] 135/72 Pulse Oximetry 96 Oxygen Delivery Me thod Room Air <Faby Ferro MD - Last Filed: 12/22/24 16:48> Course Course ED Course: Patient seen and examined. She is agitated and be side herself. No trying to leave even though she states that she was suicidal. I did give her 1 mg of Ativan and we are placing on her mental health hold at this time. Standard laboratory studies are pending and mental health consultation pending. <Nasim Valles MD - Last Filed: 12/23/24 08:03> Reevaluation(s) Reevaluation #1: Patient forcibly tried to escape the ER. She is now on a mental health hold and has received 1 mg of oral lorazepam and 5 mg of IM Zyprexa. <Nasim Valles MD - Last Filed: 12/23/24 08:03> Reevaluation #2: Patient was evaluated by a psychiatrist from [facility]. According to him, patient said that she was very upset when she 1st got here but regrets saying that she was going to kill herself, she says she does not have any interest in dying and does not feel suicidal anymore. She agrees with that assessment when I talked were, she says that she was just upset and is feeling better. She feels safe going home. Continue current medications, primary care follow-up in the next week for recheck. Return if worsening. <Faby Ferro MD - Last Filed: 12/22/24 16:48> Vital Signs Vital signs: Initial Vital Signs Temperature 98.4 F 12/22/24 14:21 Temperature Source Temporal Artery Scan 12/22/24 14:21 Pulse Rate 88 12/22/24 14:21 Respiratory Rate 28 H 12/22/24 14:21 Blood Pressure 135/72 12/22/24 14:21 Blood Pressure Mean 93 12/22/24 14:21 Blood Pressure Position Sitting 12/22/24 14:21 Pulse Oximetry 96 12/22/24 14:21 Oxygen Delivery Method Room Air 12/22/24 14:21 Vital Signs Temperature 98.4 F 12/22/24 14:21 Pulse Rate 88 12/22/24 14:21 Respiratory Rate 28 H 12/22/24 14:21 Blood Pressure 135/72 12/22/24 14:21 Pulse Oximetry 96 12/22/24 14:21 Oxygen Delivery Method Room Air 12/22/24 14:21 Temperature 98.4 F 12/22/24 14:21 Pulse Rate 88 12/22/24 14:21 Respiratory Rate 28 H 12/22/24 14:21 Blood Pressure 135/72 12/22/24 14:21 Pulse Oximetry 96 12/22/24 14:21 Oxygen Delivery Method Room Air 12/22/24 14:21 <Nasim Valles MD - Last Filed: 12/23/24 08:03> Initial Vital Signs Temperature 98.4 F 12/22/24 14:21 Temperature Source Temporal Artery Scan 12/22/24 14:21 Pulse Rate 88 12/22/24 14:21 Respiratory Rate 28 H 12/22/24 14:21 Blood Pressure 135/72 12/22/24 14:21 Blood Pressure Mean 93 12/22/24 14:21 Blood Pressure Position Sitting 12/22/24 14:21 Pulse Oximetry 96 12/22/24 14:21 Oxygen Delivery Method Room Air 12/22/24 14:21 Vital Signs Temperature 98.4 F 12/22/24 14:21 Pulse Rate 88 12/22/24 14:21 Respiratory Rate 28 H 12/22/24 14:21 Blood Pressure 135/72 12/22/24 14:21 Pulse Oximetry 96 12/22/24 14:21 Oxygen Delivery Method Room Air 12/22/24 14:21 Temperature 98.4 F 12/22/24 14:21 Pulse Rate 88 12/22/24 14:21 Respiratory Rate 28 H 12/22/24 14:21 Blood Pressure 135/72 12/22/24 14:21 Pulse Oximetry 96 12/22/24 14:21 Oxygen Delivery Method Room Air 12/22/24 14:21 <Faby Ferro MD - Last Filed: 12/22/24 16:48> Medications Administered Medications: Discontinued Medications Generic Name Dose Route Start Last Admin Trade Name Freq PRN Reason Stop Dose Admin Lorazepam 1 mg 12/22/24 14:42 12/22/24 14:45 Lorazepam 1 Mg Tablet PO 12/22/24 14:43 1 mg ONCE ONE Administration Olanzapine 5 mg 12/22/24 14:52 12/22/24 15:05 Olanzapine 5 Mg/Ml Inj IM 5 mg ONCE PRN Administration Agitation Olanzapine 5 mg 12/22/24 15:36 12/22/24 15:40 Olanzapine 5 Mg/Ml Inj IM 12/22/24 15:37 5 mg ONCE ONE Administration <Nasim Valles MD - Last Filed: 12/23/24 08:03> Discontinued Medications Generic Name Dose Route Start Last Admin Trade Name Freq PRN Reason Stop Dose Admin Lorazepam 1 mg 12/22/24 14:42 12/22/24 14:45 Lorazepam 1 Mg Tablet PO 12/22/24 14:43 1 mg ONCE ONE Administration Olanzapine 5 mg 12/22/24 14:52 12/22/24 15:05 Olanzapine 5 Mg/Ml Inj IM 5 mg ONCE PRN Administration Agitation Olanzapine 5 mg 12/22/24 15:36 12/22/24 15:40 Olanzapine 5 Mg/Ml Inj IM 12/22/24 15:37 5 mg ONCE ONE Administration <Fbay Ferro MD - Last Filed: 12/22/24 16:48> Medical Decision Making Lab Data Labs: Lab Results 12/22/24 Range/Units 14:52 WBC 4.93 (4.50-11.00) K/uL RBC 5.67 H (4.00-5.20) m/uL Hgb 15.8 (12.0-16.0) gm/dL Hct 47.0 (33.0-51.0) % MCV 83 (80-100) fL MCH 28 (26-34) pg MCHC 34 (32-36) gm/dL RDW Coeff of Krissy 15.3 (11.5-15.5) % Plt Count 237 (140-440) K/uL Neut % (Auto) 36.9 L (42.0-72.0) % Lymph % (Auto) 49.3 H (20-44) % [place] % (Auto) 8.7 (0.0-11.0) % Eos % (Auto) 4.5 (0.0-7.0) % Baso % (Auto) 0.4 (0.0-3.0) % Neut # (Auto) 1.80 (1.7-7.0) K/uL Lymph # (Auto) 2.40 (0.90-2.90) K/uL [place] # (Auto) 0.40 (0.00-0.90) K/UL Eos # (Auto) 0.22 (0.00-0.50) K/uL Baso # (Auto) 0.02 (0.00-0.30) K/uL Abs Immat Gran (auto) 0.01 (0.00-0.30) K/uL Imm/Tot Granulo (auto) 0.2 % Sodium 135 (135-149) mmol/L Potassium 4.0 (3.6-5.1) mmol/L Chloride 103 (96-114) mmol/L Carbon Dioxide 22 (20-32) mmol/L Anion Gap 10 (7-15) mEq/L BUN 9 (7-30) mg/dL Creatinine 0.8 (0.5-1.5) mg/dL Estimated Creat Clear 50.41 Estimated GFR 80 ml/min Glucose 110 (60-115) mg/dL Calcium 9.5 (8.4-10.6) mg/dL Total Bilirubin 0.7 (0.1-1.5) mg/dL AST 33 (12-35) U/L ALT 18 (4-35) U/L Alkaline Phosphatase 124 (40-150) U/L Total Protein 7.4 (6.0-8.3) g/dL Albumin 4.5 (3.3-5.0) g/dL Salicylates < 1.0 L (1.0-10) mg/dL Acetaminophen < 10.0 (10.0-30.0) ug/mL Ethyl Alcohol 0.02 (0.01-0.03) % <Nasim Valles MD - Last Filed: 12/23/24 08:03> Lab Results 12/22/24 Range/Units 14:52 WBC 4.93 (4.50-11.00) K/uL RBC 5.67 H (4.00-5.20) m/uL Hgb 15.8 (12.0-16.0) gm/dL Hct 47.0 (33.0-51.0) % MCV 83 (80-100) fL MCH 28 (26-34) pg MCHC 34 (32-36) gm/dL RDW Coeff of Krissy 15.3 (11.5-15.5) % Plt Count 237 (140-440) K/uL Neut % (Auto) 36.9 L (42.0-72.0) % Lymph % (Auto) 49.3 H (20-44) % [place] % (Auto) 8.7 (0.0-11.0) % Eos % (Auto) 4.5 (0.0-7.0) % Baso % (Auto) 0.4 (0.0-3.0) % Neut # (Auto) 1.80 (1.7-7.0) K/uL Lymph # (Auto) 2.40 (0.90-2.90) K/uL [place] # (Auto) 0.40 (0.00-0.90) K/UL Eos # (Auto) 0.22 (0.00-0.50) K/uL Baso # (Auto) 0.02 (0.00-0.30) K/uL Abs Immat Gran (auto) 0.01 (0.00-0.30) K/uL Imm/Tot Granulo (auto) 0.2 % Sodium 135 (135-149) mmol/L Potassium 4.0 (3.6-5.1) mmol/L Chloride 103 (96-114) mmol/L Carbon Dioxide 22 (20-32) mmol/L Anion Gap 10 (7-15) mEq/L BUN 9 (7-30) mg/dL Creatinine 0.8 (0.5-1.5) mg/dL Estimated Creat Clear 50.41 Estimated GFR 80 ml/min Glucose 110 (60-115) mg/dL Calcium 9.5 (8.4-10.6) mg/dL Total Bilirubin 0.7 (0.1-1.5) mg/dL AST 33 (12-35) U/L ALT 18 (4-35) U/L Alkaline Phosphatase 124 (40-150) U/L Total Protein 7.4 (6.0-8.3) g/dL Albumin 4.5 (3.3-5.0) g/dL Salicylates < 1.0 L (1.0-10) mg/dL Acetaminophen < 10.0 (10.0-30.0) ug/mL Ethyl Alcohol 0.02 (0.01-0.03) % <Faby Ferro MD - Last Filed: 12/22/24 16:48> Discharge Plan Discharge Clinical Impression: Emotional crisis, acute reaction to stress <Nasim Valles MD - Last Filed: 12/23/24 08:03> Patient Disposition: Home, Self-Care <Nasim Valles MD - Last Filed: 12/23/24 08:03> Condition: Improved <Nasim Valles MD - Last Filed: 12/23/24 08:03> Additional Instructions: Return if you are feeling worse. Follow-up with your regular provider if you continue to have difficulty. <Nasim Valles MD - Last Filed: 12/23/24 08:03> Prescriptions: No Action quetiapine 25 mg tablet PO sennosides [senna] 8.6 mg tablet 17.2 mg PO DAILY paroxetine HCl 10 mg tablet PO sucralfate 100 mg/mL suspension PO carboxymethylcellulose sodium [Refresh Tears] 0.5 % drops ophthalmic (eye) pantoprazole 40 mg tablet,delayed release (DR/EC) 40 mg PO BID alum-mag hydroxide-simeth [Antacid-Antigas] 200-200-20 mg/5 mL suspension Patient Comments: [NO ORIGINAL SIG] ondansetron 4 mg tablet,disintegrating 4 mg PO Q8H PRN Deep Sea Nasal 0.65 % aerosol,spray INTRANASAL Patient Comments: [NO ORIGINAL SIG] levothyroxine 50 mcg capsule 50 mcg PO DAILY buspirone PO BID <Nasim Valles MD - Last Filed: 12/23/24 08:03> Follow Up/Referrals: Provider,Not a Local [Primary Care Provider, Family Practice] <Nasim Valles MD - Last Filed: 12/23/24 08:03> Stand Alone Forms: [email or web address] Info Instructions <Nasim Valles MD - Last Filed: 12/23/24 08:03>
[2024-12-22 14:59] LABS: Hematocrit* 47.0 % (33.0-51.0); Hemoglobin* 15.8 gm/dL (12.0-16.0); Immature Granulocytes Abs Auto 0.01 K/uL (0.00-0.30); Immature Granulocytes Pct Auto 0.2 %; Mean Corpuscular HGB Conc 34 gm/dL (32-36); Mean Corpuscular Hemoglobin 28 pg (26-34); Mean Corpuscular Volume 83 fL (80-100); RDW Coefficient of Variation % 15.3 % (11.5-15.5); Red Blood Count* 5.67 m/uL (4.00-5.20); White Blood Count* 4.93 K/uL (4.50-11.00)
[2024-12-22 15:05] LABS: Lymphocytes Absolute Auto 2.40 K/uL (0.90-2.90); Slide Review Reflex No
[2024-12-22] MEDS: OLANZapine 5 MG/ML inj IM ×2 (15:05→15:40)
[2024-12-22 15:18] LABS: Albumin* 4.5 g/dL (3.3-5.0); Chloride* 103 mmol/L (96-114); Potassium* 4.0 mmol/L (3.6-5.1); Sodium* 135 mmol/L (135-149)
[2024-12-22 15:20] LABS: Blood Urea Nitrogen* 9 mg/dL (7-30); Creatinine* 0.8 mg/dL (0.5-1.5); Est. Creatinine Clearance* 50.41; Estimated Glomerular Filt Rate 80 ml/min
[2024-12-22 15:21] LABS: Alanine Aminotransferase* 18 U/L (4-35); Alkaline Phosphatase* 124 U/L (40-150); Anion Gap 10 mEq/L (7-15); Aspartate Amino Transferase* 33 U/L (12-35); Bilirubin Total* 0.7 mg/dL (0.1-1.5); Calcium* 9.5 mg/dL (8.4-10.6); Carbon Dioxide* 22 mmol/L (20-32); Glucose* 110 mg/dL (60-115); Total Protein* 7.4 g/dL (6.0-8.3)
[2024-12-22 15:22] LABS: Acetaminophen* < 10.0 ug/mL (10.0-30.0); Ethanol* 0.02 % (0.01-0.03); Salicylate* < 1.0 mg/dL (1.0-10)
== END 2024-12-22 16:53 | disposition home or self-care (01) ==
PROVIDERS: Internal Medicine; Emergency Provider Emergency Medicine
DX: F43.9 Reaction to severe stress, unspecified (principal); Z87.891 Personal history of nicotine dependence
CPT/HCPCS: 36415; 80053; 80143; 80179; 80306; 82077; 85025; 96372; 99283; 99284; 99285; Q3014; A9270